=== PATIENT | male | born 1935 | race Asian ===

== ENCOUNTER 2018-07-16 23:12 | Inpatient (IN) | payer MEDICARE, BC ==
[~2018-07-16] VITALS: Ht 175.3 cm; Wt 39.0 kg
[~2018-07-16 23:12] MED LIST: GLIPIZIDE PO; LEVOTHYROXINE PO; LIPITOR PO; METFORMIN PO
[2018-07-16] MEDS ORDERED: IPRATROPIUM (NEB) 0.5 MG/2.5 ML AMP INH STA (23:32)
[2018-07-16] MEDS ORDERED: SODIUM CHLORIDE 0.9% 1L BAG IV* STA (23:32)
[2018-07-16] MEDS ORDERED: AZITHROMYCIN 500MG/NS (PMX) 250 ML IV STA (23:32)
[2018-07-16] MEDS ORDERED: CEFTRIAXONE 1 GM/50 ML (PMX) 50 ML IVPB STA (23:32)
[2018-07-16] MEDS ORDERED: ALBUTEROL 0.083% (NEB) 2.5 MG/3 ML AMP INH STA (23:32)
--- NOTE | 2018-07-16 23:49 | ERD ---
ER Documentation Chief Complaint Chief Complaint PT C/O WEAKNESS,LOW APPETITE AND SOB.USE OF ACCESSORY MUSCLES NOTED HPI 83-year-old male presents for generalized weakness, appetite, with a history of tongue cancer, and concern for pneumonia. Patient had been referred by his primary care doctor, Dr. Ruiz for admission. History obtained from patient and family, he has been breathing somewhat rapidly, and was treated empi rically as an outpatient for possible pneumonia. However his family have still noted his breathing being fast. He has not had a fever, he has not had any confusion, no chest pain or shortness of breath. ROS All systems reviewed and are negative except as per history of present illness. Medications Home Meds Reported Medications [Levothyroxine] No Conflict Check, PO DAILY 06/16/11 [Lipitor] No Conflict Check, PO DAILY 06/16/11 [Metformin] No Conflict Check, PO BID 06/16/11 [Glipizide] No Conflict Check, PO DAILY 06/16/11 Allergies Allergies: Coded Allergies: No Known Drug Allergies (Verified Allergy, 06/16/11) PMhx/Soc History of Surgery: No Anesthesia Reaction: No Hx Neurological Disorder: No Hx Respiratory Disorders: No Hx Cardiac Disorders: No Hx Psychiatric Problems: No Hx Miscellaneous Medical Probl: No Hx Alcohol Use: Yes (OCC[employer]IONALLY [employer]) Hx Substance Use: No Hx Tobacco Use: No Physical Exam Vitals Vital Signs Date Temp Pulse Resp B/P (MAP) Pulse Ox O2 O2 Flow FiO2 Time Delivery Rate 07/16/18 90 18 100 Nasal 2.0 23:49 Cannula 07/16/18 97.9 125 16 156/93 94 23:17 (114) Physical Exam Const: Thin cachectic appearing, chronically ill Head: Atraumatic Eyes: Normal Conjunctiva ENT: Normal External Ears, Nose and Mouth. Neck: Full range of motion. No meningismus. Surgery site of her neck clean dry and intact Resp: Clear to auscultation bilaterally, tachypneic Cardio: Regular rate and rhythm, no murmurs Abd: Soft, non tender, non distended. Normal bowel sounds Skin: No petechiae or rashes Back: No midline or flank tenderness Ext: No cyanosis, or edema Neur: Awake and alert Psych: Normal Mood and Affect Result Diagram: 07/16/18 0133 07/16/18 7107 Results 24 hrs Laboratory Tests Test 07/16/18 23:55 07/17/18 00:20 White Blood Count 8.1 10^3/ul Red Blood Count 4.06 10^6/ul Hemoglobin 12.9 g/dl Hematocrit 40.2 % Mean Corpuscular Volume 99.0 fl Mean Corpuscular Hemoglobin 31.8 pg Mean Corpuscular Hemoglobin Concent 32.1 g/dl Red Cell Distribution Width 13.6 % Platelet Count 291 10^3/UL Mean Platelet Volume 9.6 fl Immature Granulocytes % 0.500 % Neutrophils % 86.9 % Lymphocytes % 4.2 % Monocytes % 7.7 % Eosinophils % 0.2 % Basophils % 0.5 % Nucleated Red Blood Cells % 0.0 /100WBC Immature Granulocytes # 0.040 10^3/ul Neutrophils # 7.0 10^3/ul Lymphocytes # 0.3 10^3/ul Monocytes # 0.6 10^3/ul Eosinophils # 0.0 10^3/ul Basophils # 0.0 10^3/ul Nucleated Red Blood Cells # 0.0 10^3/ul Prothrombin Time 13.8 Sec Prothrombin Time Ratio 1.1 INR International Normalized Ratio 1.05 Activated Partial Thromboplast Time 24.4 Sec Blood Gas Specimen Source Blood venous Arterial Blood Date Drawn 07/17/2018 12:00:03 AM Arterial Blood Gas Puncture Site VENOUS LINE Shorty Test N/A Venous Blood pH 7.371 Venous Blood pCO2 (Temp Corrected) 46.2 mmHG Venous Blood pO2 (Temp Corrected) 26.8 mmHG Venous Blood HCO3 26.2 mmol/L Venous Blood Oxygen Saturation 45.2 mmHG Venous Blood Base Excess 0.4 mmol/L Venous Blood Total Hemoglobin 14.6 g/dl Venous Blood Oxyhemoglobin 44.7 % Venous Blood Methemoglobin 0.2 % Carboxyhemoglobin 0.8 % Blood Gas Temperature 37.0 C Blood Gas Actual Respiration Rate 20 Blood Gas Modality NASAL CANNULA FiO2 27.0 % Blood Gas Notified Whom Vincent LAMB RCP Blood Gas Notified Time 07/17/2018 12:06:25 AM Sodium Level 142 mmol/L Potassium Level 6.0 mmol/L Chloride Level 104 mmol/L Carbon Dioxide Level 28 mmol/L Anion Gap 10 Blood Urea Nitrogen 65 mg/dl Creatinine 1.29 mg/dl Est Glomerular Filtrat Rate mL/min mL/min Glucose Level 897 mg/dl Calcium Level 10.4 mg/dl Total Bilirubin 0.4 mg/dl Direct Bilirubin 0.00 mg/dl Indirect Bilirubin 0.4 mg/dl Aspartate Amino Transf (AST/SGOT) 29 IU/L Alanine Aminotransferase (ALT/SGPT) 17 IU/L Alkaline Phosphatase 137 IU/L Troponin I < 0.012 ng/ml B-Type Natriuretic Peptide 489 PG/ML Total Protein 8.2 g/dl Albumin 4.0 g/dl Globulin 4.20 g/dl Albumin/Globulin Ratio 0.95 POC Venous Lactate 2.4 mmol/L Current Medications Medications Dose Sig/Sarah Start Time Status Last (Trade) Ordered Route PRN Stop Time Admin Dose Reason Admin Sodium 500 ml BOLUS OVER 2 07/16/18 DC 07/17/18 Chloride HOURS STAT 23:32 07/16/18 00:39 (NS) IV* 23:36 Ceftriaxone 50 ml @ ONCE STAT 07/16/18 DC 07/17/18 Sodium 100 mls/hr IVPB 23:32 07/17/18 00:39 00:01 Azithromycin 250 ml @ ONCE STAT 07/16/18 DC 250 mls/hr IV 23:32 07/17/18 00:31 Albuterol 5 mg ONCE STAT 07/16/18 DC 07/16/18 (Proventil INH 23:32 07/16/18 23:49 0.083% (Neb)) 23:37 Ipratropium 0.5 mg ONCE STAT 07/16/18 DC 07/16/18 [place] INH 23:32 07/16/18 23:49 (Atrovent 23:37 0.02% (Neb)) Ondansetron 4 mg ER BRIDGE 07/17/18 HCl (Zofran PRN IV 00:00 07/17/18 Inj) NAUSEA/VOMITI 23:59 NG 650 mg ER BRIDGE 07/17/18 Acetaminophen PRN PO 00:00 07/17/18 (Tylenol .MILD PAIN 23:59 Tab) 1-3 OR TEMP Discontinue PROTOCOL 07/17/18 DC Miscellaneous all previ... ONCE XX 01:00 07/17/18 01:02 Information (* Miscellaneous Pharmacy Order) Diagnostic 1 ea Q1H XX 07/17/18 Test (Pha) 01:00 (Accu-Chek) Insulin 100 ml @ 0 PER 07/17/18 Human mls/hr PROTOCOL IV 01:00 Regular 100 unit/ Sodium Chloride Treatment Per 07/17/18 Miscellaneous of protocol XX 01:00 Hypoglycemia: Information 1.BG 51... (* Miscellaneous Pharmacy Order) Dextrose 25 ml Q15M PRN 07/17/18 (D50w IV 01:00 Syringe) .DECREASED GLUCOSE Dextrose 50 ml Q15M PRN 07/17/18 (D50w IV 01:00 Syringe) .DECREASED GLUCOSE Procedures/MDM This is an 83-year-old male who presents for evaluation of failure to thrive, as well as possible pneumonia. Patient appeared to be chronically ill, which is most likely secondary to his malignancy. His O2 sat was actually relatively nor mal, he is given a breathing treatment, and given empiric antibiotics ceftriaxone as a thrill to treat for the possible pneumonia. As his O2 sat was actually normal, I ordered a VBG to assess for possible acidosis, he does not have any evidence of DKA or metabolic acidosis. However his can panel returned with a blood sugar of 897, given these findings, he will be started on insulin drip, and will be admitted to the ICU. The patient has otherwise remained hemodynamically stable. Critical Care Time: 35 minutes Treatments/Evaluations: Close monitoring and treatment of unstable vital signs, cardiorespiratory, and neurologic status, while maintaining tight balance of fluid, respiratory, and cardiac interventions. This time includes discussing the case with the patient and the patient's family. This time does not include all procedures stated elsewhere in this record. This time also includes reviewing old records, labs and radiological studies. This time includes examining and re-examining the patient. Additionally, this time also includes arranging care with admitting and consulting physicians. EKG: Rate/Rhythm: Normal Sinus Rhythm QRS, ST, T-waves: No changes consistent w/ acute ischemia Impression: No evidence of ischemia or arrhythmia Accepting Care Team: Current data and ongoing care discussed. Primary: Joseph Consulting: None Outstanding Data: none Departure Diagnosis: Primary Impression: Hyperglycemia Additional Impressions: Failure to thrive Failure to thrive age range: in adult Qualified Codes: R62.7 - Adult fail ure to thrive Pneumonia Pneumonia type: due to unspecified organism Laterality: unspecified laterality Lung location: unspecified part of lung Qualified Codes: J18.9 - Pneumonia, unspecified organism Condition: VINH Shen MD Jul 16, 2018 23:49
[2018-07-17] VITALS (22 sets, daily range): BP systolic 108–134; BP diastolic 63–77; PULSE 79–158; RESP 22–34; Ht 175.3 cm; Wt 39.0 kg
[2018-07-17] MEDS ORDERED: ONDANSETRON 4 MG INJ IV PRN
[2018-07-17] MEDS ORDERED: ACETAMINOPHEN 325 MG TAB PO PRN
[2018-07-17] MEDS ORDERED: INSULIN HUMAN REGULAR 100 UNIT in SOD CHLORIDE 0.9% 99 ML IV SCH (01:00)
[2018-07-17] MEDS ORDERED: DEXTROSE 50% 50 ML SYRINGE IV PRN ×4 (01:00→17:30)
[2018-07-17] MEDS ORDERED: SOD CHLORIDE 0.9% 1,000 ML IV ONE (01:30)
[2018-07-17] MEDS: ACCU-CHEK XX SCH ×11 (02:00→11:13)
[2018-07-17] MEDS ORDERED: MIRT15TA5 PO (02:53)
[2018-07-17] MEDS ORDERED: TRAZ-149 PO (02:53)
[2018-07-17] MEDS ORDERED: GLIP5TAB13 PO (02:53)
[2018-07-17] MEDS ORDERED: METF500T24 PO (02:53)
[2018-07-17] MEDS ORDERED: SOD CHLORIDE 0.9% 1,000 ML IV SCH (04:00)
[2018-07-17] MEDS ORDERED: ALBUTEROL 0.083% (NEB) 2.5 MG/3 ML AMP HHN PRN (04:00)
[2018-07-17] MEDS: CEFTRIAXONE 1 GM/50 ML (PMX) 50 ML IVPB SCH (08:24)
[2018-07-17] MEDS: AZITHROMYCIN 500MG/NS (PMX) 250 ML IVPB SCH (11:07)
[2018-07-17] MEDS ORDERED: POTASSIUM CHLORIDE 20 MEQ in SOD CHLORIDE 0.9% 1,000 ML IV SCH (13:00)
[2018-07-17] MEDS ORDERED: POTASSIUM CHLORIDE 0 ML IVPB ONE (13:03)
[2018-07-17] MEDS: POTASSIUM CHLORIDE 20 MEQ in SOD CHLORIDE 0.9% 1,000 ML IV SCH (14:16)
[2018-07-17] MEDS: INSULIN ASPART [NOVOLOG] 3 ML PEN SC SCH ×3 (14:18→20:17)
[2018-07-17] MEDS ORDERED: GLUCOSE GEL 15 GRAM TUBE BUCCAL PRN (17:30)
[2018-07-17] MEDS ORDERED: GLUCAGON 1 MG INJ IM PRN (17:30)
[2018-07-17] MEDS ORDERED: GLUCOSE GEL 15 GRAM TUBE PO PRN ×2 (17:30)
--- NOTE | 2018-07-17 17:32 | CONS ---
DATE OF ADMISSION: 07/16/2018 DATE OF CONSULTATION: TYPE OF CONSULTATION: Gastroenterology. HISTORY OF PRESENT ILLNESS: The patient is an 83-year-old male, who came to the ER complaining of lo ss of appetite and generalized weakness. In the ER, he was evaluated and found to have severe hyperg lycemia with a glucose greater than 800 and lactic acidosis, so he was admitted to intensive care [facility] for further management. The patient also had a tongue cancer on the right side. He had a right he miglossectomy, but a few months ago, he developed positive lymph nodes on the left side and also the tumor on the left side, so he had to undergo block dissection of the left side of the neck and also r adiation and chemo. GI consult was called in for a dysphagia and possible placement of G-tube. Disc ussed with the son, and as per him that his p.o. intake has been extremely poor. He has been losing weight. Barely, he is able to drink Glucerna. No abdominal surgery. No abdominal pain. REVIEW OF SYSTEMS: Otherwise negative. PAST MEDICAL HISTORY: Hypothyroidism, diabetes mellitus. ALLERGIES: NONE. SOCIAL HISTORY: Used to chew tobacco. Does not smoke. Alcohol socially. PHYSICAL EXAMINATION VITALS: Stable. GENERAL: Alert, awake, not in distress. The patient definitely has lost weight. ABDOMEN: Benign. LUNGS: Clear. EXTREMITIES: No edema. CENTRAL NERVOUS SYSTEM: Grossly within normal limits. LABORATORY DATA: Hematocrit is 35.2. WBC is 9.3. INR is 1.1, glucose is 290. IMPRESSION: 1. Dysphagia. 2. Cancer of the tongue and a lymph node, status post block dissection of the left side ,status post radiation and chemotherapy. 3. Diabetes mellitus. 4. Hypothyroidism. 5. Weight loss. PLAN: To optimize his blood sugar and lactic acid level and we will proceed with the placement of G- tube on Thursday. Discussed with the son, who was by the side of the patient and has agreed. We will use a push technique instead of a pull technique to prevent seeding of the tumor at the G-tube site. Dictated By: JC MALONEY/NTS Conf#: [id number] DID#: [id number] CC: DANNY GUEVARA MD;*EndCC*
[2018-07-17] MEDS ORDERED: INSULIN ASPART [NOVOLOG] 3 ML PEN SC SCH (17:35)
[2018-07-17] MEDS ORDERED: traZODone 50 MG TAB PO SCH (21:00)
[2018-07-18] VITALS (23 sets, daily range): BP systolic 92–155; BP diastolic 53–81; PULSE 79–104; RESP 19–32
[2018-07-18] MEDS: POTASSIUM CHLORIDE 20 MEQ in SOD CHLORIDE 0.9% 1,000 ML IV SCH ×4 (00:12→23:16)
[2018-07-18] MEDS: INSULIN ASPART [NOVOLOG] 3 ML PEN SC SCH ×6 (00:16→21:07)
[2018-07-18] MEDS: ACCU-CHEK XX SCH (02:00)
[2018-07-18] MEDS: morphine 4 MG/ML VIAL IV PRN ×3 (02:20→17:45)
[2018-07-18] MEDS: CEFTRIAXONE 1 GM/50 ML (PMX) 50 ML IVPB SCH (08:10)
[2018-07-18] MEDS: AZITHROMYCIN 500MG/NS (PMX) 250 ML IVPB SCH (10:35)
[2018-07-18] MEDS ORDERED: SILVER SULFADIAZINE 1% 25 GM CR TOP ONE (14:30)
[2018-07-18] MEDS: HYDROGEN PEROXIDE 118 ML TOP SCH (14:30)
--- NOTE | 2018-07-18 16:58 | PN ---
DATE: 07/18/2018 SUBJECTIVE: The patient is presently lethargic, has a congested cough. P.o. intake is very poor. OBJECTIVE: VITAL SIGNS: Temperature 99.6, blood pressure 128/64, O2 saturation 96% on nasal cannula. NECK: JVD is not increased. CHEST: Reveals few crackles at the right base. HEART: S1, S2 heard. No definite gallops. EXTREMITIES: No edema. Wasting of the lower extremities. Homans sign is negative. No bleeding not ed from the left neck wound. IMAGING DATA: Chest x-ray from today shows persistent right upper lobe infiltrate. LABORATORY DATA: Blood glucose levels this morning 239, 244, 160 and 330. I and O: 2810 intake. O utput is 1350. BUN is down to 28, creatinine 0.93. Sodium 149. WBC count 9.3, hematocrit 31.5, jerry telet count is 210. Dr. Gleason's GI consultation greatly appreciated. IMPRESSION: 1. 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 2. Diabetes mellitus type 2, uncontrolled. No evidence of diabetic ketoacidosis. 3. Dehydration with prerenal azotemia with lactic acidosis. 4. Right upper lobe pneumonia, possible underlying cancer not ruled out. 5. Mild anemia. Sputum Gram stain and culture and sputum ____ is pending. PLAN: We will proceed with CT of the chest tomorrow and also PEG placement. We will discuss further care with Dr. Perez. We will also request an ID consultation with Dr. Jeffery. Follow recommendatio ns of specialists. The patient's p.o. intake is very poor and therefore I am hesitant to start the p atient on any basal insulin this time. Dictated By: DANNY GUEVARA MD SR/NTS Conf#: [id number] DID#: [id number]
[2018-07-18] MEDS ORDERED: SOD CHLORIDE 0.9% 100 ML ONE (18:52)
[2018-07-18] MEDS ORDERED: IOHEXOL 300MG/ML 150 ML BTL ONE (18:52)
--- NOTE | 2018-07-18 19:37 | CONS ---
Assessment/Plan Assessment/Plan Assessment/Plan (Daily) IMPRESSION: 1. Dysphagia. 2. Cancer of the tongue and a lymph node, status post block dissection of the left side ,status post radiation and chemotherapy. 3. Diabetes mellitus. 4. Hypothyroidism. 5. Weight loss. PLAN: To optimize his blood sugar and lactic acid level and we will proceed with the placement of G-tube on Thursday. Discussed with the son, who was by the side of the patient and has agreed. We will use a push technique instead of a pull technique to prevent seeding of the tumor at the G-tube site. CT scan of the chest has been ordered. If there is mets in the lungs then the family might change their mind regarding the feeding tube. This information I got from the staff nurse. Consultation Date/Type/Reason Admit Date/Time Jul 16, 2018 at 23:50 Initial Consult Date Date/Time of Note DATE: 07/18/18 TIME: 19:37 24 HR Interval Summary Constitutional: no complaints Exam/Review of Systems Exam Vitals Vital Signs Date Temp Pulse Resp B/P (MAP) Pulse Ox O2 O2 Flow FiO2 Time Delivery Rate 07/18/18 2.0 17:00 07/18/18 90 16:00 07/18/18 24 92/53 (66) 96 Nasal 15:00 Cannula 07/18/18 99.6 11:00 Intake and Output 07/17/18 07/17/18 07/18/18 1515:00 23:00 07:00 IntakeIntake Total 1090 ml 870 ml 850 ml OutputOutput Total 400 ml 550 ml 400 ml BalanceBalance 690 ml 320 ml 450 ml Constitutional: alert, oriented, well developed Psych: no complaints, nl mood/affect Head: normocephalic, atraumatic Eyes: nl conjunctiva, EOMI, nl lids, nl sclera, PERRL ENMT: nl external ears & nose, nl lips & teeth, nl nasal mucosa & septum Neck: supple, non-tender Respiratory: clear to auscultation, normal air movement Cardiovascular: regular rate and rhythm, nl pulses Gastrointestinal: soft, nl liver, spleen, non-tender Musculoskeletal: nl extremities to inspection, nl gait and stance Extremities: normal pulses Neurological: [employer] II-XII intact, nl mental status, nl speech, nl strength Skin: nl turgor; No rash or lesions Lymph: nl lymph nodes Results Result Diagram: 6/9/19 0430 07/18/18 0430 Results 24hrs Laboratory Tests Test 07/17/18 20:07 07/18/18 00:11 07/18/18 04:30 07/18/18 05:38 Bedside Glucose 247 H 155 244 H White Blood Count 9.3 Red Blood Count 3.10 L Hemoglobin 9.8 L Hematocrit 31.5 L Mean Corpuscular Volume 101.6 H Mean Corpuscular 31.6 Hemoglobin Mean Corpuscular 31.1 L Hemoglobin Concent Red Cell Distribution 14.2 Width Platelet Count 210 # Mean Platelet Volume 9.7 Immature Granulocytes % 0.800 H Neutrophils % Segmented Neutrophils 55 % (Manual) Band Neutrophils % 43 H (Manual) Lymphocytes % Lymphocytes % (Manual) 1 L Monocytes % Monocytes % (Manual) 1 Eosinophils % Basophils % Nucleated Red Blood 0.0 Cells % Immature Granulocytes # 0.070 H Neutrophils # Neutrophils # (Manual) 5.5 Band Neutrophils # 3.9 H Lymphocytes (Manual) 0.0 L Lymphocytes # Monocytes # Monocytes # (Manual) 0.0 L Eosinophils # Basophils # Nucleated Red Blood Cells # Platelet Estimate NORMAL Poikilocytosis 2+ Sodium Level 149 H Potassium Level 4.7 Chloride Level 119 H Carbon Dioxide Level 25 Anion Gap 5 Blood Urea Nitrogen 28 H Creatinine 0.93 Est Glomerular Filtrat Rate mL/min Glucose Level 239 H Calcium Level 8.7 Phosphorus Level 3.7 Magnesium Level 2.2 Test 07/18/18 08:09 07/18/18 13:29 07/18/18 17:10 Bedside Glucose 160 330 H 117 Medications Medication Current Medications Acetaminophen (Tylenol Tab) 500 mg Q4H PRN PO MILD PAIN(1-3)OR ELEVATED TEMP; Start 07/17/18 at 04:00 Albuterol (Proventil 0.083% (Neb)) 2.5 mg Q4H RESP THERAPY PRN HHN SHORTNESS OF BREATH; Start 07/17/18 at 04:00 Azithromycin 250 ml @ 250 mls/hr Q24H IVPB Last administered on 07/18/18at 10:35; Admin Dose 250 MLS/HR; Start 07/17/18 at 10:00 Ceftriaxone Sodium 50 ml @ 100 mls/hr Q24H IVPB Last administered on 07/18/18at 08:10; Admin Dose 100 MLS/HR; Start 07/17/18 at 09:00 Morphine Sulfate (morphine) 4 mg Q4H PRN IV SEVERE PAIN LEVEL 7-10 Last administered on 07/18/18at 17:45; Admin Dose 4 MG; Start 07/17/18 at 04:00 Ondansetron HCl (Zofran Inj) 4 mg Q4H PRN IV NAUSEA AND/OR VOMITING; Start 07/17/18 at 04:00 Diagnostic Test (Pha) (Accu-Chek) 1 ea 02 XX ; Start 07/18/18 at 02:00 Insulin Aspart (Novolog Insulin Pen) NOVOLOG *MODERATE* ALGORI... Q4 SC Last administered on 07/18/18at 13:33; Admin Dose 10 UNIT; Start 07/17/18 at 13:00 Potassium Chloride 20 meq/ Sodium Chloride 1,010 ml @ 100 mls/hr Q10H6M IV Last administered on 07/18/18at 10:33; Admin Dose 100 MLS/HR; Start 07/17/18 at 13:28 Miscellaneous Information 1 ea NOTE XX ; Start 07/17/18 at 17:30 Glucose (Glutose) 15 gm Q15M PRN PO DECREASED GLUCOSE; Start 07/17/18 at 17:30 Glucose (Glutose) 22.5 gm Q15M PRN PO DECREASED GLUCOSE; Start 07/17/18 at 17:30 Dextrose (D50w Syringe) 25 ml Q15M PRN IV DECREASED GLUCOSE; Start 07/17/18 at 17:30 Dextrose (D50w Syringe) 50 ml Q15M PRN IV DECREASED GLUCOSE; Start 07/17/18 at 17:30 Glucagon (Glucagen) 1 mg Q15M PRN IM DECREASED GLUCOSE; Start 07/17/18 at 17:30 Glucose (Glutose) 15 gm Q15M PRN BUCCAL DECREASED GLUCOSE; Start 07/17/18 at 17:30 Hydrogen Peroxide (Hydrogen Peroxide) 1 applic DAILY TOP Last administered on 07/18/18at 14:30; Admin Dose 1 APPLIC; Start 07/18/18 at 14:30 JC NIELSON MD Jul 18, 2018 19:37
[2018-07-19] VITALS (26 sets, daily range): BP systolic 79–142; BP diastolic 53–77; PULSE 74–95; RESP 20–36
[2018-07-19] MEDS: ACCU-CHEK XX SCH (02:00)
[2018-07-19] MEDS: INSULIN ASPART [NOVOLOG] 3 ML PEN SC SCH ×6 (02:37→21:21)
--- NOTE | 2018-07-19 07:20 | HP ---
DATE OF ADMISSION: 07/16/2018 The patient is an 83-year-old gentleman well-known to me from previous followup with history of tongu e cancer, status post hemiglossectomy in 07/2016 and brachytherapy. The patient has been eating very poorly the last few weeks, and has been getting depressed. Had been seen in my office 10 days ago and had been complaining of right-sided chest pain at the time. Chest x-ray showed a right uppe r lobe infiltrate and patient was going to be placed on Levaquin but had a drug interaction with a gl ipizide, he was placed on amoxicillin with some improvement. Over the last couple of days, patient h as been having increasing lethargy and somewhat altered and has been breathing rapidly and patient's son was concerned and had patient brought to the Emergency Room from where he was admitted. PRIOR MEDICAL HISTORY: As noted above. The patient presented with lesion on the tongue in the left lateral aspect 3 years ago and had been seen by ENT and MRI in 01/2016 was unremarkable. The patient had a biopsy performed by Dr. Woodward in 06/2016 which showed a poorly differentiated squamous cell CA of the tongue. The patient underwent a hemiglossectomy at [facility] and patient also had brachytherapy . The patient had been doing fairly well up until about 8 months back when he was found to have a ma ss on the left lateral aspect of the neck and patient underwent radical left neck dissection as the m ass was found to be metastatic squamous cell carcinoma. The patient is being followed close by Dr. Chong garay and getting chemotherapy. The patient has also been seen by DrCiera from Radiation Therapy and has been started on external beam radiation therapy. REVIEW OF SYSTEMS: Weight loss unquantified recently. EYES: No blurry vision. Glaucoma. ENT: No ncontributory. As above. The patient does have moderate dysphagia which is slowly improving. In vi ew of malnutrition, the patient is being considered for PEG placement. NECK: History of hypothyroid ism, left neck lesion, healing well. No bloody discharge recently. CHEST: Recent cough with right- sided chest pain. There has been no prior history of TB or exposure to anyone with TB. No history o f hemoptysis. HEART: No orthopnea, palpitations. GI: Poor appetite. Poor p.o. intake. No constipation or diarrhea. : No dysuria or kidney stones. MEDICATIONS: Include: 1. Metformin 500 mg q. daily. 2. Glipizide 5 mg q. daily. 3. Synthroid 100 mcg q. daily. 4. Rosuvastatin 5 mg q. daily. 5. Trazadone 50 mg p.o. at bedtime. 6. The patient had been started on Remeron which is on hold as the patient got very lethargic. ALLERGIES: No known allergies. HABITS: No history of alcohol or smoking. Patient used to chew tobacco. FAMILY HISTORY: Noncontributory. PRIOR STUDIES: Include cataract surgeries, hemiglossectomy, left neck dissection. PHYSICAL EXAMINATION: GENERAL: The patient is a cachectic appearing male who is awake, alert presently. VITAL SIGNS: Blood pressure 156/93, temperature 97.9, pulse ox of 100% on 2 L nasal cannula. The pa tient was tachypneic earlier, presently he is not tachypneic. Respirations 18 per minute. Moderate pallor without cyanosis. TONGUE: Coated, dry. NECK: Left neck surgery site is dry. No discharge. CHEST: Decreased breath sounds at the right base. HEART: S1, S2 heard. No definite gallops. ABDOMEN: Soft, nontender, no hepatosplenomegaly. EXTREMITIES: Moderate wasting of both lower extremities. Giovani's sign negative. Pedals 2+ bilatera lly. NEUROLOGIC: Patient awake, alert. Oriented x3. Moves both upper and lower extremities well. LABORATORY DATA: sodium 142, potassium 6.0, BUN 65, creatinine 1.29, glucose is 897, venous la ctate is 2.4, troponin less than 0.01. WBC count 8.1, hematocrit 40.2, platelet count 291,000. PT/I NR 1.05, urine shows negative for ketones, 3+ glucose. Blood gas venous pH 7.37, pCO2 46.2, base exc ess 0.4. The patient has since been placed on insulin drip. The repeat sodium is 153, potassium 3.5, BUN 55, creatinine 1.06. IMPRESSION: 1. Right upper lobe pneumonia. Will need to make sure there is no metastatic disease or cancer. We will also rule out . 2. Lactic acidosis. Combination of diabetes, uncontrolled. Medication effective metformin and also related to recent cancer. 3. . 4. Diabetes mellitus type 2, uncontrolled. So far no evidence of diabetic ketoacidosis. 5. Hyperlipidemia. 6. Hypothyroidism. 7. Malnutrition. PLAN: Will obtain sputum for gram stain and culture. Also, AFB studies, proceed with CT of the ches t tomorrow after adequate hydration and rechecking renal function. Will discontinue insulin drip for now and start the patient on NovoLog insulin coverage q.4h. Had increased intake. Will also consider PEG placement. Will discuss with Dr. Perez regarding further care. I have discussed patient's condition in detail with patient's son, Dr. Nicolas. Will keep the patient in the ICU at least until tomorrow. Will al so obtain blood cultures and close monitoring of electrolytes and renal function. Dictated By: DANNY GUEVARA MD, SR/MINI Conf#: [id number] DID#: [id number]
--- NOTE | 2018-07-19 07:56 | CONS ---
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 and has had a part glossectomy and recently a radical L neck dissection he is not eating well and has lost weight Past Medical History HTN, 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, DM, hyperlipidemia Home Meds Reported Medications Glipizide* (Glipizide*) 5 Mg Tablet, 5 MG PO DAILY for 90 Days, #90 07/17/18 Metformin Hcl* (Metformin Hcl*) 500 Mg Tablet, 500 MG PO BID for 90 Days, #180 07/17/18 Trazodone Hcl* (Desyrel*) 50 Mg Tab, 50 MG PO QHS for 90 Days, #90 07/17/18 Mirtazapine* (Mirtazapine*) 15 Mg Tablet, 15 MG PO DAILY for 30 Days, #30 07/17/18 Discontinued Reported Medications [Levothyroxine] No Conflict Check, PO DAILY 06/16/11 [Lipitor] No Conflict Check, PO DAILY 06/16/11 [Metformin] No Conflict Check, PO BID 06/16/11 [Glipizide] No Conflict Check, PO DAILY 06/16/11 Medications Current Medications Acetaminophen (Tylenol Tab) 500 mg Q4H PRN PO MILD PAIN(1-3)OR ELEVATED TEMP; Start 07/17/18 at 04:00 Albuterol (Proventil 0.083% (Neb)) 2.5 mg Q4H RESP THERAPY PRN HHN SHORTNESS OF BREATH; Start 07/17/18 at 04:00 Azithromycin 250 ml @ 250 mls/hr Q24H IVPB Last administered on 07/18/18at 10 :35; Admin Dose 250 MLS/HR; Start 07/17/18 at 10:00 Ceftriaxone Sodium 50 ml @ 100 mls/hr Q24H IVPB Last administered on 07/18/18at 08:10; Admin Dose 100 MLS/HR; Start 07/17/18 at 09:00 Morphine Sulfate (morphine) 4 mg Q4H PRN IV SEVERE PAIN LEVEL 7-10 Last administered on 07/18/18at 17:45; Admin Dose 4 MG; Start 07/17/18 at 04:00 Ondansetron HCl (Zofran Inj) 4 mg Q4H PRN IV NAUSEA AND/OR VOMITING; Start 07/17/18 at 04:00 Diagnostic Test (Pha) (Accu-Chek) 1 ea 02 XX ; Start 07/18/18 at 02:00 Insulin Aspart (Novolog Insulin Pen) NOVOLOG *MODERATE* ALGORI... Q4 SC Last administered on 07/19/18at 04:56; Admin Dose 2 UNIT; Start 07/17/18 at 13:00 Potassium Chloride 20 meq/ Sodium Chloride 1,010 ml @ 100 mls/hr Q10H6M IV Last administered on 07/18/18at 23:16; Admin Dose 100 MLS/HR; Start 07/17/18 at 1 3:28 Miscellaneous Information 1 ea NOTE XX ; Start 07/17/18 at 17:30 Glucose (Glutose) 15 gm Q15M PRN PO DECREASED GLUCOSE; Start 07/17/18 at 17:30 Glucose (Glutose) 22.5 gm Q15M PRN PO DECREASED GLUCOSE; Start 07/17/18 at 17:30 Dextrose (D50w Syringe) 25 ml Q15M PRN IV DECREASED GLUCOSE; Start 07/17/18 at 17:30 Dextrose (D50w Syringe) 50 ml Q15M PRN IV DECREASED GLUCOSE; Start 07/17/18 at 17:30 Glucagon (Glucagen) 1 mg Q15M PRN IM DECREASED GLUCOSE; Start 07/17/18 at 17:30 Glucose (Glutose) 15 gm Q15M PRN BUCCAL DECREASED GLUCOSE; Start 07/17/18 at 17:30 Hydrogen Peroxide (Hydrogen Peroxide) 1 applic DAILY TOP Last administered on 07/18/18at 14:30; Admin Dose 1 APPLIC; Start 07/18/18 at 14:30 Allergies: Coded Allergies: No Known Drug Allergies (Verified Allergy, Unknown, 07/17/18) Past Surgical History partial glossectomy and radical L neck dissection Social History Smoking Status: Never smoker Exam/Review of Systems Exam Vitals Vital Signs Date Temp Pulse Resp B/P (MAP) Pulse Ox O2 O2 Flow FiO2 Time Delivery Rate 07/19/18 83 24 100 06:15 07/19/18 100/60 Nasal 2.0 06:00 (73) Cannula 07/19/18 98.3 04:00 Intake and Output 07/18/18 07/18/18 07/19/18 1515:00 23:00 07:00 IntakeIntake Total 1130 ml 800 ml 700 ml OutputOutput Total 370 ml 450 ml 325 ml BalanceBalance 760 ml 350 ml 375 ml Constitutional: alert, other (pt is thin) Eyes: nl sclera ENMT: mucosa pink and moist Respiratory: other (some rhonchi on R and decreased BS on L) Cardiovascular: regular rate and rhythm Gastrointestinal: soft, non-tender Musculoskeletal: nl extremities to inspection Neurological: other (non focal) Results Result Diagram: 07/19/18 0535 07/19/18 0535 Results 24hrs Laboratory Tests Test 07/18/18 08:09 07/18/18 13:29 07/18/18 17:10 07/18/18 20:54 Bedside Glucose 160 330 H 117 161 Test 07/19/18 02:33 07/19/18 04:52 07/19/18 05:35 Bedside Glucose 249 H 158 White Blood Count 9.6 Red Blood Count 3.14 L Hemoglobin 10.1 L Hematocrit 31.6 L Mean Corpuscular 100.6 Volume Mean Corpuscular 32.2 Hemoglobin Mean Corpuscular 32.0 Hemoglobin Concent Red Cell Distribution 14.3 Width Platelet Count 182 Mean Platelet Volume 9.3 Immature Granulocytes 0.900 H % Neutrophils % Lymphocytes % Monocytes % Eosinophils % Basophils % Nucleated Red Blood 0.0 Cells % Immature Granulocytes 0.090 H # Neutrophils # Lymphocytes # Monocytes # Eosinophils # Basophils # Nucleated Red Blood Cells # Sodium Level 147 H Potassium Level 4.3 Chloride Level 119 H Carbon Dioxide Level 24 Anion Gap 4 L Blood Urea Nitrogen 19 # Creatinine 0.84 Est Glomerular Filtrat Rate mL/min Glucose Level 143 # Calcium Level 8.8 Medications Medication Current Medications Acetaminophen (Tylenol Tab) 500 mg Q4H PRN PO MILD PAIN(1-3)OR ELEVATED TEMP; Start 07/17/18 at 04:00 Albuterol (Proventil 0.083% (Neb)) 2.5 mg Q4H RESP THERAPY PRN HHN SHORTNESS OF BREATH; Start 07/17/18 at 04:00 Azithromycin 250 ml @ 250 mls/hr Q24H IVPB Last administered on 07/18/18at 10:35; Admin Dose 250 MLS/HR; Start 07/17/18 at 10:00 Ceftriaxone Sodium 50 ml @ 100 mls/hr Q24H IVPB Last administered on 07/18/18 08:10; Admin Dose 100 MLS/HR; Start 07/17/18 at 09:00 Morphine Sulfate (morphine) 4 mg Q4H PRN IV SEVERE PAIN LEVEL 7-10 Last administered on 07/18/18at 17:45; Admin Dose 4 MG; Start 07/17/18 at 04:00 Ondansetron HCl (Zofran Inj) 4 mg Q4H PRN IV NAUSEA AND/OR VOMITING; Start 07/17/18 at 04:00 Diagnostic Test (Pha) (Accu-Chek) 1 ea 02 XX ; Start 07/18/18 at 02:00 Insulin Aspart (Novolog Insulin Pen) NOVOLOG *MODERATE* ALGORI... Q4 SC Last administered on 07/19/18at 04:56; Admin Dose 2 UNIT; Start 07/17/18 at 13:00 Potassium Chloride 20 meq/ Sodium Chloride 1,010 ml @ 100 mls/hr Q10H6M IV Last administered on 07/18/18at 23:16; Admin Dose 100 MLS/HR; Start 07/17/18 at 13:28 Miscellaneous Information 1 ea NOTE XX ; Start 07/17/18 at 17:30 Glucose (Glutose) 15 gm Q15M PRN PO DECREASED GLUCOSE; Start 07/17/18 at 17:30 Glucose (Glutose) 22.5 gm Q15M PRN PO DECREASED GLUCOSE; Start 07/17/18 at 17:30 Dextrose (D50w Syringe) 25 ml Q15M PRN IV DECREASED GLUCOSE; Start 07/17/18 at 17:30 Dextrose (D50w Syringe) 50 ml Q15M PRN IV DECREASED GLUCOSE; Start 07/17/18 at 17:30 Glucagon (Glucagen) 1 mg Q15M PRN IM DECREASED GLUCOSE; Start 07/17/18 at 17:30 Glucose (Glutose) 15 gm Q15M PRN BUCCAL DECREASED GLUCOSE; Start 07/17/18 at 17:30 Hydrogen Peroxide (Hydrogen Peroxide) 1 applic DAILY TOP Last administered on 07/18/18at 14:30; Admin Dose 1 APPLIC; Start 07/18/18 at 14:30 YENNY LUCIANO MD Jul 19, 2018 07:51
[2018-07-19] MEDS ORDERED: SILVER SULFADIAZINE 1% 25 GM CR TOP SCH (09:00)
[2018-07-19] MEDS: SILVER SULFADIAZINE 1% 25 GM CR TOP SCH (09:34)
[2018-07-19] MEDS: AZITHROMYCIN 500MG/NS (PMX) 250 ML IVPB SCH (09:37)
--- NOTE | 2018-07-19 09:46 | PN ---
DATE: 07/19/2018 SUBJECTIVE: Patient is awake today, has congested cough, decreased pain in the right chest. Request ing water. The patient is n.p.o., presently for G-tube placement. Dr. Jeffery' ID consultation greatly appreciated. VITAL SIGNS: Temperature 98.3, blood pressure 95/55, O2 sats 100% on 2 liters nasal cannula. CHEST: Reveals decreased breath sounds at the right base. HEART: S1, S2 with no definite gallops. EXTREMITIES: No edema. LABORATORY DATA: WBC 9.6, hematocrit 31.6. Sodium 147, potassium 4.3, BUN 19, creatinine 0.84. Spu gabino cultures growing gram-negative rods. Chest CT shows patchy dense multifocal pneumonia, right upp er lobe and posterior lower lobes. No suspicion of cancer. IMPRESSION: 1. Right upper and lower lobe pneumonia, possible aspiration. 2. Diabetes mellitus type 2, better controlled. No evidence of DKA. 3. Malnutrition. 4. Hyperlipidemia. 5. Dysphagia. 6. Hypothyroidism. PLAN: Proceed with a PEG. Will continue to monitor the patient in ICU for now, observe for aspiratio n, sepsis. Antibiotics changed to Zosyn per Dr. Jeffery. Will discuss with the patient's family. Dictated By: DANNY GUEVARA MD SR/NTS Conf#: [id number] DID#: [id number]
[2018-07-19] MEDS: HYDROGEN PEROXIDE 118 ML TOP SCH (09:48)
[2018-07-19] MEDS: PIPER-TAZO 2.25 GM (PMX) 50 ML IVPB SCH ×3 (12:50→23:36)
[2018-07-19] MEDS ORDERED: CEFAZOLIN 1 GM/50 ML (PMX) 50 ML IVPB ONE (15:36)
--- NOTE | 2018-07-19 15:39 | PREAC ---
Date/Time of Note Date/Time of Note DATE: 07/19/18 TIME: 15:37 Anesthesia Eval and Record Evaluation Time Pre-Procedure Interview DATE: 07/19/18 TIME: 15:37 Age 83 Sex male NPO: 8 hrs Preoperative diagnosis Dysphagia Planned procedure PEG placement Past Medical History Past Medical History: Includes Cardio: Dyslipidemia Endo: Diabetes, Hypothyroid, Other (Tongue Cancer) Heme: Anemia Surgery & Anesthesia Issues No known issue Meds Anticoagulation: No Beta Libertad within 24 hr: No Reason Beta Libertad not given: Pt. not on B-Libertad Reported Medications Glipizide* (Glipizide*) 5 Mg Tablet, 5 MG PO DAILY for 90 Days, #90 07/17/18 Metformin Hcl* (Metformin Hcl*) 500 Mg Tablet, 500 MG PO BID for 90 Days, #180 07/17/18 Trazodone Hcl* (Desyrel*) 50 Mg Tab, 50 MG PO QHS for 90 Days, #90 07/17/18 Mirtazapine* (Mirtazapine*) 15 Mg Tablet, 15 MG PO DAILY for 30 Days, #30 07/17/18 Discontinued Reported Medications [Levothyroxine] No Conflict Check, PO DAILY 06/16/11 [Lipitor] No Conflict Check, PO DAILY 06/16/11 [Metformin] No Conflict Check, PO BID 06/16/11 [Glipizide] No Conflict Check, PO DAILY 06/16/11 Current Medications Acetaminophen (Tylenol Tab) 500 mg Q4H PRN PO MILD PAIN(1-3)OR ELEVATED TEMP; Start 07/17/18 at 04:00 Albuterol (Proventil 0.083% (Neb)) 2.5 mg Q4H RESP THERAPY PRN HHN SHORTNESS OF BREATH; Start 07/17/18 at 04:00 Azithromycin 250 ml @ 250 mls/hr Q24H IVPB Last administered on 07/19/18at 09:37; Admin Dose 250 MLS/HR; Start 07/17/18 at 10:00 Morphine Sulfate (morphine) 4 mg Q4H PRN IV SEVERE PAIN LEVEL 7-10 Last administered on 07/18/18at 17:45; Admin Dose 4 MG; Start 07/17/18 at 04:00 Ondansetron HCl (Zofran Inj) 4 mg Q4H PRN IV NAUSEA AND/OR VOMITING; Start 07/17/18 at 04:00 Diagnostic Test (Pha) (Accu-Chek) 1 ea 02 XX ; Start 07/18/18 at 02:00 Insulin Aspart (Novolog Insulin Pen) NOVOLOG *MODERATE* ALGORI... Q4 SC Last administered on 07/19/18at 12:57; Admin Dose 1 UNIT; Start 07/17/18 at 13:00 Potassium Chloride 20 meq/ Sodium Chloride 1,010 ml @ 100 mls/hr Q10H6M IV Last administered on 07/18/18at 23:16; Admin Dose 100 MLS/HR; Start 07/17/18 at 13:28 Miscellaneous Information 1 ea NOTE XX ; Start 07/17/18 at 17:30 Glucose (Glutose) 15 gm Q15M PRN PO DECREASED GLUCOSE; Start 07/17/18 at 17:30 Glucose (Glutose) 22.5 gm Q15M PRN PO DECREASED GLUCOSE; Start 07/17/18 at 17:30 Dextrose (D50w Syringe) 25 ml Q15M PRN IV DECREASED GLUCOSE; Start 07/17/18 at 17:30 Dextrose (D50w Syringe) 50 ml Q15M PRN IV DECREASED GLUCOSE; Start 07/17/18 at 17:30 Glucagon (Glucagen) 1 mg Q15M PRN IM DECREASED GLUCOSE; Start 07/17/18 at 17:30 Glucose (Glutose) 15 gm Q15M PRN BUCCAL DECREASED GLUCOSE; Start 07/17/18 at 17:30 Hydrogen Peroxide (Hydrogen Peroxide) 1 applic DAILY TOP Last administered on 07/19/18at 09:48; Admin Dose 1 APPLIC; Start 07/18/18 at 14:30 Piperacillin Sod/ Tazobactam Sod 50 ml @ 100 mls/hr Q6 IVPB Last administered on 07/19/18at 12:50; Admin Dose 100 MLS/HR; Start 07/19/18 at 12:00 Silver Sulfadiazine (Thermazene 1% 25 Gm) 1 applic DAILY TOP Last administered on 07/19/18at 09:34; Admin Dose 1 APPLIC; Start 07/19/18 at 09:00 Meds reviewed: Yes Allergies Coded Allergies: No Known Drug Allergies (Verified Allergy, Unknown, 07/17/18) Allergies Reviewed: Yes Labs/Studies Labs Reviewed: Reviewed by anesthesiologist Result Diagram: 07/19/18 0535 07/19/18 0535 Laboratory Tests 07/19/18 05:35 test: N/A Studies: ECG (NSR), CXR (n/a) Pre-procedure Exam Last vitals Vital Signs Date Temp Pulse Resp B/P (MAP) Pulse Ox O2 O2 Flow FiO2 Time Delivery Rate 07/19/18 98.4 91 25 124/66 99 Nasal 2.0 12:00 (85) Cannula Airway: Adequate mouth opening, Adequate thyromental dist Mallampati: Mallampati II Teeth: Normal Lung: Normal Heart: Normal ASA Physical Status ASA physical status: 3 Emergency: None Planned Anesthetic General/MAC: MAC Planned Pain Management Parenteral pain med, Local by surgeon Pre-operative Attestations Prior to commencing anesthesia and surgery, the patient was re-evaluated, there was verification of: *The patient's identity *The results of appropriate recent lab work and preoperative vital signs *The above evaluation not changing prior to induction *Anesthetic plan, risk benefits, alternative and complications discussed with patient/family; questions answered; patient/family understands, accepts and wishes to proceed. RADHA NIELSEN MD Jul 19, 2018 15:39
--- NOTE | 2018-07-19 16:07 | PAC ---
Date/Time of Note Date/Time of Note DATE: 07/19/18 TIME: 16:06 Post-Anesthesia Notes Post-Anesthesia Note Last documented vital signs Vital Signs Date Temp Pulse Resp B/P (MAP) Pulse Ox O2 O2 Flow FiO2 Time Delivery Rate 07/19/18 98.4 91 25 124/66 99 face mask 8.0 16:05 (85) Activity: WNL Respiratory function: WNL Cardiovascular function: WNL Mental status: Baseline Pain reasonably controlled: Yes Hydration appropriate: Yes Nausea/Vomiting absent: Yes RADHA NIELSEN MD Jul 19, 2018 16:07
[2018-07-19] MEDS ORDERED: HYDROmorphONE 0.5 MG/0.5 ML SYG IV PRN ×2 (16:30)
[2018-07-19] MEDS ORDERED: ONDANSETRON 4 MG INJ IV PRN (16:30)
[2018-07-19] MEDS ORDERED: EPHEDrine 25 MG/5 ML SYG IV PRN (16:30)
[2018-07-19] MEDS ORDERED: FENTAnyl 50 MCG/ML VIAL IV PRN ×2 (16:30)
[2018-07-19] MEDS ORDERED: METOCLOPRAMIDE 10 MG INJ IV PRN (16:30)
[2018-07-19] MEDS ORDERED: LABETALOL HCL 20MG INJ IV PRN (16:30)
[2018-07-19] MEDS: POTASSIUM CHLORIDE 20 MEQ in SOD CHLORIDE 0.9% 1,000 ML IV SCH ×2 (16:39→22:15)
[2018-07-19] MEDS: morphine 4 MG/ML VIAL IV PRN (21:19)
--- NOTE | 2018-07-19 22:26 | CONS ---
DATE OF ADMISSION: 07/16/2018 DATE OF CONSULTATION: 07/19/2018 TYPE OF CONSULTATION: Medical oncology. PHYSICIAN REQUESTING CONSULTATION: Victor Hugo Ruiz MD REASON FOR CONSULTATION: Squamous cell carcinoma of the tongue and hyperglycemia. Dear Dr. Ruiz: Thank you very much for asking me to see this very pleasant gentleman in oncologic consultation. As you know, I am familiar with Mr. Nicolas who is an 83-year-old male who has a diagnosis of squamous c ell carcinoma. This was originally diagnosed in 2015. The patient had at that time been experiencin g discomfort in the lateral aspect of his tongue for 1 to 2 years. In January 2016, an MRI of the neck was performed and there were no specific lesions noted. The elizabeth waters then had a biopsy of the area of complaint. This was on 06/20/2016 and this demonstrated a poor ly differentiated squamous cell carcinoma of the tongue. A PET CT scan was done in 06/2016 that showed abnormality involving the base of the tongue laterally on the left. The patient did undergo a hemiglossectomy at [facility]. He did well for approximately 6 months where he w as found to have a mass in the lateral aspect of the neck on the left side. This was demonstrated to be metastatic squamous cell carcinoma. He underwent a left neck dissection, but did not undergo rad iation therapy at that time. The patient did eventually have radiation which was completed in April of 2018. At the same time, the patient has been receiving concurrent treatment with pembrolizumab. This has been given every 3 weeks. The patient received his 6th and possibly final cycle on 07/16/19 19. The patient is now admitted to [facility] with increasing weakness and fatigue. Th e patient has had very poor oral intake and it was felt that the patient should have a placement of a G-tube for feeding. The patient also recently had a chest x-ray, which did demonstrate a right-sided infiltrate. The elizabeth iegeri had been started on amoxicillin by his primary physician, Dr. Ruiz. The patient was not experiencing any fever or chills, but was experiencing some right-sided chest pain which was somewha t pleuritic in nature. The patient also was scheduled to have a CT scan of the chest. As noted, the patient was seen in my office on 07/15. At that time, he had a white count of 8500, he moglobin 12.3, hematocrit 42.3 and platelet count 318,000. On admission to [facility], however, the patient was found to have a white count of 8100, hemoglobin was 12.9, hematocrit 40.2 and platelet count 291,000. At the same time, however, t he patient had a sodium of 142, potassium 6, but a glucose of 897, creatinine is 1.29. Lactate level was 3.0. Since that time, the patient's glucose has been controlled and is now 142. Sodium is 147, potassium 4.3, BUN 19, creatinine 0.84. On admission, the patient did have a chest x-ray which showed a new right upper lobe infiltrate. A C T scan of the chest also showed patchy multifocal pneumonia in the right upper lobe and posterior low er lobe. The patient has been seen in consultation by Dr. Denis Jeffery who feels that it is unlikely that this is tuberculosis, but there is concern about the possibility of aspiration. The patient at the [facility] nt time receiving antibiotics with Zosyn. PAST MEDICAL HISTORY: Includes the history of diabetes mellitus as well as hyperlipidemia and thyroi d disease. PAST SURGICAL HISTORY: Included hemiglossectomy as well as radical neck dissection. The patient has also had cataract extraction. MEDICATIONS: On admission included: 1. Metformin. 2. Glipizide. 3. Synthroid. 4. Crestor. 5. Trazodone. PHYSICAL EXAMINATION: GENERAL: At this time reveals a well-developed but thin male who is in no acute distress. VITAL SIGNS: Temperature is 98.4, pulse 81 per minute and regular, respirations 27, blood pressure 1 25/64, pulse oximetry 100% on 2 liters of oxygen. SKIN: Poor turgor. No ecchymosis, no petechiae or rashes. HEENT: Normocephalic. No evidence of trauma. Pupils equal, round, reactive to light and accommodat ion. Sclerae are nonicteric. Oral mucosa is dry without lesions. NECK: Supple. No jugular venous distention or thyroid enlargement. There are necrotic nodules in t he left cervical area where the patient has had radiation therapy. No obvious infections. CHEST: Clear to auscultation and percussion. No rhonchi, wheezes, rales or rubs. NODES: No palpable lymphadenopathy in lymph node bearing area. HEART: Regular sinus rhythm, no S3, S4 or murmurs. ABDOMEN: Flat. There is a gastrostomy tube which has recently been placed and there is an abdominal binder in place. EXTREMITIES: No clubbing. No edema or cyanosis. No palpable cords or Homans sign. NEUROLOGIC: Normal. DISCUSSION: This patient has been admitted with extreme hyperglycemia. This may be some regards rel ated to the use up pembrolizumab. This is associated with hyperglycemia. The patient already has di abetes and the combination of the two likely led to the extreme hyperglycemia. The patient has had a great deal of difficulty with any oral intake since radiation therapy. It was planned that he would have a gastrostomy tube placed for nutritional support and this has now been ac complished. As noted, the patient has received 6 cycles up pembrolizumab in addition to radiation therapy. We wi ll repeat a PET CT scan in approximately 4 weeks in order to determine what response to the above omar atment has been. Once again, thank you very much for the opportunity of participating in the medical care of this very pleasant gentleman. I will be happy to follow this patient with you and assist in his oncologic evaluation and followup as necessary. Dictated By: PEEWEE DONALD MD SR/NTS Conf#: [id number] DID#: [id number] CC: VICTOR HUGO RUIZ MD;*EndCC*
[2018-07-19] MEDS ORDERED: INSULIN GLARGINE [LANTus] (100 UNITS/ML) SYG SC ONE (23:00)
[2018-07-20] VITALS (12 sets, daily range): BP systolic 107–144; BP diastolic 57–75; PULSE 76–91; RESP 17–22
[2018-07-20] MEDS: INSULIN ASPART [NOVOLOG] 3 ML PEN SC SCH ×6 (01:14→21:16)
[2018-07-20] MEDS: ACCU-CHEK XX SCH (02:00)
[2018-07-20] MEDS: POTASSIUM CHLORIDE 20 MEQ in SOD CHLORIDE 0.9% 1,000 ML IV SCH (03:45)
[2018-07-20] MEDS: PIPER-TAZO 2.25 GM (PMX) 50 ML IVPB SCH (05:42)
--- NOTE | 2018-07-20 06:48 | CONS ---
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 07/20 - sputum cx grew klebsiella which is very sensitive continue with azithro but change zosyn to unasyn await a.m. labs 3) DM initial sugar was very high but this is much improved 07/20 - overall improved and oncology suggests that his chemo (pembrolizumab) might contribute to his high sugar 4) confusion by report this seems improved Consultation Date/Type/Reason Admit Date/Time Jul 16, 2018 at 23:50 Initial Consult Date 07/19/18 Type of Consult ID Date/Time of Note DATE: 07/20/18 TIME: 06:44 24 HR Interval Summary Free Text/Dictation pt has some L sided chest pain has cough but it is less no N, V, D no abd pain g-tube has been placed Exam/Review of Systems Exam Vitals Vital Signs Date Temp Pulse Resp B/P (MAP) Pulse Ox O2 O2 Flow FiO2 Time Delivery Rate 07/20/18 98.3 84 18 119/68 97 04:30 (85) 07/20/18 2.0 02:35 07/19/18 Nasal 22:15 Cannula Intake and Output 07/19/18 07/19/18 07/20/18 1515:00 23:00 07:00 IntakeIntake Total 1200 ml 375 ml 210 ml OutputOutput Total 710 ml 675 ml 600 ml BalanceBalance 490 ml -300 ml -390 ml Constitutional: alert Eyes: nl sclera ENMT: other (dry) Respiratory: other (decreased BS at R base) Cardiovascular: regular rate and rhythm Gastrointestinal: soft, non-tender Results Result Diagram: 07/19/18 0535 07/19/18 0535 Results 24hrs Laboratory Tests Test 07/19/18 09:36 07/19/18 12:51 07/19/18 17:37 07/19/18 21:17 Bedside Glucose 143 145 142 176 Test 07/20/18 01:01 07/20/18 05:00 07/20/18 05:50 Bedside Glucose 174 229 H White Blood Count Pending Red Blood Count Pending Hemoglobin Pending Hematocrit Pending Mean Corpuscular Pending Volume Mean Corpuscular Pending Hemoglobin Mean Corpuscular Pending Hemoglobin Concent Red Cell Pending Distribution Width Platelet Count Pending Mean Platelet Volume Pending Medications Medication Current Medications Acetaminophen (Tylenol Tab) 500 mg Q4H PRN PO MILD PAIN(1-3)OR ELEVATED TEMP; Start 07/17/18 at 04:00 Albuterol (Proventil 0.083% (Neb)) 2.5 mg Q4H RESP THERAPY PRN HHN SHORTNESS OF BREATH; Start 07/17/18 at 04:00 Azithromycin 250 ml @ 250 mls/hr Q24H IVPB Last administered on 07/19/18at 09:37; Admin Dose 250 MLS/HR; Start 07/17/18 at 10:00 Morphine Sulfate (morphine) 4 mg Q4H PRN IV SEVERE PAIN LEVEL 7-10 Last administered on 07/19/18at 21:19; Admin Dose 4 MG; Start 07/17/18 at 04:00 Ondansetron HCl (Zofran Inj) 4 mg Q4H PRN IV NAUSEA AND/OR VOMITING; Start 07/17/18 at 04:00 Diagnostic Test (Pha) (Accu-Chek) 1 ea 02 XX ; Start 07/18/18 at 02:00 Insulin Aspart (Novolog Insulin Pen) NOVOLOG *MODERATE* ALGORI... Q4 SC Last administered on 07/20/18at 06:28; Admin Dose 6 UNIT; Start 07/17/18 at 13:00 Potassium Chloride 20 meq/ Sodium Chloride 1,010 ml @ 75 mls/hr [id number] IV Last administered on 07/19/18at 22:15; Admin Dose 75 MLS/HR; Start 07/17/18 at 13:28 Miscellaneous Information 1 ea NOTE XX ; Start 07/17/18 at 17:30 Glucose (Glutose) 15 gm Q15M PRN PO DECREASED GLUCOSE; Start 07/17/18 at 17:30 Glucose (Glutose) 22.5 gm Q15M PRN PO DECREASED GLUCOSE; Start 07/17/18 at 17:30 Dextrose (D50w Syringe) 25 ml Q15M PRN IV DECREASED GLUCOSE; Start 07/17/18 at 17:30 Dextrose (D50w Syringe) 50 ml Q15M PRN IV DECREASED GLUCOSE; Start 07/17/18 at 17:30 Glucagon (Glucagen) 1 mg Q15M PRN IM DECREASED GLUCOSE; Start 07/17/18 at 17:30 Glucose (Glutose) 15 gm Q15M PRN BUCCAL DECREASED GLUCOSE; Start 07/17/18 at 17:30 Hydrogen Peroxide (Hydrogen Peroxide) 1 applic DAILY TOP Last administered on 07/19/18at 09:48; Admin Dose 1 APPLIC; Start 07/18/18 at 14:30 Piperacillin Sod/ Tazobactam Sod 50 ml @ 100 mls/hr Q6 IVPB Last administered on 07/20/18at 05:42; Admin Dose 100 MLS/HR; Start 07/19/18 at 12:00 Silver Sulfadiazine (Thermazene 1% 25 Gm) 1 applic DAILY TOP Last administered on 07/19/18at 09:34; Admin Dose 1 APPLIC; Start 07/19/18 at 09:00 YENNY LUCIANO MD Jul 20, 2018 06:48
[2018-07-20] MEDS: HYDROGEN PEROXIDE 118 ML TOP SCH (09:00)
--- NOTE | 2018-07-20 10:02 | PN ---
DATE: 07/20/2018 SUBJECTIVE: The patient is more responsive today. Status post PEG placement yesterday. OBJECTIVE: VITAL SIGNS: Temperature 98.0, blood pressure 122/57, O2 sats 96%, has a congested cough. CHEST: Decreased breath sounds at right base. HEART: S1, S2, no definite gallops. EXTREMITIES: No edema. Dr. Perez's detailed oncologic consultation and recommendation greatly appreciated. LABORATORY DATA: WBC count 8.6, hematocrit 30.1, platelet count is 177,000. Sodium 146, potassium 3 .8, BUN 20, creatinine 0.94. Procalcitonin 0.88. IMPRESSION: 1. Right upper lobe and lower lobe pneumonia, query element of aspiration. 2. Diabetes mellitus type 2 with severe hyperglycemia. Note, Dr. Perez's observations regarding c hemotherapy contributing to hyperglycemia. 3. Dysphagia neurogenic. 4. Hypothyroidism. 5. Status post left hemiglossectomy status post left radical neck dissection for metastatic squamous cell carcinoma. PLAN: We will continue IV antibiotics. Continue G-tube feedings. We will request speech therapy ev aluation for dysphagia. Also, the patient has been having some speech difficulty in view of the gerry re dryness of the mouth. Recheck labs in the morning. Dictated By: DANNY GUEVARA MD SR/NTS Conf#: [id number] DID#: [id number] CC: DANNY GUEVARA MD;*EndCC*
[2018-07-20] MEDS: SILVER SULFADIAZINE 1% 25 GM CR TOP SCH (10:18)
[2018-07-20] MEDS: FLUCONAZOLE 100 MG TAB GTB SCH (10:18)
[2018-07-20] MEDS: AZITHROMYCIN 500MG/NS (PMX) 250 ML IVPB SCH (10:21)
[2018-07-20] MEDS: ACETAMINOPHEN 500 MG TAB PO PRN (10:34)
--- NOTE | 2018-07-20 12:04 | CONS ---
Assessment/Plan Assessment/Plan Assessment/Plan (Daily) IMPRESSION: 1. Dysphagia. 2. Cancer of the tongue and a lymph node, status post block dissection of the left side ,status post radiation and chemotherapy. 3. Diabetes mellitus. 4. Hypothyroidism. 5. Weight loss. 6. Status post PEG, patient is tolerating feeding. Plan Increase feeding. Dietary consultation Speech therapist to evaluate swallowing if patient passes then p.o. feeding for gratification Consultation Date/Type/Reason Admit Date/Time Jul 16, 2018 at 23:50 Initial Consult Date Date/Time of Note DATE: 07/20/18 TIME: 12:03 24 HR Interval Summary Constitutional: no complaints, improved Exam/Review of Systems Exam Vitals Vital Signs Date Temp Pulse Resp B/P (MAP) Pulse Ox O2 O2 Flow FiO2 Time Delivery Rate 07/20/18 98.0 79 17 107/57 97 11:28 (74) 07/20/18 2.0 08:31 07/19/18 Nasal 22:15 Cannula Intake and Output 07/19/18 07/19/18 07/20/18 1515:00 23:00 07:00 IntakeIntake Total 1200 ml 375 ml 310 ml OutputOutput Total 710 ml 675 ml 600 ml BalanceBalance 490 ml -300 ml -290 ml Constitutional: alert, oriented, well developed Psych: no complaints, nl mood/affect Head: normocephalic, atraumatic Eyes: nl conjunctiva, EOMI, nl lids, nl sclera, PERRL ENMT: nl external ears & nose, nl lips & teeth, nl nasal mucosa & septum Neck: supple, non-tender Respiratory: clear to auscultation, normal air movement Cardiovascular: regular rate and rhythm, nl pulses Gastrointestinal: soft, nl liver, spleen, non-tender Musculoskeletal: nl extremities to inspection, nl gait and stance Extremities: normal pulses Neurological: RAIL 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 intact, nl mental status, nl speech, nl strength Skin: nl turgor; No rash or lesions Lymph: nl lymph nodes Results Result Diagram: 07/20/18 0550 07/20/18 0550 Results 24hrs Laboratory Tests Test 07/19/18 12:51 07/19/18 17:37 07/19/18 21:17 07/20/18 01:01 Bedside Glucose 145 142 176 174 Test 07/20/18 05:00 07/20/18 05:50 07/20/18 09:01 Bedside Glucose 229 H 155 White Blood Count 8.6 Red Blood Count 3.03 L Hemoglobin 9.5 L Hematocrit 30.1 L Mean Corpuscular 99.3 Volume Mean Corpuscular 31.4 Hemoglobin Mean Corpuscular 31.6 L Hemoglobin Concent Red Cell 14.0 Distribution Width Platelet Count 177 Mean Platelet Volume 9.4 Immature 1.200 H Granulocytes % Neutrophils % Segmented 75 Neutrophils % (Manual) Band Neutrophils % 23 H (Manual) Lymphocytes % Lymphocytes % 1 L (Manual) Monocytes % Monocytes % (Manual) 1 Eosinophils % Basophils % Nucleated Red Blood 0.0 Cells % Immature 0.100 H Granulocytes # Neutrophils # Neutrophils # 6.6 (Manual) Band Neutrophils # 1.9 H Lymphocytes (Manual) 0.0 L Lymphocytes # Monocytes # Monocytes # (Manual) 0.0 L Eosinophils # Basophils # Nucleated Red Blood Cells # Platelet Estimate NORMAL Polychromasia 3+ Anisocytosis 1+ Microcytosis 1+ Sodium Level 146 H Potassium Level 3.8 Chloride Level 117 H Carbon Dioxide Level 23 Anion Gap 6 Blood Urea Nitrogen 20 Creatinine 0.94 Est Glomerular Filtrat Rate mL/min Glucose Level 204 Calcium Level 8.3 L Procalcitonin 0.88 H Medications Medication Current Medications Acetaminophen (Tylenol Tab) 500 mg Q4H PRN PO MILD PAIN(1-3)OR ELEVATED TEMP Last administered on 07/20/18at 10:34; Admin Dose 500 MG; Start 07/17/18 at 04:00 Albuterol (Proventil 0.083% (Neb)) 2.5 mg Q4H RESP THERAPY PRN HHN SHORTNESS OF BREATH; Start 07/17/18 at 04:00 Azithromycin 250 ml @ 250 mls/hr Q24H IVPB Last administered on 07/20/18at 10:21; Admin Dose 250 MLS/HR; Start 07/17/18 at 10:00 Morphine Sulfate (morphine) 4 mg Q4H PRN IV SEVERE PAIN LEVEL 7-10 Last administered on 07/19/18at 21:19; Admin Dose 4 MG; Start 07/17/18 at 04:00 Ondansetron HCl (Zofran Inj) 4 mg Q4H PRN IV NAUSEA AND/OR VOMITING; Start 07/17/18 at 04:00 Diagnostic Test (Pha) (Accu-Chek) 1 ea 02 XX ; Start 07/18/18 at 02:00 Insulin Aspart (Novolog Insulin Pen) NOVOLOG *MODERATE* ALGORI... Q4 SC Last administered on 07/20/18at 09:06; Admin Dose 2 UNIT; Start 07/17/18 at 13:00 Potassium Chloride 20 meq/ Sodium Chloride 1,010 ml @ 75 mls/hr [id number] IV Last administered on 07/19/18at 22:15; Admin Dose 75 MLS/HR; Start 07/17/18 at 13:28 Miscellaneous Information 1 ea NOTE XX ; Start 07/17/18 at 17:30 Glucose (Glutose) 15 gm Q15M PRN PO DECREASED GLUCOSE; Start 07/17/18 at 17:30 Glucose (Glutose) 22.5 gm Q15M PRN PO DECREASED GLUCOSE; Start 07/17/18 at 17:30 Dextrose (D50w Syringe) 25 ml Q15M PRN IV DECREASED GLUCOSE; Start 07/17/18 at 17:30 Dextrose (D50w Syringe) 50 ml Q15M PRN IV DECREASED GLUCOSE; Start 07/17/18 at 17:30 Glucagon (Glucagen) 1 mg Q15M PRN IM DECREASED GLUCOSE; Start 07/17/18 at 17:30 Glucose (Glutose) 15 gm Q15M PRN BUCCAL DECREASED GLUCOSE; Start 07/17/18 at 17:30 Hydrogen Peroxide (Hydrogen Peroxide) 1 applic DAILY TOP Last administered on 07/20/18at 09:00; Admin Dose 1 APPLIC; Start 07/18/18 at 14:30 Silver Sulfadiazine (Thermazene 1% 25 Gm) 1 applic DAILY TOP Last administered on 07/20/18at 10:18; Admin Dose 1 APPLIC; Start 07/19/18 at 09:00 Ampicillin Sodium/ Sulbactam Sodium 100 ml @ 100 mls/hr Q6 IVPB ; Start 07/20/18 at 12:00 Fluconazole (Diflucan) 100 mg DAILY GTB Last administered on 07/20/18at 10:18; Admin Dose 100 MG; Start 07/20/18 at 09:30 JC NIELSON MD Jul 20, 2018 12:04
[2018-07-20] MEDS: AMPICILLIN/SULB 3 GM/NS (PMX) 100 ML IVPB SCH ×3 (12:30→23:46)
[2018-07-20] MEDS ORDERED: NS + KCL 20 MEQ 1,000 ML IV SCH (17:30)
--- NOTE | 2018-07-20 23:23 | PN ---
DATE: 07/20/2018 SUBJECTIVE: The patient states he has no pain related to G-tube. He has had infusion of G-tube feed ings without complaints of nausea or vomiting. The patient has had no shortness of breath or cough. OBJECTIVE: GENERAL: The patient is a well-developed, well-nourished male in no acute distress. VITAL SIGNS: Temperature 97.4 orally, pulse 91 per minute and regular, respirations 18, blood pressu re 141/97, pulse oximetry 98% on room air. SKIN: No ecchymosis. No petechiae or rashes but poor turgor. HEENT: Normocephalic. No evidence of trauma. Pupils equal, round, reactive to light and accommodat ion. Sclerae nonicteric. Oral mucosa is dry but there are no lesions. There is nasal oxygen in jerry ce. NECK: Supple. No jugular venous distention or thyroid enlargement. No carotid bruits. There is ev idence of the previous neck dissection on the left side with some ulcerated lymph nodes. No purulenc e. CHEST: Clear to auscultation and percussion. No rhonchi, wheezes, rales or rubs. NODES: No palpable lymphadenopathy. HEART: Regular sinus rhythm. No S3, S4 or murmurs. No rubs. ABDOMEN: Soft. No masses. No ascites. Bowel sounds are active. EXTREMITIES: No clubbing. No edema or cyanosis. No palpable cords or Homans sign. NEUROLOGIC: Normal. LABORATORY DATA: Sodium 146, potassium 3.8, creatinine 0.94 and BUN 20. White count 8600, hemoglobin 9.5, hematocrit 30.1, platelet count 177,000. ASSESSMENT: 1. Squamous cell carcinoma of the tongue. 2. Malnutrition secondary to #1. DISCUSSION: The patient is presently receiving tube feedings via recently placed PEG. He is present ly receiving 50 mL/hr and there does not seem to be any retention. Examination does not reveal any s uccussion splash. The patient's sodium is 146. May need extra free water. We will recheck metabolic panel in the [facility] ing. Also, we will check iron studies as well as folic acid and B12 levels. Dictated By: PEEWEE DONALD MD, SR/MINI Conf#: [id number] DID#: [id number] CC: DANNY GUEVARA MD;*[facility]*
[2018-07-21] VITALS (12 sets, daily range): BP systolic 97–128; BP diastolic 55–71; PULSE 83–94; RESP 17–20
[2018-07-21] MEDS: morphine 4 MG/ML VIAL IV PRN ×2 (00:47→22:36)
[2018-07-21] MEDS: INSULIN ASPART [NOVOLOG] 3 ML PEN SC SCH ×6 (00:59→21:29)
[2018-07-21] MEDS: ACCU-CHEK XX SCH (02:00)
[2018-07-21] MEDS: AMPICILLIN/SULB 3 GM/NS (PMX) 100 ML IVPB SCH ×3 (05:27→17:23)
--- NOTE | 2018-07-21 07:00 | CONS ---
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 07/20 - sputum cx grew klebsiella which is very sensitive continue with azithro but change zosyn to unasyn await a.m. labs 07/21 - continue with unasyn/azithro when procalcitonin is <0.5 will switch to just orals 3) DM initial sugar was very high but this is much improved 07/20 - overall improved and oncology suggests that his chemo (pembrolizumab) might contribute to his high sugar 4) confusion by report this seems improved Consultation Date/Type/Reason Admit Date/Time Jul 16, 2018 at 23:50 Initial Consult Date 07/19/18 Type of Consult ID Date/Time of Note DATE: 07/21/18 TIME: 06:57 24 HR Interval Summary Free Text/Dictation pt states breathing is ok but he has alot of coughing and vomited post coughing this a.m. no diarrhea spoke to nurse, he is tolerating his TF c/o L mid chest pain Exam/Review of Systems Exam Vitals Vital Signs Date Temp Pulse Resp B/P (MAP) Pulse Ox O2 O2 Flow FiO2 Time Delivery Rate 07/21/18 2.0 06:22 07/21/18 89 04:36 07/21/18 98.0 20 120/71 98 03:51 (87) 07/20/18 Nasal 20:00 Cannula Intake and Output 07/20/18 07/20/18 07/21/18 1515:00 23:00 07:00 IntakeIntake Total 500 ml OutputOutput Total 1200 ml BalanceBalance -700 ml Constitutional: alert Eyes: nl sclera ENMT: other (secretions to upper palate, no thrush) Respiratory: clear to auscultation Cardiovascular: regular rate and rhythm Gastrointestinal: soft, non-tender Results Result Diagram: 07/20/18 0550 07/20/18 0550 Results 24hrs Laboratory Tests Test 07/20/18 09:01 07/20/18 12:38 07/20/18 18:16 07/20/18 20:28 Bedside Glucose 155 192 234 H 220 Test 07/21/18 00:53 07/21/18 04:54 07/21/18 06:25 Bedside Glucose 288 H 299 H White Blood Count Pending Red Blood Count Pending Hemoglobin Pending Hematocrit Pending Mean Corpuscular Pending Volume Mean Corpuscular Pending Hemoglobin Mean Corpuscular Pending Hemoglobin Concent Red Cell Pending Distribution Width Platelet Count Pending Mean Platelet Volume Pending Medications Medication Current Medications Acetaminophen (Tylenol Tab) 500 mg Q4H PRN PO MILD PAIN(1-3)OR ELEVATED TEMP Last administered on 07/20/18at 10:34; Admin Dose 500 MG; Start 07/17/18 at 04:00 Albuterol (Proventil 0.083% (Neb)) 2.5 mg Q4H RESP THERAPY PRN HHN SHORTNESS OF BREATH; Start 07/17/18 at 04:00 Azithromycin 250 ml @ 250 mls/hr Q24H IVPB Last administered on 07/20/18at 10:21; Admin Dose 250 MLS/HR; Start 07/17/18 at 10:00 Morphine Sulfate (morphine) 4 mg Q4H PRN IV SEVERE PAIN LEVEL 7-10 Last administered on 07/21/18at 00:47; Admin Dose 4 MG; Start 07/17/18 at 04:00 Ondansetron HCl (Zofran Inj) 4 mg Q4H PRN IV NAUSEA AND/OR VOMITING; Start 07/17/18 at 04:00 Diagnostic Test (Pha) (Accu-Chek) 1 ea 02 XX ; Start 07/18/18 at 02:00 Insulin Aspart (Novolog Insulin Pen) NOVOLOG *MODERATE* ALGORI... Q4 SC Last administered on 07/21/18at 05:06; Admin Dose 8 UNIT; Start 07/17/18 at 13:00 Miscellaneous Information 1 ea NOTE XX ; Start 07/17/18 at 17:30 Glucose (Glutose) 15 gm Q15M PRN PO DECREASED GLUCOSE; Start 07/17/18 at 17:30 Glucose (Glutose) 22.5 gm Q15M PRN PO DECREASED GLUCOSE; Start 07/17/18 at 17:30 Dextrose (D50w Syringe) 25 ml Q15M PRN IV DECREASED GLUCOSE; Start 07/17/18 at 17:30 Dextrose (D50w Syringe) 50 ml Q15M PRN IV DECREASED GLUCOSE; Start 07/17/18 at 17:30 Glucagon (Glucagen) 1 mg Q15M PRN IM DECREASED GLUCOSE; Start 07/17/18 at 17:30 Glucose (Glutose) 15 gm Q15M PRN BUCCAL DECREASED GLUCOSE; Start 07/17/18 at 17:30 Hydrogen Peroxide (Hydrogen Peroxide) 1 applic DAILY TOP Last administered on 07/20/18at 09:00; Admin Dose 1 APPLIC; Start 07/18/18 at 14:30 Silver Sulfadiazine (Thermazene 1% 25 Gm) 1 applic DAILY TOP Last administered on 07/20/18at 10:18; Admin Dose 1 APPLIC; Start 07/19/18 at 09:00 Ampicillin Sodium/ Sulbactam Sodium 100 ml @ 100 mls/hr Q6 IVPB Last administered on 07/21/18at 05:27; Admin Dose 100 MLS/HR; Start 07/20/18 at 12:00 Fluconazole (Diflucan) 100 mg DAILY GTB Last administered on 07/20/18at 10:18; Admin Dose 100 MG; Start 07/20/18 at 09:30 Potassium Chloride/Sodium Chloride 1,000 ml @ 50 mls/hr Q20H IV Last administered on 07/20/18at 18:11; Admin Dose 50 MLS/HR; Start 07/20/18 at 17:30 YENNY LUCIANO MD Jul 21, 2018 07:00
[2018-07-21] MEDS: ACETAMINOPHEN 500 MG TAB PO PRN ×3 (07:06→18:58)
--- NOTE | 2018-07-21 07:40 | CONS ---
Assessment/Plan Assessment/Plan Hospital Course (Demo Recall) 83 yo male with tongue cancer, s/p PEG 1. Dysphagia. 2. Cancer of the tongue and a lymph node, status post block dissection of the left side ,status post radiation and chemotherapy. 3. Diabetes mellitus. 4. Hypothyroidism. 5. Weight loss. 6. Status post PEG, patient is tolerating feeding. Plan Continue tf, goal of 50cc per dietary recommendation Swallow evaluation to assess if pt is able to have some form of PO food for oral gratification Pt examined and plan of care discussed with Dr. Gleason Consultation Date/Type/Reason Admit Date/Time Jul 16, 2018 at 23:50 Initial Consult Date 07/19/18 Date/Time of Note DATE: 07/21/18 TIME: 07:37 24 HR Interval Summary Free Text/Dictation Tolerating tube feeds. NO residuals. Pt is having regular bm. No complaints from pt. Exam/Review of Systems Exam Vitals Vital Signs Date Temp Pulse Resp B/P (MAP) Pulse Ox O2 O2 Flow FiO2 Time Delivery Rate 07/21/18 98.5 91 18 118/63 98 07:25 (81) 07/21/18 2.0 06:22 07/20/18 Nasal 20:00 Cannula Intake and Output 07/20/18 07/20/18 07/21/18 1515:00 23:00 07:00 IntakeIntake Total 500 ml OutputOutput Total 1200 ml BalanceBalance -700 ml Constitutional: alert Psych: no complaints Head: normocephalic Eyes: PERRL Respiratory: normal air movement Cardiovascular: regular rate and rhythm Gastrointestinal: soft, non-tender Results Result Diagram: 07/21/1825 07/21/18 0625 Results 24hrs Laboratory Tests Test 07/20/18 09:01 07/20/18 12:38 07/20/18 18:16 07/20/18 20:28 Bedside Glucose 155 192 234 H 220 Test 07/21/18 00:53 07/21/18 04:54 07/21/18 06:25 Bedside Glucose 288 H 299 H White Blood Count 6.4 # Red Blood Count 3.40 L Hemoglobin 10.6 L Hematocrit 33.0 L Mean Corpuscular 97.1 Volume Mean Corpuscular 31.2 Hemoglobin Mean Corpuscular 32.1 Hemoglobin Concent Red Cell 13.4 Distribution Width Platelet Count 178 Mean Platelet Volume 9.4 Immature 1.100 H Granulocytes % Neutrophils % Lymphocytes % Monocytes % Eosinophils % Basophils % Nucleated Red Blood 0.0 Cells % Immature 0.070 H Granulocytes # Neutrophils # Lymphocytes # Monocytes # Eosinophils # Basophils # Nucleated Red Blood Cells # Sodium Level 144 Potassium Level 3.4 L Chloride Level 110 Carbon Dioxide Level 25 Anion Gap 9 Blood Urea Nitrogen 20 Creatinine 0.83 Est Glomerular Filtrat Rate mL/min Glucose Level 347 H Calcium Level 8.3 L Medications Medication Current Medications Acetaminophen (Tylenol Tab) 500 mg Q4H PRN PO MILD PAIN(1-3)OR ELEVATED TEMP Last administered on 07/21/18at 07:06; Admin Dose 500 MG; Start 07/17/18 at 04:00 Albuterol (Proventil 0.083% (Neb)) 2.5 mg Q4H RESP THERAPY PRN HHN SHORTNESS OF BREATH; Start 07/17/18 at 04:00 Azithromycin 250 ml @ 250 mls/hr Q24H IVPB Last administered on 07/20/18at 10:21; Admin Dose 250 MLS/HR; Start 07/17/18 at 10:00 Morphine Sulfate (morphine) 4 mg Q4H PRN IV SEVERE PAIN LEVEL 7-10 Last administered on 07/21/18at 00:47; Admin Dose 4 MG; Start 07/17/18 at 04:00 Ondansetron HCl (Zofran Inj) 4 mg Q4H PRN IV NAUSEA AND/OR VOMITING; Start 07/17/18 at 04:00 Diagnostic Test (Pha) (Accu-Chek) 1 ea 02 XX ; Start 07/18/18 at 02:00 Insulin Aspart (Novolog Insulin Pen) NOVOLOG *MODERATE* ALGORI... Q4 SC Last administered on 07/21/18at 05:06; Admin Dose 8 UNIT; Start 07/17/18 at 13:00 Miscellaneous Information 1 ea NOTE XX ; Start 07/17/18 at 17:30 Glucose (Glutose) 15 gm Q15M PRN PO DECREASED GLUCOSE; Start 07/17/18 at 17:30 Glucose (Glutose) 22.5 gm Q15M PRN PO DECREASED GLUCOSE; Start 07/17/18 at 17:30 Dextrose (D50w Syringe) 25 ml Q15M PRN IV DECREASED GLUCOSE; Start 07/17/18 at 17:30 Dextrose (D50w Syringe) 50 ml Q15M PRN IV DECREASED GLUCOSE; Start 07/17/18 at 17:30 Glucagon (Glucagen) 1 mg Q15M PRN IM DECREASED GLUCOSE; Start 07/17/18 at 17:30 Glucose (Glutose) 15 gm Q15M PRN BUCCAL DECREASED GLUCOSE; Start 07/17/18 at 17:30 Hydrogen Peroxide (Hydrogen Peroxide) 1 applic DAILY TOP Last administered on 07/20/18at 09:00; Admin Dose 1 APPLIC; Start 07/18/18 at 14:30 Silver Sulfadiazine (Thermazene 1% 25 Gm) 1 applic DAILY TOP Last administered on 07/20/18at 10:18; Admin Dose 1 APPLIC; Start 07/19/18 at 09:00 Ampicillin Sodium/ Sulbactam Sodium 100 ml @ 100 mls/hr Q6 IVPB Last administered on 07/21/18at 05:27; Admin Dose 100 MLS/HR; Start 07/20/18 at 12:00 Fluconazole (Diflucan) 100 mg DAILY GTB Last administered on 07/20/18at 10:18; Admin Dose 100 MG; Start 07/20/18 at 09:30 Potassium Chloride/Sodium Chloride 1,000 ml @ 50 mls/hr Q20H IV Last administered on 07/20/18at 18:11; Admin Dose 50 MLS/HR; Start 07/20/18 at 17:30 ALVAREZ NGUYEN Jul 21, 2018 07:39
[2018-07-21] MEDS: FLUCONAZOLE 100 MG TAB GTB SCH (09:00)
[2018-07-21] MEDS: SILVER SULFADIAZINE 1% 25 GM CR TOP SCH (09:00)
[2018-07-21] MEDS: HYDROGEN PEROXIDE 118 ML TOP SCH (09:01)
[2018-07-21] MEDS: AZITHROMYCIN 500MG/NS (PMX) 250 ML IVPB SCH (09:11)
--- NOTE | 2018-07-21 10:08 | PN ---
DATE: 07/21/2018 SUBJECTIVE: The patient is lethargic. He has congested cough. OBJECTIVE: VITAL SIGNS: Temperature 98.5, blood pressure 118/63, O2 saturation 98% on 2 liters nasal cannula. CHEST: Clear anteriorly. HEART: S1, S2 with no definite gallops. EXTREMITIES: No edema. LABORATORY DATA: Glucose levels have been in hyperglycemic range. 362 at 8:50 a.m. today, potassium 3.4, BUN 20, creatinine 0.83. WBC 6.4, hematocrit 33. IMPRESSION: 1. Right upper lobe and lower lobe pneumonia with likely an element of aspiration. 2. Diabetes mellitus type 2, uncontrolled. 3. Dysphagia. 4. Hypothyroidism. 5. Status post left hemiglossectomy status post left radical neck dissection for metastatic carcinom a. PLAN: We will do speech therapy evaluation for dysphagia and also for speech. Problem is more mecha nical than neurogenic. We will add Lantus insulin 12 units subq. q.p.m. and continue close managemen t. Dictated By: DANNY GUEVARA MD SR/NTS Conf#: [id number] DID#: [id number] CC: DANNY GUEVARA MD;*End[facility]*
[2018-07-21] MEDS: POTASSIUM CHLORIDE 40 MEQ in SOD CHLORIDE 0.9% 1,000 ML IV SCH (11:25)
[2018-07-21] MEDS: BIOTENE SALIVA STIMULANT SPRAY MUCOUSMEM PRN (14:34)
--- NOTE | 2018-07-21 19:56 | PN ---
DATE: 07/21/2018 SUBJECTIVE: The patient seems to be feeling better. He is resting quietly. Tube feeding is infusin g via G-tube. OBJECTIVE: VITAL SIGNS: Temperature 98.4, pulse 84 per minute and regular, respirations 27, blood pressure 100/ 59, pulse oximetry is 98% on 2 liters of oxygen by nasal cannula. SKIN: Poor skin turgor. No ecchymoses, no petechiae or rashes. HEENT: Normocephalic. No evidence of trauma. Pupils are equal, round, reactive to accommodation. Sclerae are nonicteric. Oral mucosa is dry but without lesions. NECK: Supple. No jugular venous distention or thyroid enlargement. There are these ulcerated nodul es on the left neck which are unchanged from previous. CHEST: Clear to auscultation and percussion. No rhonchi, wheezes, rales or rubs. NODES: No palpable lymphadenopathy in any lymph node bearing area. HEART: Regular sinus rhythm. No S3, S4 or murmurs. ABDOMEN: Soft. There is a G-tube in place. Tube feeding is infusing at the rate of 50 mL per hour. There is no succussion splash. EXTREMITIES: No clubbing. No edema or cyanosis. No palpable cords or Homans sign. NEUROLOGIC: Reveals generalized weakness. LABORATORY DATA: White count 6400, hemoglobin 10.6, hematocrit 33 and platelet count is 178,000. Se rum iron 11, iron binding capacity 174, percent saturation 6 and ferritin is 80.8. Vitamin B12 is 85 2 and percent saturation is 9.3. Sodium 144, potassium 3.4, creatinine is 0.83 and BUN is 20. ASSESSMENT: 1. Squamous cell carcinoma of the tongue, locally advanced. 2. Malnutrition secondary to #1. The patient is receiving tube feeding in an attempt to increase patient's strength. As noted, he has completed radiation therapy and chemotherapy. In approximately 4 weeks, we will rep eat PET-CT scan. Dictated By: PEEWEE DONALD MD SR/NTS Conf#: [id number] DID#: [id number] CC: DANNY GUEVARA MD;*EndCC*
[2018-07-21] MEDS: INSULIN GLARGINE [LANTus] (100 UNITS/ML) SYG SC SCH (21:24)
[2018-07-21] MEDS: ONDANSETRON 4 MG INJ IV PRN (22:36)
[2018-07-22] VITALS (12 sets, daily range): BP systolic 93–123; BP diastolic 8–68; PULSE 80–89; RESP 16–19
[2018-07-22] MEDS: AMPICILLIN/SULB 3 GM/NS (PMX) 100 ML IVPB SCH ×2 (00:24→05:27)
[2018-07-22] MEDS: INSULIN ASPART [NOVOLOG] 3 ML PEN SC SCH ×6 (01:00→20:45)
[2018-07-22] MEDS: ACCU-CHEK XX SCH (02:00)
[2018-07-22] MEDS: POTASSIUM CHLORIDE 40 MEQ in SOD CHLORIDE 0.9% 1,000 ML IV SCH (05:27)
[2018-07-22] MEDS: FLUCONAZOLE 100 MG TAB GTB SCH (08:29)
[2018-07-22] MEDS: SILVER SULFADIAZINE 1% 25 GM CR TOP SCH (08:29)
[2018-07-22] MEDS: HYDROGEN PEROXIDE 118 ML TOP SCH (08:30)
[2018-07-22] MEDS: BIOTENE SALIVA STIMULANT SPRAY MUCOUSMEM PRN (08:48)
--- NOTE | 2018-07-22 09:07 | CONS ---
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 07/20 - sputum cx grew klebsiella which is very sensitive continue with azithro but change zosyn to unasyn await a.m. labs 07/21 - continue with unasyn/azithro when procalcitonin is <0.5 will switch to just orals 07/22 - improved procalcitonin d/c unasyn and start po augmentin/azithro azithro for another 2 days and augmentin length will be for 3-5 days depending upon the repeat procalcitonin 3) DM initial sugar was very high but this is much improved 07/20 - overall improved and oncology suggests that his chemo (pembrolizumab) might contribute to his high sugar 4) confusion by report this seems improved Consultation Date/Type/Reason Admit Date/Time Jul 16, 2018 at 23:50 Initial Consult Date 07/19/18 Type of Consult ID Date/Time of Note DATE: 07/22/18 TIME: 09:05 24 HR Interval Summary Free Text/Dictation pt still has some L mid chest pain no N, V, D breathing is ok minimal cough Exam/Review of Systems Exam Vitals Vital Signs Date Temp Pulse Resp B/P (MAP) Pulse Ox O2 O2 Flow FiO2 Time Delivery Rate 07/22/18 97.9 89 18 116/64 98 Nasal 07:45 (81) Cannula 07/22/18 2.0 05:00 07/21/18 28 23:51 Intake and Output 07/21/18 07/21/18 07/22/18 1515:00 23:00 07:00 IntakeIntake Total 1100 ml 800 ml 2000 ml OutputOutput Total 800 ml 1800 ml 1800 ml BalanceBalance 300 ml -1000 ml 200 ml Constitutional: alert Eyes: nl sclera ENMT: mucosa pink and moist Respiratory: clear to auscultation Cardiovascular: regular rate and rhythm Gastrointestinal: soft, non-tender Results Result Diagram: 07/22/18 0629 07/22/18 0629 Results 24hrs Laboratory Tests Test 07/21/18 13:07 07/21/18 17:24 07/21/18 21:22 07/22/18 01:41 Bedside Glucose 223 H 222 H 204 145 Test 07/22/18 05:28 07/22/18 06:29 07/22/18 08:37 Bedside Glucose 176 250 H White Blood Count 5.7 Red Blood Count 3.14 L Hemoglobin 10.0 L Hematocrit 30.7 L Mean Corpuscular 97.8 Volume Mean Corpuscular 31.8 Hemoglobin Mean Corpuscular 32.6 Hemoglobin Concent Red Cell 13.4 Distribution Width Platelet Count 164 Mean Platelet Volume 9.3 Immature 1.100 H Granulocytes % Neutrophils % 80.3 H Segmented 47 Neutrophils % (Manual) Band Neutrophils % 27 H (Manual) Lymphocytes % 3.7 L Lymphocytes % 6 L (Manual) Monocytes % 5.8 Monocytes % (Manual) 7 Eosinophils % 8.4 H Eosinophils % 12 H (Manual) Basophils % 0.7 Metamyelocytes % 1 H (manual) Nucleated Red Blood 0.0 Cells % Immature 0.060 H Granulocytes # Neutrophils # 4.6 Neutrophils # 2.8 (Manual) Band Neutrophils # 1.5 H Lymphocytes (Manual) 0.3 L Lymphocytes # 0.2 L Monocytes # 0.3 Monocytes # (Manual) 0.3 Eosinophils # 0.5 Basophils # 0.0 Metamyelocytes # 0.0 Nucleated Red Blood 0.0 Cells # Platelet Estimate NORMAL Sodium Level 141 Potassium Level 3.6 Chloride Level 111 H Carbon Dioxide Level 25 Anion Gap 5 Blood Urea Nitrogen 20 Creatinine 0.79 Est Glomerular Filtrat Rate mL/min Glucose Level 208 # Calcium Level 8.0 L Procalcitonin 0.73 H Medications Medication Current Medications Acetaminophen (Tylenol Tab) 500 mg Q4H PRN PO MILD PAIN(1-3)OR ELEVATED TEMP Last administered on 07/21/18at 18:58; Admin Dose 500 MG; Start 07/17/18 at 04:00 Albuterol (Proventil 0.083% (Neb)) 2.5 mg Q4H RESP THERAPY PRN HHN SHORTNESS OF BREATH; Start 07/17/18 at 04:00 Azithromycin 250 ml @ 250 mls/hr Q24H IVPB Last administered on 07/21/18 09:11; Admin Dose 250 MLS/HR; Start 07/17/18 at 10:00 Morphine Sulfate (morphine) 4 mg Q4H PRN IV SEVERE PAIN LEVEL 7-10 Last administered on 07/21/18 22:36; Admin Dose 4 MG; Start 07/17/18 at 04:00 Ondansetron HCl (Zofran Inj) 4 mg Q4H PRN IV NAUSEA AND/OR VOMITING Last administered on 07/21/18 22:36; Admin Dose 4 MG; Start 07/17/18 at 04:00 Diagnostic Test (Pha) (Accu-Chek) 1 ea 02 XX ; Start 07/18/18 at 02:00 Insulin Aspart (Novolog Insulin Pen) NOVOLOG *MODERATE* ALGORI... Q4 SC Last administered on 07/22/18at 08:50; Admin Dose 6 UNIT; Start 07/17/18 at 13:00 Miscellaneous Information 1 ea NOTE XX ; Start 07/17/18 at 17:30 Glucose (Glutose) 15 gm Q15M PRN PO DECREASED GLUCOSE; Start 07/17/18 at 17:30 Glucose (Glutose) 22.5 gm Q15M PRN PO DECREASED GLUCOSE; Start 07/17/18 at 17:30 Dextrose (D50w Syringe) 25 ml Q15M PRN IV DECREASED GLUCOSE; Start 07/17/18 at 17:30 Dextrose (D50w Syringe) 50 ml Q15M PRN IV DECREASED GLUCOSE; Start 07/17/18 at 17:30 Glucagon (Glucagen) 1 mg Q15M PRN IM DECREASED GLUCOSE; Start 07/17/18 at 17:30 Glucose (Glutose) 15 gm Q15M PRN BUCCAL DECREASED GLUCOSE; Start 07/17/18 at 17:30 Hydrogen Peroxide (Hydrogen Peroxide) 1 applic DAILY TOP Last administered on 07/22/18at 08:30; Admin Dose 1 APPLIC; Start 07/18/18 at 14:30 Silver Sulfadiazine (Thermazene 1% 25 Gm) 1 applic DAILY TOP Last administered on 07/22/18 08:29; Admin Dose 1 APPLIC; Start 07/19/18 at 09:00 Ampicillin Sodium/ Sulbactam Sodium 100 ml @ 100 mls/hr Q6 IVPB Last admin istered on 07/22/18 05:27; Admin Dose 100 MLS/HR; Start 07/20/18 at 12:00 Fluconazole (Diflucan) 100 mg DAILY GTB Last administered on 07/22/18 08:29; Admin Dose 100 MG; Start 07/20/18 at 09:30 Insulin Glargine (Lantus) 12 units DAILY@2000 SC Last administered on 07/21/18 21:24; Admin Dose 12 UNITS; Start 07/21/18 at 20:00 Potassium Chloride 40 meq/ Sodium Chloride 1,000 ml @ 50 mls/hr Q20H IV Last administered on 07/22/18 05:27; Admin Dose 50 MLS/HR; Start 07/21/18 at 11:00 Enoxaparin Sodium (Lovenox) 30 mg DAILY SC ; Start 07/22/18 at 21:00 YENNY LUCIANO MD Jul 22, 2018 09:07
[2018-07-22] MEDS: AZITHROMYCIN 250 MG TAB GTB SCH (09:32)
[2018-07-22] MEDS: AMOXICILLIN/CLAV 875 MG TAB GTB SCH ×2 (09:32→20:32)
--- NOTE | 2018-07-22 10:36 | PN ---
DATE: 07/22/2018 SUBJECTIVE: The patient is lethargic, has a congested cough. VITAL SIGNS: Temperature 97.9, blood pressure 116/64, O2 saturation 98% on 2 liters nasal cannula. The patient getting physical therapy and speech therapy. Recommendation greatly appreciated. Tongue coated, dry. NECK: Supple. CHEST: Few rhonchi at the bases. HEART: S1, S2 with no definite gallops. EXTREMITIES: No edema. Wasting of the lower extremities. Homans sign is negative. LABORATORY DATA: Sodium 141, potassium 3.6, BUN 20, creatinine 0.79, glucose 176 and 250 today. Pro calcitonin 0.73. WBC count 5.7, hematocrit 30.7. IMPRESSION: 1. Right upper and lower lobe pneumonia. 2. Diabetes mellitus type 2, better controlled. 3. Dysphagia, status post PEG placement. 4. Status post left hemiglossectomy, status post left radical neck dissection for metastatic carcino ma. PLAN: Continue IV antibiotics, Lantus insulin to continue and patient has been started on Lovenox ye . Dictated By: DANNY GUEVARA MD, SR/NTS Conf#: [id number] DID#: [id number]
[2018-07-22] MEDS: ACETAMINOPHEN 500 MG TAB PO PRN (13:14)
--- NOTE | 2018-07-22 15:56 | PN ---
Date/Time of Note Date/Time of Note DATE: 07/22/18 TIME: 15:53 Assessment/Plan VTE Prophylaxis Risk score (from Ns)>0 risk: 9 SCD applied (from Ns): Yes Pharmacological prophylaxis: LMWH Lines/Catheters IV Catheter Type (from Nrs): Peripheral IV Urinary Cath still in place: Yes Reason Cath still needed: other (indicate) (per primary) Assessment/Plan Assessment/Plan Tube feedings noted. He is tolerating them well according to family. Continue this support for now until he can eat on his own in the usual manner. Swallowing is presently very difficult. Result Diagram: 07/22/18 0629 07/22/18 0629 Results 24hrs Laboratory Tests Test 07/21/18 17:24 07/21/18 21:22 07/22/18 01:41 07/22/18 05:28 Bedside Glucose 222 H 204 145 176 Test 07/22/18 06:29 07/22/18 08:37 07/22/18 13:12 White Blood Count 5.7 Red Blood Count 3.14 L Hemoglobin 10.0 L Hematocrit 30.7 L Mean Corpuscular 97.8 Volume Mean Corpuscular 31.8 Hemoglobin Mean Corpuscular 32.6 Hemoglobin Concent Red Cell 13.4 Distribution Width Platelet Count 164 Mean Platelet Volume 9.3 Immature 1.100 H Granulocytes % Neutrophils % 80.3 H Segmented 47 Neutrophils % (Manual) Band Neutrophils % 27 H (Manual) Lymphocytes % 3.7 L Lymphocytes % 6 L (Manual) Monocytes % 5.8 Monocytes % (Manual) 7 Eosinophils % 8.4 H Eosinophils % 12 H (Manual) Basophils % 0.7 Metamyelocytes % 1 H (manual) Nucleated Red Blood 0.0 Cells % Immature 0.060 H Granulocytes # Neutrophils # 4.6 Neutrophils # 2.8 (Manual) Band Neutrophils # 1.5 H Lymphocytes (Manual) 0.3 L Lymphocytes # 0.2 L Monocytes # 0.3 Monocytes # (Manual) 0.3 Eosinophils # 0.5 Basophils # 0.0 Metamyelocytes # 0.0 Nucleated Red Blood 0.0 Cells # Platelet Estimate NORMAL Sodium Level 141 Potassium Level 3.6 Chloride Level 111 H Carbon Dioxide Level 25 Anion Gap 5 Blood Urea Nitrogen 20 Creatinine 0.79 Est Glomerular Filtrat Rate mL/min Glucose Level 208 # Calcium Level 8.0 L Procalcitonin 0.73 H Bedside Glucose 250 H 236 H Subjective 24 Hr Interval Summary Free Text/Dictation Pt is alert and says there are no new issues. Exam/Review of Systems Exam Vitals Vital Signs Date Temp Pulse Resp B/P (MAP) Pulse Ox O2 O2 Flow FiO2 Time Delivery Rate 07/22/18 98.4 82 16 93/53 (66) 98 Nasal 15:32 Cannula 07/22/18 2.0 05:00 07/21/18 28 23:51 Intake and Output 07/21/18 07/21/18 07/22/18 1515:00 23:00 07:00 IntakeIntake Total 1350 ml 900 ml 2000 ml OutputOutput Total 800 ml 1800 ml 1800 ml BalanceBalance 550 ml -900 ml 200 ml Head: other (bitemporal muscle wasting) Neck: other (pigmented consistent with RT) Respiratory: clear to auscultation Cardiovascular: regular rate and rhythm Gastrointestinal: soft Extremities: other (diffuse loss of muscle mass) Results Results 24hrs Laboratory Tests Test 07/21/18 17:24 07/21/18 21:22 07/22/18 01:41 07/22/18 05:28 Bedside Glucose 222 H 204 145 176 Test 07/22/18 06:29 07/22/18 08:37 07/22/18 13:12 White Blood Count 5.7 Red Blood Count 3.14 L Hemoglobin 10.0 L Hematocrit 30.7 L Mean Corpuscular 97.8 Volume Mean Corpuscular 31.8 Hemoglobin Mean Corpuscular 32.6 Hemoglobin Concent Red Cell 13.4 Distribution Width Platelet Count 164 Mean Platelet Volume 9.3 Immature 1.100 H Granulocytes % Neutrophils % 80.3 H Segmented 47 Neutrophils % (Manual) Band Neutrophils % 27 H (Manual) Lymphocytes % 3.7 L Lymphocytes % 6 L (Manual) Monocytes % 5.8 Monocytes % (Manual) 7 Eosinophils % 8.4 H Eosinophils % 12 H (Manual) Basophils % 0.7 Metamyelocytes % 1 H (manual) Nucleated Red Blood 0.0 Cells % Immature 0.060 H Granulocytes # Neutrophils # 4.6 Neutrophils # 2.8 (Manual) Band Neutrophils # 1.5 H Lymphocytes (Manual) 0.3 L Lymphocytes # 0.2 L Monocytes # 0.3 Monocytes # (Manual) 0.3 Eosinophils # 0.5 Basophils # 0.0 Metamyelocytes # 0.0 Nucleated Red Blood 0.0 Cells # Platelet Estimate NORMAL Sodium Level 141 Potassium Level 3.6 Chloride Level 111 H Carbon Dioxide Level 25 Anion Gap 5 Blood Urea Nitrogen 20 Creatinine 0.79 Est Glomerular Filtrat Rate mL/min Glucose Level 208 # Calcium Level 8.0 L Procalcitonin 0.73 H Bedside Glucose 250 H 236 H Medications Medication Current Medications Acetaminophen (Tylenol Tab) 500 mg Q4H PRN PO MILD PAIN(1-3)OR ELEVATED TEMP Last administered on 07/22/18at 13:14; Admin Dose 500 MG; Start 07/17/18 at 04:00 Albuterol (Proventil 0.083% (Neb)) 2.5 mg Q4H RESP THERAPY PRN HHN SHORTNESS OF BREATH; Start 07/17/18 at 04:00 Morphine Sulfate (morphine) 4 mg Q4H PRN IV SEVERE PAIN LEVEL 7-10 Last administered on 07/21/18at 22:36; Admin Dose 4 MG; Start 07/17/18 at 04:00 Ondansetron HCl (Zofran Inj) 4 mg Q4H PRN IV NAUSEA AND/OR VOMITING Last administered on 07/21/18at 22:36; Admin Dose 4 MG; Start 07/17/18 at 04:00 Diagnostic Test (Pha) (Accu-Chek) 1 ea 02 XX ; Start 07/18/18 at 02:00 Insulin Aspart (Novolog Insulin Pen) NOVOLOG *MODERATE* ALGORI... Q4 SC Last administered on 07/22/18at 13:46; Admin Dose 6 UNIT; Start 07/17/18 at 13:00 Miscellaneous Information 1 ea NOTE XX ; Start 07/17/18 at 17:30 Glucose (Glutose) 15 gm Q15M PRN PO DECREASED GLUCOSE; Start 07/17/18 at 17:30 Glucose (Glutose) 22.5 gm Q15M PRN PO DECREASED GLUCOSE; Start 07/17/18 at 17:30 Dextrose (D50w Syringe) 25 ml Q15M PRN IV DECREASED GLUCOSE; Start 07/17/18 at 17:30 Dextrose (D50w Syringe) 50 ml Q15M PRN IV DECREASED GLUCOSE; Start 07/17/18 at 17:30 Glucagon (Glucagen) 1 mg Q15M PRN IM DECREASED GLUCOSE; Start 07/17/18 at 17:30 Glucose (Glutose) 15 gm Q15M PRN BUCCAL DECREASED GLUCOSE; Start 07/17/18 at 17:30 Hydrogen Peroxide (Hydrogen Peroxide) 1 applic DAILY TOP Last administered on 07/22/18 08:30; Admin Dose 1 APPLIC; Start 07/18/18 at 14:30 Silver Sulfadiazine (Thermazene 1% 25 Gm) 1 applic DAILY TOP Last administered on 07/22/18 08:29; Admin Dose 1 APPLIC; Start 07/19/18 at 09:00 Fluconazole (Diflucan) 100 mg DAILY GTB Last administered on 07/22/18 08:29; Admin Dose 100 MG; Start 07/20/18 at 09:30 Insulin Glargine (Lantus) 12 units DAILY@2000 SC Last administered on 07/21/18 21:24; Admin Dose 12 UNITS; Start 07/21/18 at 20:00 Potassium Chloride 40 meq/ Sodium Chloride 1,000 ml @ 50 mls/hr Q20H IV Last administered on 07/22/18 05:27; Admin Dose 50 MLS/HR; Start 07/21/18 at 11:00 Enoxaparin Sodium (Lovenox) 30 mg DAILY SC ; Start 07/22/18 at 21:00 Amoxicillin/ Clavulanate Potassium (Augmentin) 875 mg BID GTB Last administered on 07/22/18 09:32; Admin Dose 875 MG; Start 07/22/18 at 09:00 Azithromycin (Zithromax) 250 mg DAILY GTB Last administered on 07/22/18 09:32; Admin Dose 250 MG; Start 07/22/18 at 09:30; Stop 07/24/18 at 09:29 JOVAN PEREA MD Jul 22, 2018 15:56
--- NOTE | 2018-07-22 16:27 | CONS ---
Assessment/Plan Assessment/Plan Hospital Course (Demo Recall) 83 yo male with tongue cancer, s/p PEG 1. Dysphagia. 2. Cancer of the tongue and a lymph node, status post block dissection of the left side ,status post radiation and chemotherapy. 3. Diabetes mellitus. 4. Hypothyroidism. 5. Weight loss. 6. Status post PEG, patient is tolerating feeding. Plan Continue tf, goal of 50cc per dietary recommendation Per speech therapy, NPO except very small amount of ice chips qid. Dulcolax 10 mg TN x 1, miralax qd Pt examined and plan of care discussed with Dr. Gleaosn Consultation Date/Type/Reason Admit Date/Time Jul 16, 2018 at 23:50 Initial Consult Date 07/19/18 Date/Time of Note DATE: 07/22/18 TIME: 16:23 24 HR Interval Summary Free Text/Dictation Tolerating tube feeds. NO bm since Thursday per pt . Pt does have some pain at site of g tube when palpated. Exam/Review of Systems Exam Vitals Vital Signs Date Temp Pulse Resp B/P (MAP) Pulse Ox O2 O2 Flow FiO2 Time Delivery Rate 07/22/18 98.4 82 16 93/53 (66) 98 Nasal 15:32 Cannula 07/22/18 2.0 05:00 07/21/18 28 23:51 Intake and Output 07/21/18 07/21/18 07/22/18 1515:00 23:00 07:00 IntakeIntake Total 1350 ml 900 ml 2000 ml OutputOutput Total 800 ml 1800 ml 1800 ml BalanceBalance 550 ml -900 ml 200 ml Constitutional: alert, oriented Eyes: nl sclera Respiratory: normal air movement Gastrointestinal: soft, bowel sounds, tender (tender at ) Neurological: nl mental status (at g tube site) Results Result Diagram: 07/22/18 0629 07/22/18 0629 Results 24hrs Laboratory Tests Test 07/21/18 17:24 07/21/18 21:22 07/22/18 01:41 07/22/18 05:28 Bedside Glucose 222 H 204 145 176 Test 07/22/18 06:29 07/22/18 08:37 07/22/18 13:12 White Blood Count 5.7 Red Blood Count 3.14 L Hemoglobin 10.0 L Hematocrit 30.7 L Mean Corpuscular 97.8 Volume Mean Corpuscular 31.8 Hemoglobin Mean Corpuscular 32.6 Hemoglobin Concent Red Cell 13.4 Distribution Width Platelet Count 164 Mean Platelet Volume 9.3 Immature 1.100 H Granulocytes % Neutrophils % 80.3 H Segmented 47 Neutrophils % (Manual) Band Neutrophils % 27 H (Manual) Lymphocytes % 3.7 L Lymphocytes % 6 L (Manual) Monocytes % 5.8 Monocytes % (Manual) 7 Eosinophils % 8.4 H Eosinophils % 12 H (Manual) Basophils % 0.7 Metamyelocytes % 1 H (manual) Nucleated Red Blood 0.0 Cells % Immature 0.060 H Granulocytes # Neutrophils # 4.6 Neutrophils # 2.8 (Manual) Band Neutrophils # 1.5 H Lymphocytes (Manual) 0.3 L Lymphocytes # 0.2 L Monocytes # 0.3 Monocytes # (Manual) 0.3 Eosinophils # 0.5 Basophils # 0.0 Metamyelocytes # 0.0 Nucleated Red Blood 0.0 Cells # Platelet Estimate NORMAL Sodium Level 141 Potassium Level 3.6 Chloride Level 111 H Carbon Dioxide Level 25 Anion Gap 5 Blood Urea Nitrogen 20 Creatinine 0.79 Est Glomerular Filtrat Rate mL/min Glucose Level 208 # Calcium Level 8.0 L Procalcitonin 0.73 H Bedside Glucose 250 H 236 H Medications Medication Current Medications Acetaminophen (Tylenol Tab) 500 mg Q4H PRN PO MILD PAIN(1-3)OR ELEVATED TEMP Last administered on 07/22/18at 13:14; Admin Dose 500 MG; Start 07/17/18 at 04:00 Albuterol (Proventil 0.083% (Neb)) 2.5 mg Q4H RESP THERAPY PRN HHN SHORTNESS OF BREATH; Start 07/17/18 at 04:00 Morphine Sulfate (morphine) 4 mg Q4H PRN IV SEVERE PAIN LEVEL 7-10 Last administered on 07/21/18at 22:36; Admin Dose 4 MG; Start 07/17/18 at 04:00 Ondansetron HCl (Zofran Inj) 4 mg Q4H PRN IV NAUSEA AND/OR VOMITING Last administered on 07/21/18at 22:36; Admin Dose 4 MG; Start 07/17/18 at 04:00 Diagnostic Test (Pha) (Accu-Chek) 1 ea 02 XX ; Start 07/18/18 at 02:00 Insulin Aspart (Novolog Insulin Pen) NOVOLOG *MODERATE* ALGORI... Q4 SC Last administered on 07/22/18at 13:46; Admin Dose 6 UNIT; Start 07/17/18 at 13:00 Miscellaneous Information 1 ea NOTE XX ; Start 07/17/18 at 17:30 Glucose (Glutose) 15 gm Q15M PRN PO DECREASED GLUCOSE; Start 07/17/18 at 17:30 Glucose (Glutose) 22.5 gm Q15M PRN PO DECREASED GLUCOSE; Start 07/17/18 at 17:30 Dextrose (D50w Syringe) 25 ml Q15M PRN IV DECREASED GLUCOSE; Start 07/17/18 at 17:30 Dextrose (D50w Syringe) 50 ml Q15M PRN IV DECREASED GLUCOSE; Start 07/17/18 at 17:30 Glucagon (Glucagen) 1 mg Q15M PRN IM DECREASED GLUCOSE; Start 07/17/18 at 17:30 Glucose (Glutose) 15 gm Q15M PRN BUCCAL DECREASED GLUCOSE; Start 07/17/18 at 17:30 Hydrogen Peroxide (Hydrogen Peroxide) 1 applic DAILY TOP Last administered on 07/22/18at 08:30; Admin Dose 1 APPLIC; Start 07/18/18 at 14:30 Silver Sulfadiazine (Thermazene 1% 25 Gm) 1 applic DAILY TOP Last administered on 07/22/18at 08:29; Admin Dose 1 APPLIC; Start 07/19/18 at 09:00 Fluconazole (Diflucan) 100 mg DAILY GTB Last administered on 07/22/18at 08:29; Admin Dose 100 MG; Start 07/20/18 at 09:30 Insulin Glargine (Lantus) 12 units DAILY@2000 SC Last administered on 07/21/18at 21:24; Admin Dose 12 UNITS; Start 07/21/18 at 20:00 Potassium Chloride 40 meq/ Sodium Chloride 1,000 ml @ 50 mls/hr Q20H IV Last administered on 07/22/18at 05:27; Admin Dose 50 MLS/HR; Start 07/21/18 at 11:00 Enoxaparin Sodium (Lovenox) 30 mg DAILY SC ; Start 07/22/18 at 21:00 Amoxicillin/ Clavulanate Potassium (Augmentin) 875 mg BID GTB Last administered on 07/22/18at 09:32; Admin Dose 875 MG; Start 07/22/18 at 09:00 Azithromycin (Zithromax) 250 mg DAILY GTB Last administered on 07/22/18at 09:32; Admin Dose 250 MG; Start 07/22/18 at 09:30; Stop 07/24/18 at 09:29 ALVAREZ NGUYEN Jul 22, 2018 16:27
[2018-07-22] MEDS ORDERED: BISACODYL 10 MG SUPP PR ONE (16:30)
[2018-07-22] MEDS: INSULIN GLARGINE [LANTus] (100 UNITS/ML) SYG SC SCH (20:33)
[2018-07-22] MEDS: ENOXAPARIN 30 MG/0.3 ML SYG SC SCH (20:45)
[2018-07-22] MEDS: morphine 4 MG/ML VIAL IV PRN (21:53)
[2018-07-22] MEDS: ONDANSETRON 4 MG INJ IV PRN (21:54)
[2018-07-23] VITALS (10 sets, daily range): BP systolic 101–126; BP diastolic 55–66; PULSE 76–88; RESP 16–20
[2018-07-23] MEDS: INSULIN ASPART [NOVOLOG] 3 ML PEN SC SCH ×6 (01:00→20:54)
[2018-07-23] MEDS: POTASSIUM CHLORIDE 40 MEQ in SOD CHLORIDE 0.9% 1,000 ML IV SCH ×2 (03:44→23:18)
[2018-07-23] MEDS: POLYETHYLENE GLYCOL 17 GM PACKET GTB SCH (08:12)
[2018-07-23] MEDS: AMOXICILLIN/CLAV 875 MG TAB GTB SCH ×2 (08:12→20:48)
[2018-07-23] MEDS: FLUCONAZOLE 100 MG TAB GTB SCH (08:12)
[2018-07-23] MEDS: BIOTENE SALIVA STIMULANT SPRAY MUCOUSMEM PRN (08:13)
[2018-07-23] MEDS: ACETAMINOPHEN 500 MG TAB PO PRN ×2 (08:13→16:31)
[2018-07-23] MEDS: AZITHROMYCIN 250 MG TAB GTB SCH (08:13)
[2018-07-23] MEDS: SILVER SULFADIAZINE 1% 25 GM CR TOP SCH (08:13)
[2018-07-23] MEDS: HYDROGEN PEROXIDE 118 ML TOP SCH (09:00)
--- NOTE | 2018-07-23 09:42 | PN ---
Date/Time of Note Date/Time of Note DATE: 07/23/18 TIME: 09:39 Assessment/Plan VTE Prophylaxis Risk score (from Nsg)>0 risk: 10 SCD applied (from Nsg): Yes Pharmacological prophylaxis: LMWH Lines/Catheters IV Catheter Type (from Nrsg): Peripheral IV Urinary Cath still in place: Yes Reason Cath still needed: other (indicate) (per primary) Assessment/Plan Assessment/Plan Pt is stable. Discussed with family that repair of the nutritional deficits will be a slow process. Continue current plans. Result Diagram: 07/22/18 0629 07/22/18 0629 Results 24hrs Laboratory Tests Test 07/22/18 13:12 07/22/18 17:50 07/22/18 20:31 07/23/18 01:56 Bedside Glucose 236 H 238 H 185 135 Test 07/23/18 06:15 07/23/18 07:02 07/23/18 08:22 Bedside Glucose 146 160 Procalcitonin 0.68 H Subjective 24 Hr Interval Summary Free Text/Dictation Pt stable. Tube feeding tolerated well so far per family. Exam/Review of Systems Exam Vitals Vital Signs Date Temp Pulse Resp B/P (MAP) Pulse Ox O2 O2 Flow FiO2 Time Delivery Rate 07/23/18 Nasal 2.0 08:20 Cannula 07/23/18 81 08:15 07/23/18 98.3 16 111/55 97 07:09 (73) 07/21/18 28 23:51 Intake and Output 07/22/18 07/22/18 07/23/18 1515:00 23:00 07:00 IntakeIntake Total 800 ml 800 ml OutputOutput Total 900 ml 800 ml BalanceBalance -100 ml 0 ml Constitutional: alert Head: other (bitemporal muscle wasting) Eyes: other (mmild pallor) Neck: other (RT changes noted) Respiratory: clear to auscultation Cardiovascular: regular rate and rhythm Gastrointestinal: soft, non-tender Extremities: other (diffuse loss of muscle mass) Skin: other (RT changes in the neck area) Results Results 24hrs Laboratory Tests Test 07/22/18 13:12 07/22/18 17:50 07/22/18 20:31 07/23/18 01:56 Bedside Glucose 236 H 238 H 185 135 Test 07/23/18 06:15 07/23/18 07:02 07/23/18 08:22 Bedside Glucose 146 160 Procalcitonin 0.68 H Medications Medication Current Medications Acetaminophen (Tylenol Tab) 500 mg Q4H PRN PO MILD PAIN(1-3)OR ELEVATED TEMP Last administered on 07/22/18at 13:14; Admin Dose 500 MG; Start 07/17/18 at 04:00 Albuterol (Proventil 0.083% (Neb)) 2.5 mg Q4H RESP THERAPY PRN HHN SHORTNESS OF BREATH; Start 07/17/18 at 04:00 Morphine Sulfate (morphine) 4 mg Q4H PRN IV SEVERE PAIN LEVEL 7-10 Last administered on 07/22/18at 21:53; Admin Dose 4 MG; Start 07/17/18 at 04:00 Ondansetron HCl (Zofran Inj) 4 mg Q4H PRN IV NAUSEA AND/OR VOMITING Last administered on 07/22/18at 21:54; Admin Dose 4 MG; Start 07/17/18 at 04:00 Insulin Aspart (Novolog Insulin Pen) NOVOLOG *MODERATE* ALGORI... Q4 SC Last administered on 07/23/18at 06:18; Admin Dose 2 UNIT; Start 07/17/18 at 13:00 Miscellaneous Information 1 ea NOTE XX ; Start 07/17/18 at 17:30 Glucose (Glutose) 15 gm Q15M PRN PO DECREASED GLUCOSE; Start 07/17/18 at 17:30 Glucose (Glutose) 22.5 gm Q15M PRN PO DECREASED GLUCOSE; Start 07/17/18 at 17:30 Dextrose (D50w Syringe) 25 ml Q15M PRN IV DECREASED GLUCOSE; Start 07/17/18 at 17:30 Dextrose (D50w Syringe) 50 ml Q15M PRN IV DECREASED GLUCOSE; Start 07/17/18 at 17:30 Glucagon (Glucagen) 1 mg Q15M PRN IM DECREASED GLUCOSE; Start 07/17/18 at 17:30 Glucose (Glutose) 15 gm Q15M PRN BUCCAL DECREASED GLUCOSE; Start 07/17/18 at 17:30 Hydrogen Peroxide (Hydrogen Peroxide) 1 applic DAILY TOP Last administered on 07/22/18at 08:30; Admin Dose 1 APPLIC; Start 07/18/18 at 14:30 Silver Sulfadiazine (Thermazene 1% 25 Gm) 1 applic DAILY TOP Last administered on 07/22/18 08:29; Admin Dose 1 APPLIC; Start 07/19/18 at 09:00 Fluconazole (Diflucan) 100 mg DAILY GTB Last administered on 07/22/18 08:29; Admin Dose 100 MG; Start 07/20/18 at 09:30 Insulin Glargine (Lantus) 12 units DAILY@2000 SC Last administered on 07/22/18 20:33; Admin Dose 12 UNITS; Start 07/21/18 at 20:00 Potassium Chloride 40 meq/ Sodium Chloride 1,000 ml @ 50 mls/hr Q20H IV Last administered on 07/23/18 03:44; Admin Dose 50 MLS/HR; Start 07/21/18 at 11:00 Enoxaparin Sodium (Lovenox) 30 mg DAILY SC Last administered on 07/22/18 20:45; Admin Dose 30 MG; Start 07/22/18 at 21:00 Amoxicillin/ Clavulanate Potassium (Augmentin) 875 mg BID GTB Last administered on 07/22/18 20:32; Admin Dose 875 MG; Start 07/22/18 at 09:00 Azithromycin (Zithromax) 250 mg DAILY GTB Last administered on 07/22/18 09:32; Admin Dose 250 MG; Start 07/22/18 at 09:30; Stop 07/24/18 at 09:29 Polyethylene Glycol (Miralax) 17 gm DAILY GTB ; Start 07/23/18 at 09:00 JOVAN PEREA MD Jul 23, 2018 09:42
[2018-07-23] MEDS: ENOXAPARIN 30 MG/0.3 ML SYG SC SCH (10:32)
--- NOTE | 2018-07-23 11:15 | PN ---
DATE: 07/23/2018 SUBJECTIVE: GENERAL: The patient is presently lethargic. VITAL SIGNS: Temperature 98.3, blood pressure 111/55, O2 sat is 97% on 2 liters nasal cannula. CHEST: Revealed few rhonchi at right base. HEART: S1, S2 with no definite gallops. EXTREMITIES: No edema. IMPRESSION: 1. Right upper and right lower lobe pneumonia. 2. Diabetes mellitus type 2. Will get better controlled. 3. Dysphagia, status post percutaneous endoscopic gastrostomy placement. 4. status post left hemiglossectomy. 5. Status post left radical neck dissection for metastatic carcinoma. PLAN: We will continue Lantus insulin. Continue IV antibiotics and observe. Dictated By: DANNY GUEVARA MD, SR/MINI Conf#: [id number] DID#: [id number]
--- NOTE | 2018-07-23 13:29 | CONS ---
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 to review CT with radiology as pt has pleural based infiltrate on RUL to my eyes get wound cx from L neck 07/22 - wound cx grew just skin bacteria, no treatment needed 2) probable pneumonia mild elevation of procalcitonin but pt was on antibiotics [employer] infiltrates noted to RUL and RLL sputum cx has GNR because of possible concern for possible aspiration in light of pt having difficulty swallowing and recent radical L neck dissection I will change ceftriaxone to zosyn to cover anaerobic bacteria nasal is neg for MRSA, so continue with azithro to cover atypicals too repeat procalcitonin in a.m. 07/20 - sputum cx grew klebsiella which is very sensitive continue with azithro but change zosyn to unasyn await a.m. labs 07/21 - continue with unasyn/azithro when procalcitonin is <0.5 will switch to just orals 07/22 - improved procalcitonin d/c unasyn and start po augmentin/azithro azithro for another 2 days and augmentin length will be for 3-5 days depending upon the repeat procalcitonin 07/23 - procalcitonin slowly coming milton continue azithro thru tomorrow and augmentin thru 07/27 I will sign off on case 3) DM initial sugar was very high but this is much improved 07/20 - overall improved and oncology suggests that his chemo (pembrolizumab) might contribute to his high sugar 4) confusion by report this seems improved Consultation Date/Type/Reason Admit Date/Time Jul 16, 2018 at 23:50 Initial Consult Date 07/19/18 Type of Consult ID Date/Time of Note DATE: 07/23/18 TIME: 13:26 Exam/Review of Systems Exam Vitals Vital Signs Date Temp Pulse Resp B/P (MAP) Pulse Ox O2 O2 Flow FiO2 Time Delivery Rate 07/23/18 88 12:10 07/23/18 98.1 18 101/61 98 Nasal 12:04 (74) Cannula 07/23/18 2.0 08:20 07/21/18 28 23:51 Intake and Output 07/22/18 07/22/18 07/23/18 1515:00 23:00 07:00 IntakeIntake Total 800 ml 800 ml OutputOutput Total 900 ml 800 ml BalanceBalance -100 ml 0 ml Results Result Diagram: 07/22/18 0629 07/22/18 0629 Results 24hrs Laboratory Tests Test 07/22/18 17:50 07/22/18 20:31 07/23/18 01:56 07/23/18 06:15 Bedside Glucose 238 H 185 135 146 Test 07/23/18 07:02 07/23/18 08:22 07/23/18 12:50 Procalcitonin 0.68 H Bedside Glucose 160 203 Medications Medication Current Medications Acetaminophen (Tylenol Tab) 500 mg Q4H PRN PO MILD PAIN(1-3)OR ELEVATED TEMP Last administered on 07/23/18at 08:13; Admin Dose 500 MG; Start 07/17/18 at 04:00 Albuterol (Proventil 0.083% (Neb)) 2.5 mg Q4H RESP THERAPY PRN HHN SHORTNESS OF BREATH; Start 07/17/18 at 04:00 Morphine Sulfate (morphine) 4 mg Q4H PRN IV SEVERE PAIN LEVEL 7-10 Last administered on 07/22/18at 21:53; Admin Dose 4 MG; Start 07/17/18 at 04:00 Ondansetron HCl (Zofran Inj) 4 mg Q4H PRN IV NAUSEA AND/OR VOMITING Last administered on 07/22/18at 21:54; Admin Dose 4 MG; Start 07/17/18 at 04:00 Insulin Aspart (Novolog Insulin Pen) NOVOLOG *MODERATE* ALGORI... Q4 SC Last administered on 07/23/18at 13:24; Admin Dose 4 UNIT; Start 07/17/18 at 13:00 Miscellaneous Information 1 ea NOTE XX ; Start 07/17/18 at 17:30 Glucose (Glutose) 15 gm Q15M PRN PO DECREASED GLUCOSE; Start 07/17/18 at 17:30 Glucose (Glutose) 22.5 gm Q15M PRN PO DECREASED GLUCOSE; Start 07/17/18 at 17:30 Dextrose (D50w Syringe) 25 ml Q15M PRN IV DECREASED GLUCOSE; Start 07/17/18 at 17:30 Dextrose (D50w Syringe) 50 ml Q15M PRN IV DECREASED GLUCOSE; Start 07/17/18 at 17:30 Glucagon (Glucagen) 1 mg Q15M PRN IM DECREASED GLUCOSE; Start 07/17/18 at 17:30 Glucose (Glutose) 15 gm Q15M PRN BUCCAL DECREASED GLUCOSE; Start 07/17/18 at 17:30 Hydrogen Peroxide (Hydrogen Peroxide) 1 applic DAILY TOP Last administered on 07/23/18 09:00; Admin Dose 1 APPLIC; Start 07/18/18 at 14:30 Silver Sulfadiazine (Thermazene 1% 25 Gm) 1 applic DAILY TOP Last administered on 07/23/18 08:13; Admin Dose 1 APPLIC; Start 07/19/18 at 09:00 Fluconazole (Diflucan) 100 mg DAILY GTB Last administered on 07/23/18 08:12; Admin Dose 100 MG; Start 07/20/18 at 09:30 Insulin Glargine (Lantus) 12 units DAILY@2000 SC Last administered on 07/22/18 20:33; Admin Dose 12 UNITS; Start 07/21/18 at 20:00 Potassium Chloride 40 meq/ Sodium Chloride 1,000 ml @ 50 mls/hr Q20H IV Last administered on 07/23/18 03:44; Admin Dose 50 MLS/HR; Start 07/21/18 at 11:00 Enoxaparin Sodium (Lovenox) 30 mg DAILY SC Last administered on 07/23/18 10:32; Admin Dose 30 MG; Start 07/22/18 at 21:00 Amoxicillin/ Clavulanate Potassium (Augmentin) 875 mg BID GTB Last administered on 07/23/18 08:12; Admin Dose 875 MG; Start 07/22/18 at 09:00 Azithromycin (Zithromax) 250 mg DAILY GTB Last administered on 07/23/18 08:13; Admin Dose 250 MG; Start 07/22/18 at 09:30; Stop 07/24/18 at 09:29 Polyethylene Glycol (Miralax) 17 gm DAILY GTB Last administered on 07/23/18 08:12; Admin Dose 17 GM; Start 07/23/18 at 09:00 YENNY LUCIANO MD Jul 23, 2018 13:29
--- NOTE | 2018-07-23 17:44 | CONS ---
Assessment/Plan Assessment/Plan Assessment/Plan (Daily) Assessment/Plan Hospital Course (Demo Recall) 83 yo male with tongue cancer, s/p PEG 1. Dysphagia. 2. Cancer of the tongue and a lymph node, status post block dissection of the left side ,status post radiation and chemotherapy. 3. Diabetes mellitus. 4. Hypothyroidism. 5. Weight loss. 6. Status post PEG, patient is tolerating feeding. Plan Continue tf, goal of 50cc per dietary recommendation Per speech therapy, NPO except very small amount of ice chips qid. Dulcolax 10 mg MN x 1, miralax qd We can remove Jenkins's catheter if it is okay with Dr. Ruiz. Discussed with the Consultation Date/Type/Reason Admit Date/Time Jul 16, 2018 at 23:50 Initial Consult Date Date/Time of Note DATE: 07/23/18 TIME: 17:43 24 HR Interval Summary Free Text/Dictation Patient wants Ejnkins's catheter to be removed Constitutional: improved Exam/Review of Systems Exam Vitals Vital Signs Date Temp Pulse Resp B/P (MAP) Pulse Ox O2 O2 Flow FiO2 Time Delivery Rate 07/23/18 78 16:14 07/23/18 98.0 18 103/62 98 Nasal 15:55 (76) Cannula 07/23/18 2.0 08:20 07/21/18 28 23:51 Intake and Output 07/22/18 07/22/18 07/23/18 1515:00 23:00 07:00 IntakeIntake Total 800 ml 800 ml OutputOutput Total 900 ml 800 ml BalanceBalance -100 ml 0 ml Constitutional: alert, oriented, well developed Psych: no complaints, nl mood/affect Head: normocephalic, atraumatic Eyes: nl conjunctiva, EOMI, nl lids, nl sclera, PERRL ENMT: nl external ears & nose, nl lips & teeth, nl nasal mucosa & septum Neck: supple, non-tender Respiratory: clear to auscultation, normal air movement Cardiovascular: regular rate and rhythm, nl pulses Gastrointestinal: soft, nl liver, spleen, non-tender Musculoskeletal: nl extremities to inspection, nl gait and stance Extremities: normal pulses Neurological: CASTING ASSOCIATE II-XII intact, nl mental status, nl speech, nl strength Skin: nl turgor; No rash or lesions Lymph: nl lymph nodes Results Result Diagram: 07/22/18 0629 07/22/18 0629 Results 24hrs Laboratory Tests Test 07/22/18 17:50 07/22/18 20:31 07/23/18 01:56 07/23/18 06:15 Bedside Glucose 238 H 185 135 146 Test 07/23/18 07:02 07/23/18 08:22 07/23/18 12:50 07/23/18 16:45 Procalcitonin 0.68 H Bedside Glucose 160 203 173 Medications Medication Current Medications Acetaminophen (Tylenol Tab) 500 mg Q4H PRN PO MILD PAIN(1-3)OR ELEVATED TEMP Last administered on 07/23/18at 16:31; Admin Dose 500 MG; Start 07/17/18 at 04:00 Albuterol (Proventil 0.083% (Neb)) 2.5 mg Q4H RESP THERAPY PRN HHN SHORTNESS OF BREATH; Start 07/17/18 at 04:00 Morphine Sulfate (morphine) 4 mg Q4H PRN IV SEVERE PAIN LEVEL 7-10 Last admini stered on 07/22/18at 21:53; Admin Dose 4 MG; Start 07/17/18 at 04:00 Ondansetron HCl (Zofran Inj) 4 mg Q4H PRN IV NAUSEA AND/OR VOMITING Last administered on 07/22/18at 21:54; Admin Dose 4 MG; Start 07/17/18 at 04:00 Insulin Aspart (Novolog Insulin Pen) NOVOLOG *MODERATE* ALGORI... Q4 SC Last administered on 07/23/18at 16:50; Admin Dose 2 UNIT; Start 07/17/18 at 13:00 Miscellaneous Information 1 ea NOTE XX ; Start 07/17/18 at 17:30 Glucose (Glutose) 15 gm Q15M PRN PO DECREASED GLUCOSE; Start 07/17/18 at 17:30 Glucose (Glutose) 22.5 gm Q15M PRN PO DECREASED GLUCOSE; Start 07/17/18 at 17:30 Dextrose (D50w Syringe) 25 ml Q15M PRN IV DECREASED GLUCOSE; Start 07/17/18 at 17:30 Dextrose (D50w Syringe) 50 ml Q15M PRN IV DECREASED GLUCOSE; Start 07/17/18 at 17:30 Glucagon (Glucagen) 1 mg Q15M PRN IM DECREASED GLUCOSE; Start 07/17/18 at 17:30 Glucose (Glutose) 15 gm Q15M PRN BUCCAL DECREASED GLUCOSE; Start 07/17/18 at 17:30 Hydrogen Peroxide (Hydrogen Peroxide) 1 applic DAILY TOP Last administered on 07/23/18 09:00; Admin Dose 1 APPLIC; Start 07/18/18 at 14:30 Silver Sulfadiazine (Thermazene 1% 25 Gm) 1 applic DAILY TOP Last administered on 07/23/18 08:13; Admin Dose 1 APPLIC; Start 07/19/18 at 09:00 Fluconazole (Diflucan) 100 mg DAILY GTB Last administered on 07/23/18 08:12; Admin Dose 100 MG; Start 07/20/18 at 09:30 Insulin Glargine (Lantus) 12 units DAILY@2000 SC Last administered on 07/22/18 20:33; Admin Dose 12 UNITS; Start 07/21/18 at 20:00 Potassium Chloride 40 meq/ Sodium Chloride 1,000 ml @ 50 mls/hr Q20H IV Last administered on 07/23/18 03:44; Admin Dose 50 MLS/HR; Start 07/21/18 at 11:00 Enoxaparin Sodium (Lovenox) 30 mg DAILY SC Last administered on 07/23/18 10: 32; Admin Dose 30 MG; Start 07/22/18 at 21:00 Amoxicillin/ Clavulanate Potassium (Augmentin) 875 mg BID GTB Last administered on 07/23/18 08:12; Admin Dose 875 MG; Start 07/22/18 at 09:00 Azithromycin (Zithromax) 250 mg DAILY GTB Last administered on 07/23/18 08:13; Admin Dose 250 MG; Start 07/22/18 at 09:30; Stop 07/24/18 at 09:29 Polyethylene Glycol (Miralax) 17 gm DAILY GTB Last administered on 07/23/18 08:12; Admin Dose 17 GM; Start 07/23/18 at 09:00 JC NIELSON MD Jul 23, 2018 17:44
[2018-07-23] MEDS: INSULIN GLARGINE [LANTus] (100 UNITS/ML) SYG SC SCH (20:55)
[2018-07-23] MEDS: morphine 4 MG/ML VIAL IV PRN (23:12)
[2018-07-24] VITALS (10 sets, daily range): BP systolic 102–118; BP diastolic 53–94; PULSE 64–84; RESP 17–18
[2018-07-24] MEDS: INSULIN ASPART [NOVOLOG] 3 ML PEN SC SCH ×6 (01:51→20:08)
--- NOTE | 2018-07-24 08:27 | CONS ---
Consult Date/Type/Reason Admit Date/Time Jul 16, 2018 at 23:50 Initial Consult Date 07/19/18 Date/Time of Note DATE: 07/24/18 TIME: 08:25 Subjective No overnight events. Pt appears comfortable. Tolerating G-tube feeds. Objective Vitals Vital Signs Date Temp Pulse Resp B/P (MAP) Pulse Ox O2 O2 Flow FiO2 Time Delivery Rate 07/24/18 79 08:18 07/24/18 97.8 17 118/58 98 Nasal 07:30 (78) Cannula 07/24/18 2.0 04:31 07/21/18 28 23:51 Intake and Output 07/23/18 07/23/18 07/24/18 1515:00 23:00 07:00 IntakeIntake Total 800 ml 800 ml OutputOutput Total 1500 ml 950 ml BalanceBalance -700 ml -150 ml Exam NAD/A&Ox3 OP dry RRR CTA ant G-tube in place Cachectic No c/c/e Results/Medications Result Diagram: 07/24/18 0555 07/24/18 0555 Results 24 hrs Laboratory Tests Test 07/23/18 12:50 07/23/18 16:45 07/23/18 20:30 07/24/18 01:25 Bedside Glucose 203 173 203 207 Test 07/24/18 05:05 07/24/18 05:55 Bedside Glucose 236 H White Blood Count 5.6 Red Blood Count 3.26 L Hemoglobin 10.2 L Hematocrit 31.2 L Mean Corpuscular 95.7 Volume Mean Corpuscular 31.3 Hemoglobin Mean Corpuscular 32.7 Hemoglobin Concent Red Cell 13.4 Distribution Width Platelet Count 219 # Mean Platelet Volume 9.6 Immature 1.400 H Granulocytes % Neutrophils % Lymphocytes % Monocytes % Eosinophils % Basophils % Nucleated Red Blood 0.0 Cells % Immature 0.080 H Granulocytes # Neutrophils # Lymphocytes # Monocytes # Eosinophils # Basophils # Nucleated Red Blood Cells # Sodium Level 137 Potassium Level 4.4 Chloride Level 106 Carbon Dioxide Level 26 Anion Gap 5 Blood Urea Nitrogen 20 Creatinine 0.86 Est Glomerular Filtrat Rate mL/min Glucose Level 225 H Calcium Level 8.5 Total Bilirubin 0.2 Direct Bilirubin 0.00 Indirect Bilirubin 0.2 Aspartate Amino 32 Transf (AST/SGOT) Alanine 21 Aminotransferase (AL T/SGPT) Alkaline Phosphatase 178 H Total Protein 6.1 Albumin 2.6 L Globulin 3.50 H Albumin/Globulin 0.74 Ratio Home Meds Reported Medications Glipizide* (Glipizide*) 5 Mg Tablet, 5 MG PO DAILY for 90 Days, #90 07/17/18 Metformin Hcl* (Metformin Hcl*) 500 Mg Tablet, 500 MG PO BID for 90 Days, #180 07/17/18 Trazodone Hcl* (Desyrel*) 50 Mg Tab, 50 MG PO QHS for 90 Days, #90 07/17/18 Mirtazapine* (Mirtazapine*) 15 Mg Tablet, 15 MG PO DAILY for 30 Days, #30 07/17/18 Discontinued Reported Medications [Levothyroxine] No Conflict Check, PO DAILY 06/16/11 [Lipitor] No Conflict Check, PO DAILY 06/16/11 [Metformin] No Conflict Check, PO BID 06/16/11 [Glipizide] No Conflict Check, PO DAILY 06/16/11 Medications Current Medications Acetaminophen (Tylenol Tab) 500 mg Q4H PRN PO MILD PAIN(1-3)OR ELEVATED TEMP Last administered on 07/23/18at 16:31; Admin Dose 500 MG; Start 07/17/18 at 04:00 Albuterol (Proventil 0.083% (Neb)) 2.5 mg Q4H RESP THERAPY PRN HHN SHORTNESS OF BREATH; Start 07/17/18 at 04:00 Morphine Sulfate (morphine) 4 mg Q4H PRN IV SEVERE PAIN LEVEL 7-10 Last administered on 07/23/18at 23:12; Admin Dose 4 MG; Start 07/17/18 at 04:00 Ondansetron HCl (Zofran Inj) 4 mg Q4H PRN IV NAUSEA AND/OR VOMITING Last administered on 07/22/18at 21:54; Admin Dose 4 MG; Start 07/17/18 at 04:00 Insulin Aspart (Novolog Insulin Pen) NOVOLOG *MODERATE* ALGORI... Q4 SC Last administered on 07/24/18at 05:21; Admin Dose 6 UNIT; Start 07/17/18 at 13:00 Miscellaneous Information 1 ea NOTE XX ; Start 07/17/18 at 17:30 Glucose (Glutose) 15 gm Q15M PRN PO DECREASED GLUCOSE; Start 07/17/18 at 17:30 Glucose (Glutose) 22.5 gm Q15M PRN PO DECREASED GLUCOSE; Start 07/17/18 at 17:30 Dextrose (D50w Syringe) 25 ml Q15M PRN IV DECREASED GLUCOSE; Start 07/17/18 at 17:30 Dextrose (D50w Syringe) 50 ml Q15M PRN IV DECREASED GLUCOSE; Start 07/17/18 at 17:30 Glucagon (Glucagen) 1 mg Q15M PRN IM DECREASED GLUCOSE; Start 07/17/18 at 17:30 Glucose (Glutose) 15 gm Q15M PRN BUCCAL DECREASED GLUCOSE; Start 07/17/18 at 17:30 Hydrogen Peroxide (Hydrogen Peroxide) 1 applic DAILY TOP Last administered on 07/23/18 09:00; Admin Dose 1 APPLIC; Start 07/18/18 at 14:30 Silver Sulfadiazine (Thermazene 1% 25 Gm) 1 applic DAILY TOP Last administered on 07/23/18 08:13; Admin Dose 1 APPLIC; Start 07/19/18 at 09:00 Fluconazole (Diflucan) 100 mg DAILY GTB Last administered on 07/23/18 08:12; Admin Dose 100 MG; Start 07/20/18 at 09:30 Insulin Glargine (Lantus) 12 units DAILY@2000 SC Last administered on 07/23/18 20:55; Admin Dose 12 UNITS; Start 07/21/18 at 20:00 Potassium Chloride 40 meq/ Sodium Chloride 1,000 ml @ 50 mls/hr Q20H IV Last administered on 07/23/18 23:18; Admin Dose 50 MLS/HR; Start 07/21/18 at 11:00 Enoxaparin Sodium (Lovenox) 30 mg DAILY SC Last administered on 07/23/18at 10:32; Admin Dose 30 MG; Start 07/22/18 at 21:00 Amoxicillin/ Clavulanate Potassium (Augmentin) 875 mg BID GTB Last administered on 07/23/18 20:48; Admin Dose 875 MG; Start 07/22/18 at 09:00 Azithromycin (Zithromax) 250 mg DAILY GTB Last administered on 07/23/18 08:13; Admin Dose 250 MG; Start 07/22/18 at 09:30; Stop 07/24/18 at 09:29 Polyethylene Glycol (Miralax) 17 gm DAILY GTB Last administered on 07/23/18at 08:12; Admin Dose 17 GM; Start 07/23/18 at 09:00 Assessment/Plan Assessment/Plan (Daily) 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 S/p XRT G-tube in place -Cont with nutrition through g-tube -No new heme/onc recs. -Will f/u on Thursday with INDY Richter Jul 24, 2018 08:27
[2018-07-24] MEDS: AMOXICILLIN/CLAV 875 MG TAB GTB SCH ×2 (08:50→20:02)
[2018-07-24] MEDS: AZITHROMYCIN 250 MG TAB GTB SCH (08:50)
[2018-07-24] MEDS: FLUCONAZOLE 100 MG TAB GTB SCH (08:50)
[2018-07-24] MEDS: POLYETHYLENE GLYCOL 17 GM PACKET GTB SCH (08:51)
[2018-07-24] MEDS: ENOXAPARIN 30 MG/0.3 ML SYG SC SCH (09:36)
[2018-07-24] MEDS: SILVER SULFADIAZINE 1% 25 GM CR TOP SCH (09:45)
[2018-07-24] MEDS: HYDROGEN PEROXIDE 118 ML TOP SCH (09:46)
[2018-07-24] MEDS: ACETAMINOPHEN 500 MG TAB PO PRN ×2 (11:57→20:20)
--- NOTE | 2018-07-24 18:41 | PN ---
DATE: 07/24/2018 SUBJECTIVE: The patient is more responsive today, has a congested cough. PHYSICAL EXAMINATION VITAL SIGNS: Temperature 97.7, blood pressure 102/56, O2 saturation 98% on room air. HEENT: Mild pallor. No cyanosis. CHEST: Few crackles heard at right base. HEART: S1, S2 heard, no definite gallops. EXTREMITIES: No edema. LABORATORY DATA: WBC count is 5.6, hematocrit 31.2, glucose 225, 220, 230. IMPRESSION: 1. Right upper and right lower lobe pneumonia. 2. Diabetes mellitus type 2, not adequately controlled. 3. Dysphagia, status post percutaneous endoscopic gastrostomy placement. 4. Status post left hemiglossectomy. 5. Status post left radical neck dissection for metastatic carcinoma. PLAN: We will increase the dose of Lantus insulin. Mobilize, physical therapy. Dictated By: DANNY GUEVARA MD SR/NTS Conf#: [id number] DID#: [id number] CC: DANNY GUEVARA MD;*EndCC*
[2018-07-24] MEDS ORDERED: INSULIN GLARGINE [LANTus] (100 UNITS/ML) SYG SC SCH (20:00)
[2018-07-24] MEDS: morphine 4 MG/ML VIAL IV PRN (23:29)
[2018-07-25] VITALS (10 sets, daily range): BP systolic 103–128; BP diastolic 55–71; PULSE 74–88; RESP 17–20
[2018-07-25] MEDS: INSULIN ASPART [NOVOLOG] 3 ML PEN SC SCH ×6 (00:39→20:44)
[2018-07-25] MEDS: AMOXICILLIN/CLAV 875 MG TAB GTB SCH ×2 (08:24→20:32)
[2018-07-25] MEDS: FLUCONAZOLE 100 MG TAB GTB SCH (08:24)
[2018-07-25] MEDS: HYDROGEN PEROXIDE 118 ML TOP SCH (08:25)
[2018-07-25] MEDS: POLYETHYLENE GLYCOL 17 GM PACKET GTB SCH (08:25)
[2018-07-25] MEDS: SILVER SULFADIAZINE 1% 25 GM CR TOP SCH (08:25)
[2018-07-25] MEDS: ENOXAPARIN 30 MG/0.3 ML SYG SC SCH (09:14)
--- NOTE | 2018-07-25 09:50 | CONS ---
Assessment/Plan Assessment/Plan Assessment/Plan (Daily) Assessment/Plan Hospital Course (Demo Recall) 83 yo male with tongue cancer, s/p PEG 1. Dysphagia. 2. Cancer of the tongue and a lymph node, status post block dissection of the left side ,status post radiation and chemotherapy. 3. Diabetes mellitus. 4. Hypothyroidism. 5. Weight loss. 6. Status post PEG, patient is tolerating feeding. Plan Continue tf, goal of 50cc per dietary recommendation Per speech therapy, NPO except very small amount of ice chips qid. Dulcolax 10 mg MS x 1, miralax qd Speech therapist to assess patient in swallowing Physical therapy to strengthen his muscle Aspiration precaution Consultation Date/Type/Reason Admit Date/Time Jul 16, 2018 at 23:50 Initial Consult Date Date/Time of Note DATE: 07/25/18 TIME: 09:49 24 HR Interval Summary Constitutional: no complaints, improved Exam/Review of Systems Exam Vitals Vital Signs Date Temp Pulse Resp B/P (MAP) Pulse Ox O2 O2 Flow FiO2 Time Delivery Rate 07/25/18 Nasal 2.0 09:01 Cannula 07/25/18 93 08:56 07/25/18 88 08:00 07/25/18 97.6 17 111/61 07:34 (78) 07/21/18 28 23:51 Intake and Output 07/24/18 07/24/18 07/25/18 1515:00 23:00 07:00 IntakeIntake Total 200 ml 800 ml 800 ml OutputOutput Total 1300 ml 1000 ml BalanceBalance 200 ml -500 ml -200 ml Constitutional: alert, oriented, well developed Psych: no complaints, nl mood/affect Head: normocephalic, atraumatic Eyes: nl conjunctiva, EOMI, nl lids, nl sclera, PERRL ENMT: nl external ears & nose, nl lips & teeth, nl nasal mucosa & septum Neck: supple, non-tender Respiratory: clear to auscultation, normal air movement Cardiovascular: regular rate and rhythm, nl pulses Gastrointestinal: soft, nl liver, spleen, non-tender Musculoskeletal: nl extremities to inspection, nl gait and stance Extremities: normal pulses Neurological: FISH ROE PROCESSOR II-XII intact, nl mental status, nl speech, nl strength Skin: nl turgor; No rash or lesions Lymph: nl lymph nodes Results Result Diagram: 07/24/18 0555 07/24/18 0555 Results 24hrs Laboratory Tests Test 07/24/18 12:46 07/24/18 16:24 07/24/18 20:01 07/25/18 00:35 Bedside Glucose 200 186 201 152 Test 07/25/18 05:23 07/25/18 08:27 Bedside Glucose 210 197 Medications Medication Current Medications Acetaminophen (Tylenol Tab) 500 mg Q4H PRN PO MILD PAIN(1-3)OR ELEVATED TEMP Last administered on 07/24/18at 20:20; Admin Dose 500 MG; Start 07/17/18 at 04:00 Albuterol (Proventil 0.083% (Neb)) 2.5 mg Q4H RESP THERAPY PRN HHN SHORTNESS OF BREATH; Start 07/17/18 at 04:00 Morphine Sulfate (morphine) 4 mg Q4H PRN IV SEVERE PAIN LEVEL 7-10 Last administered on 07/24/18at 23:29; Admin Dose 4 MG; Start 07/17/18 at 04:00 Ondansetron HCl (Zofran Inj) 4 mg Q4H PRN IV NAUSEA AND/OR VOMITING Last administered on 07/22/18at 21:54; Admin Dose 4 MG; Start 07/17/18 at 04:00 Insulin Aspart (Novolog Insulin Pen) NOVOLOG *MODERATE* ALGORI... Q4 SC Last administered on 07/25/18at 09:14; Admin Dose 4 UNIT; Start 07/17/18 at 13:00 Miscellaneous Information 1 ea NOTE XX ; Start 07/17/18 at 17:30 Glucose (Glutose) 15 gm Q15M PRN PO DECREASED GLUCOSE; Start 07/17/18 at 17:30 Glucose (Glutose) 22.5 gm Q15M PRN PO DECREASED GLUCOSE; Start 07/17/18 at 17:30 Dextrose (D50w Syringe) 25 ml Q15M PRN IV DECREASED GLUCOSE; Start 07/17/18 at 17:30 Dextrose (D50w Syringe) 50 ml Q15M PRN IV DECREASED GLUCOSE; Start 07/17/18 at 17:30 Glucagon (Glucagen) 1 mg Q15M PRN IM DECREASED GLUCOSE; Start 07/17/18 at 17:30 Glucose (Glutose) 15 gm Q15M PRN BUCCAL DECREASED GLUCOSE; Start 07/17/18 at 17:30 Hydrogen Peroxide (Hydrogen Peroxide) 1 applic DAILY TOP Last administered on 07/25/18 08:25; Admin Dose 1 APPLIC; Start 07/18/18 at 14:30 Silver Sulfadiazine (Thermazene 1% 25 Gm) 1 applic DAILY TOP Last administered on 07/25/18 08:25; Admin Dose 1 APPLIC; Start 07/19/18 at 09:00 Fluconazole (Diflucan) 100 mg DAILY GTB Last administered on 07/25/18 08:24; Admin Dose 100 MG; Start 07/20/18 at 09:30 Enoxaparin Sodium (Lovenox) 30 mg DAILY SC Last administered on 07/25/18 09:14; Admin Dose 30 MG; Start 07/22/18 at 21:00 Amoxicillin/ Clavulanate Potassium (Augmentin) 875 mg BID GTB Last administered on 07/25/18 08:24; Admin Dose 875 MG; Start 07/22/18 at 09:00 Polyethylene Glycol (Miralax) 17 gm DAILY GTB Last administered on 07/23/18 08:12; Admin Dose 17 GM; Start 07/23/18 at 09:00 Insulin Glargine (Lantus) 15 units DAILY@2000 SC Last administered on 07/24/18 20:26; Admin Dose 15 UNITS; Start 07/24/18 at 20:00 JC NIELSON MD Jul 25, 2018 09:50
--- NOTE | 2018-07-25 10:36 | CONS ---
DATE OF ADMISSION: 07/16/2018 DATE OF CONSULTATION: 07/24/2018 FOLLOWUP: I saw the patient. I could not dictate it. An 83-year-old male with tongue cancer. Had a G-tube placement for his dysphagia. The patient is to lerating feeding. His only complaint is to remove the Jenkins catheter. OBJECTIVE: VITAL SIGNS: Stable. ABDOMEN: Benign. G-tube site is clean. He is tolerating feeding at 50 mL per hour. EXTREMITIES: No edema. 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 IMPRESSION: 1. Dysphagia, status post G-tube placement. 2. Tongue cancer and left side bloc dissection, status post radiation and chemo. 3. Cachexia. 4. Malnutrition. 5. Weakness. PLAN: At this point is to continue feeding. Speech therapy is to get involved to train the swallowi ng muscles. Physical therapy to strengthen his muscles. Continue present care. Dictated By: JC MALONEY/NTS Conf#: [id number] DID#: [id number] CC: DANNY GUEVARA MD;*EndCC*
[2018-07-25] MEDS: ESCITALOPRAM 10 MG TAB GTB SCH (16:52)
[2018-07-25] MEDS ORDERED: ACETAMINOPHEN 500 MG TAB PO PRN (17:00)
--- NOTE | 2018-07-25 18:41 | PN ---
DATE: 07/25/2018 SUBJECTIVE: The patient is more responsive today, complains of poor sleep. He has mild pain. OBJECTIVE: VITAL SIGNS: Temperature 98.0, blood pressure 103/55, O2 sat 96% on room air. CHEST: Clear anteriorly. HEART: S1, S2 with no definite gallops. EXTREMITIES: No edema. LABORATORY DATA: Blood glucose levels 210, 197, 214. IMPRESSION: 1. Dysphagia, status post percutaneous endoscopic gastrostomy placement. 2. Diabetes mellitus type 2, uncontrolled. 3. Right upper and right lower lobe pneumonia. 4. Status post left hemiglossectomy. 5. Status post left radical neck dissection for metastatic carcinoma. 6. Underlying mild depression. PLAN: We will start the patient on low-dose Lexapro 10 mg daily. We will plan to discontinue Jenkins in a.m. and consider acute rehabilitation unit consultation. Dictated By: DANNY GUEVARA MD, SR/MINI Conf#: [id number] DID#: [id number]
[2018-07-25] MEDS ORDERED: morphine 2 MG INJ IV PRN (20:00)
[2018-07-25] MEDS: INSULIN GLARGINE [LANTus] (100 UNITS/ML) SYG SC SCH (20:44)
[2018-07-26] VITALS (7 sets, daily range): BP systolic 92–121; BP diastolic 54–64; PULSE 71–76; RESP 17–19
[2018-07-26] MEDS: INSULIN ASPART [NOVOLOG] 3 ML PEN SC SCH ×5 (01:18→23:11)
--- NOTE | 2018-07-26 08:38 | CONS ---
Assessment/Plan Assessment/Plan Hospital Course (Demo Recall) 83 yo male with tongue cancer, s/p PEG 1. Dysphagia. 2. Cancer of the tongue and a lymph node, status post block dissection of the left side ,status post radiation and chemotherapy. 3. Diabetes mellitus. 4. Hypothyroidism. 5. Weight loss. 6. Status post PEG, patient is tolerating feeding. Plan Continue tube feeds Speech therapy to work with pt to strengthen swallow Physical therapy today Miralax prn Pt examined and plan of care discussed with Dr. Gleason Consultation Date/Type/Reason Admit Date/Time Jul 16, 2018 at 23:50 Initial Consult Date 07/19/18 Date/Time of Note DATE: 07/26/18 TIME: 08:36 24 HR Interval Summary Free Text/Dictation Tolerating tube feeds. Multiple large bm. Exam/Review of Systems Exam Vitals Vital Signs Date Temp Pulse Resp B/P (MAP) Pulse Ox O2 O2 Flow FiO2 Time Delivery Rate 07/26/18 Nasal 2.0 07:40 Cannula 07/26/18 98.0 76 18 121/64 96 07:27 (83) Intake and Output 07/25/18 07/25/18 07/26/18 1515:00 23:00 07:00 IntakeIntake Total 860 ml 800 ml OutputOutput Total 700 ml 800 ml BalanceBalance 160 ml 0 ml Constitutional: alert, oriented Head: normocephalic Eyes: nl sclera, PERRL Respiratory: normal air movement Cardiovascular: regular rate and rhythm Gastrointestinal: soft, non-tender, bowel sounds Musculoskeletal: muscle weakness Neurological: nl mental status Results Result Diagram: 07/24/18 0555 07/24/18 0555 Results 24hrs Laboratory Tests Test 07/25/18 12:21 07/25/18 16:51 07/25/18 20:28 07/26/18 01:05 Bedside Glucose 214 196 172 208 Test 07/26/18 04:58 Bedside Glucose 171 Medications Medication Current Medications Albuterol (Proventil 0.083% (Neb)) 2.5 mg Q4H RESP THERAPY PRN HHN SHORTNESS OF BREATH; Start 07/17/18 at 04:00 Ondansetron HCl (Zofran Inj) 4 mg Q4H PRN IV NAUSEA AND/OR VOMITING Last ad ministered on 07/22/18at 21:54; Admin Dose 4 MG; Start 07/17/18 at 04:00 Insulin Aspart (Novolog Insulin Pen) NOVOLOG *MODERATE* ALGORI... Q4 SC Last administered on 07/26/18at 05:07; Admin Dose 2 UNIT; Start 07/17/18 at 13:00 Miscellaneous Information 1 ea NOTE XX ; Start 07/17/18 at 17:30 Glucose (Glutose) 15 gm Q15M PRN PO DECREASED GLUCOSE; Start 07/17/18 at 17:30 Glucose (Glutose) 22.5 gm Q15M PRN PO DECREASED GLUCOSE; Start 07/17/18 at 17:30 Dextrose (D50w Syringe) 25 ml Q15M PRN IV DECREASED GLUCOSE; Start 07/17/18 at 17:30 Dextrose (D50w Syringe) 50 ml Q15M PRN IV DECREASED GLUCOSE; Start 07/17/18 at 17:30 Glucagon (Glucagen) 1 mg Q15M PRN IM DECREASED GLUCOSE; Start 07/17/18 at 17:30 Glucose (Glutose) 15 gm Q15M PRN BUCCAL DECREASED GLUCOSE; Start 07/17/18 at 17:30 Hydrogen Peroxide (Hydrogen Peroxide) 1 applic DAILY TOP Last administered on 07/25/18at 08:25; Admin Dose 1 APPLIC; Start 07/18/18 at 14:30 Silver Sulfadiazine (Thermazene 1% 25 Gm) 1 applic DAILY TOP Last administered on 07/25/18at 08:25; Admin Dose 1 APPLIC; Start 07/19/18 at 09:00 Fluconazole (Diflucan) 100 mg DAILY GTB Last administered on 07/25/18at 08:24; Admin Dose 100 MG; Start 07/20/18 at 09:30 Enoxaparin Sodium (Lovenox) 30 mg DAILY SC Last administered on 07/25/18at 09:14; Admin Dose 30 MG; Start 07/22/18 at 21:00 Amoxicillin/ Clavulanate Potassium (Augmentin) 875 mg BID GTB Last administered on 07/25/18at 20:32; Admin Dose 875 MG; Start 07/22/18 at 09:00 Polyethylene Glycol (Miralax) 17 gm DAILY GTB Last administered on 07/23/18at 08:12; Admin Dose 17 GM; Start 07/23/18 at 09:00 Morphine Sulfate (morphine) 2 mg Q4H PRN IV SEVERE PAIN LEVEL 7-10 Last administered on 07/25/18at 23:09; Admin Dose 2 MG; Start 07/25/18 at 20:00 Escitalopram Oxalate (Lexapro) 10 mg DAILY GTB Last administered on 07/25/18at 16:52; Admin Dose 10 MG; Start 07/25/18 at 16:30 Acetaminophen (Tylenol Tab) 500 mg Q4H PRN PO MILD PAIN(1-3)OR ELEVATED TEMP; Start 07/25/18 at 17:00 Insulin Glargine (Lantus) 17 units DAILY@2000 SC Last administered on 07/25/18at 20:44; Admin Dose 17 UNITS; Start 07/25/18 at 20:00 ALVAREZ NGUYEN Jul 26, 2018 08:38
[2018-07-26] MEDS: AMOXICILLIN/CLAV 875 MG TAB GTB SCH ×2 (08:42→20:48)
[2018-07-26] MEDS: FLUCONAZOLE 100 MG TAB GTB SCH (08:42)
[2018-07-26] MEDS: ESCITALOPRAM 10 MG TAB GTB SCH (08:42)
[2018-07-26] MEDS: ENOXAPARIN 30 MG/0.3 ML SYG SC SCH (08:55)
[2018-07-26] MEDS: SILVER SULFADIAZINE 1% 25 GM CR TOP SCH (08:59)
[2018-07-26] MEDS: HYDROGEN PEROXIDE 118 ML TOP SCH (08:59)
[2018-07-26] MEDS ORDERED: POLYETHYLENE GLYCOL 17 GM PACKET GTB PRN (09:00)
--- NOTE | 2018-07-26 09:17 | PN ---
DATE: 07/26/2018 SUBJECTIVE: The patient is more awake and responsive. OBJECTIVE: VITAL SIGNS: Temperature 98.0, blood pressure 121/64, O2 sat 96% on 2 liters nasal cannula. CHEST: Few rhonchi at the bases. HEART: S1, S2 with no definite gallops. EXTREMITIES: No edema. LABORATORY DATA: Blood glucose levels are stabilizing. IMPRESSION: 1. Dysphagia, status post percutaneous endoscopic gastrostomy placement. 2. Diabetes mellitus type 2, better controlled. 3. Right upper and right lower lobe pneumonia. 4. Status post left hemiglossectomy and left radical neck dissection for metastatic carcinoma. 5. Underlying mild depression, started on Lexapro. PLAN: We will discontinue Jenkins today. Transfer the patient to med/surg and request acute rehabilit ation unit consultation. Dictated By: DANNY GUEVARA MD SR/NTS Conf#: [id number] DID#: [id number] CC: DANNY GUEVARA MD;*EndCC*
--- NOTE | 2018-07-26 18:41 | QN ---
Documentation Comment Pt is resting quietly. I spoke with and reviewed Dr. Ruiz's notes. I agree fully with the G tube feedings and with Acute Rehab placement. JOVAN PEREA MD Jul 26, 2018 18:41
[2018-07-26] MEDS: INSULIN GLARGINE [LANTus] (100 UNITS/ML) SYG SC SCH (20:49)
[2018-07-27 03:32] VITALS: BP 106/55; PULSE 75; RESP 18
[2018-07-27] MEDS: INSULIN ASPART [NOVOLOG] 3 ML PEN SC SCH ×3 (06:19→22:22)
[2018-07-27 07:38] VITALS: BP 116/56; PULSE 77; RESP 18
--- NOTE | 2018-07-27 08:07 | CONS ---
Assessment/Plan Assessment/Plan Hospital Course (Demo Recall) 83 yo male with tongue cancer, s/p PEG 1. Dysphagia. 2. Cancer of the tongue and a lymph node, status post block dissection of the left side ,status post radiation and chemotherapy. 3. Diabetes mellitus. 4. Hypothyroidism. 5. Weight loss. 6. Status post PEG, patient is tolerating feeding. Plan Plan for barium swallow today to evaluate swallow function to determine which type of PO trials will benefit pt Pt to be evaluated for acute rehab today Pt examined and plan of care discussed with Dr. Gleason Consultation Date/Type/Reason Admit Date/Time Jul 16, 2018 at 23:50 Initial Consult Date 07/19/18 Date/Time of Note DATE: 07/27/18 TIME: 08:03 24 HR Interval Summary Free Text/Dictation no acute changes Exam/Review of Systems Exam Vitals Vital Signs Date Temp Pulse Resp B/P (MAP) Pulse Ox O2 O2 Flow FiO2 Time Delivery Rate 07/27/18 97.2 77 18 116/56 98 07:38 (76) 07/26/18 Nasal 2.0 21:00 Cannula Intake and Output 07/26/18 07/26/18 07/27/18 1515:00 23:00 07:00 IntakeIntake Total 350 ml OutputOutput Total 150 ml 200 ml BalanceBalance -150 ml 150 ml Constitutional: alert, oriented Psych: no complaints Head: normocephalic Eyes: PERRL Respiratory: normal air movement Cardiovascular: regular rate and rhythm Gastrointestinal: soft, non-tender, bowel sounds Neurological: nl mental status Results Result Diagram: 07/24/18 0555 07/24/18 0555 Results 24hrs Laboratory Tests Test 07/26/18 08:40 07/26/18 14:04 07/26/18 20:45 07/26/18 22:28 Bedside Glucose 199 206 249 H 261 H Test 07/27/18 06:16 Bedside Glucose 229 H Medications Medication Current Medications Albuterol (Proventil 0.083% (Neb)) 2.5 mg Q4H RESP THERAPY PRN HHN SHORTNESS OF BREATH; Start 07/17/18 at 04:00 Ondansetron HCl (Zofran Inj) 4 mg Q4H PRN IV NAUSEA AND/OR VOMITING Last admini stered on 07/22/18at 21:54; Admin Dose 4 MG; Start 07/17/18 at 04:00 Miscellaneous Information 1 ea NOTE XX ; Start 07/17/18 at 17:30 Glucose (Glutose) 15 gm Q15M PRN PO DECREASED GLUCOSE; Start 07/17/18 at 17:30 Glucose (Glutose) 22.5 gm Q15M PRN PO DECREASED GLUCOSE; Start 07/17/18 at 17:30 Dextrose (D50w Syringe) 25 ml Q15M PRN IV DECREASED GLUCOSE; Start 07/17/18 at 17:30 Dextrose (D50w Syringe) 50 ml Q15M PRN IV DECREASED GLUCOSE; Start 07/17/18 at 17:30 Glucagon (Glucagen) 1 mg Q15M PRN IM DECREASED GLUCOSE; Start 07/17/18 at 17:30 Glucose (Glutose) 15 gm Q15M PRN BUCCAL DECREASED GLUCOSE; Start 07/17/18 at 17:30 Hydrogen Peroxide (Hydrogen Peroxide) 1 applic DAILY TOP Last administered on 07/26/18at 08:59; Admin Dose 1 APPLIC; Start 07/18/18 at 14:30 Silver Sulfadiazine (Thermazene 1% 25 Gm) 1 applic DAILY TOP Last administered on 07/26/18at 08:59; Admin Dose 1 APPLIC; Start 07/19/18 at 09:00 Fluconazole (Diflucan) 100 mg DAILY GTB Last administered on 07/26/18at 08:42; Admin Dose 100 MG; Start 07/20/18 at 09:30 Enoxaparin Sodium (Lovenox) 30 mg DAILY SC Last administered on 07/26/18at 08:55; Admin Dose 30 MG; Start 07/22/18 at 21:00 Amoxicillin/ Clavulanate Potassium (Augmentin) 875 mg BID GTB Last administered on 07/26/18at 20:48; Admin Dose 875 MG; Start 07/22/18 at 09:00 Morphine Sulfate (morphine) 2 mg Q4H PRN IV SEVERE PAIN LEVEL 7-10 Last administered on 07/25/18at 23:09; Admin Dose 2 MG; Start 07/25/18 at 20:00 Escitalopram Oxalate (Lexapro) 10 mg DAILY GTB Last administered on 07/26/18at 08:42; Admin Dose 10 MG; Start 07/25/18 at 16:30 Acetaminophen (Tylenol Tab) 500 mg Q4H PRN PO MILD PAIN(1-3)OR ELEVATED TEMP; Start 07/25/18 at 17:00 Insulin Glargine (Lantus) 17 units DAILY@2000 SC Last administered on 07/26/18at 20:49; Admin Dose 17 UNITS; Start 07/25/18 at 20:00 Polyethylene Glycol (Miralax) 17 gm DAILY PRN GTB for constipation; Start 07/26/18 at 09:00 Insulin Aspart (Novolog Insulin Pen) NOVOLOG *MODERATE* ALGORI... Q8 SC Last administered on 07/27/18at 06:19; Admin Dose 6 UNIT; Start 07/26/18 at 14:00 ALVAREZ NGUYEN Jul 27, 2018 08:07
[2018-07-27] MEDS: AMOXICILLIN/CLAV 875 MG TAB GTB SCH ×2 (08:29→20:28)
[2018-07-27] MEDS: ESCITALOPRAM 10 MG TAB GTB SCH (08:29)
[2018-07-27] MEDS: FLUCONAZOLE 100 MG TAB GTB SCH (08:29)
[2018-07-27] MEDS: ENOXAPARIN 30 MG/0.3 ML SYG SC SCH (08:31)
[2018-07-27] MEDS: SILVER SULFADIAZINE 1% 25 GM CR TOP SCH (08:39)
[2018-07-27] MEDS: HYDROGEN PEROXIDE 118 ML TOP SCH ×2 (08:39→11:41)
[2018-07-27 14:08] VITALS: BP 102/55; PULSE 75; RESP 16
--- NOTE | 2018-07-27 18:24 | QN ---
Documentation Comment Chart reviewed. Barium swallow done and evidence of aspiration was noted. Continue gastric feedings as being done. No new suggestions now. JOVAN PEREA MD Jul 27, 2018 18:24
[2018-07-27 20:00] VITALS: BP 115/58; PULSE 73; RESP 18
[2018-07-27] MEDS ORDERED: INSULIN GLARGINE [LANTus] (100 UNITS/ML) SYG SC SCH (20:00)
--- NOTE | 2018-07-27 21:23 | PN ---
DATE: 07/27/2018 SUBJECTIVE: The patient is more awake and responsive. Speech therapy in progress. Patient getting of video swallow. PHYSICAL EXAMINATION: VITAL SIGNS: Temperature 97.2, blood pressure 116/56, O2 saturation 98% on 2 liters nasal cannula. HEENT: Mild pallor without cyanosis. Tongue is moist. NECK: Supple. No thyromegaly, bruits or lymphadenopathy. LUNGS: Clinically clear anteriorly. HEART: S1, S2 heard, no murmurs or gallops. EXTREMITIES: No edema. Wasting of the lower extremities evident. LABORATORY DATA: Blood glucose level is over 200 today. IMPRESSION: 1. Right upper and right lower lobe pneumonia. 2. Status post left hemiglossectomy, left radical neck dissection for metastatic disease. 3. Underlying major depression. 4. Diabetes mellitus type 2, not adequately controlled. 5. Dysphagia, status post percutaneous endoscopic gastrostomy placement. PLAN: We will increase the dose of Lantus, recheck labs in a.m. Acute rehabilitation unit consultat ion in progress. Dictated By: DANNY GUEVARA MD SR/NTS Conf#: [id number] DID#: [id number] CC: DANNY GUEVARA MD;*EndCC*
[2018-07-28 02:00] VITALS: BP 113/58; PULSE 75; RESP 18
[2018-07-28] MEDS: INSULIN ASPART [NOVOLOG] 3 ML PEN SC SCH ×3 (05:56→21:52)
[2018-07-28 07:45] VITALS: BP 115/59; PULSE 71; RESP 16
[2018-07-28] MEDS: AMOXICILLIN/CLAV 875 MG TAB GTB SCH ×2 (08:26→21:14)
[2018-07-28] MEDS: ENOXAPARIN 30 MG/0.3 ML SYG SC SCH (08:26)
[2018-07-28] MEDS: ESCITALOPRAM 10 MG TAB GTB SCH (08:26)
[2018-07-28] MEDS: HYDROGEN PEROXIDE 118 ML TOP SCH (08:34)
[2018-07-28] MEDS: SILVER SULFADIAZINE 1% 25 GM CR TOP SCH (08:34)
[2018-07-28] MEDS: NYSTATIN 15 GM CR TOP SCH ×3 (09:37→21:15)
[2018-07-28 14:25] VITALS: BP 109/60; PULSE 70; RESP 18
--- NOTE | 2018-07-28 16:39 | CONS ---
Assessment/Plan Assessment/Plan Assessment/Plan (Daily) Assessment/Plan Assessment/Plan Hospital Course (Demo Recall) 83 yo male with tongue cancer, s/p PEG 1. Dysphagia. 2. Cancer of the tongue and a lymph node, status post block dissection of the left side ,status post radiation and chemotherapy. 3. Diabetes mellitus. 4. Hypothyroidism. 5. Weight loss. 6. Status post PEG, patient is tolerating feeding. Plan Plan for barium swallow today to evaluate swallow function to determine which type of PO trials will benefit pt Pt to be evaluated for acute rehab today Patient aspirated on the modified barium swallow study Continue dysphagia therapy and physical therapy Consultation Date/Type/Reason Admit Date/Time Jul 16, 2018 at 23:50 Initial Consult Date Date/Time of Note DATE: 07/28/18 TIME: 16:38 24 HR Interval Summary Constitutional: no complaints, improved Exam/Review of Systems Exam Vitals Vital Signs Date Temp Pulse Resp B/P (MAP) Pulse Ox O2 O2 Flow FiO2 Time Delivery Rate 07/28/18 97.8 70 18 109/60 97 14:25 (76) 07/27/18 Nasal 2 10:14 Cannula Intake and Output 07/27/18 07/27/18 07/28/18 1515:00 23:00 07:00 IntakeIntake Total 700 ml OutputOutput Total 380 ml BalanceBalance 700 ml -380 ml Constitutional: alert, oriented, well developed Psych: no complaints, nl mood/affect Head: normocephalic, atraumatic Eyes: nl conjunctiva, EOMI, nl lids, nl sclera, PERRL ENMT: nl external ears & nose, nl lips & teeth, nl nasal mucosa & septum Neck: supple, non-tender Respiratory: clear to auscultation, normal air movement Cardiovascular: regular rate and rhythm, nl pulses Gastrointestinal: soft, nl liver, spleen, non-tender Musculoskeletal: nl extremities to inspection, nl gait and stance Extremities: normal pulses Neurological: RADAR TESTER II-XII intact, nl mental status, nl speech, nl strength Skin: nl turgor; No rash or lesions Lymph: nl lymph nodes Results Result Diagram: 07/28/18 0620 07/28/18 0620 Results 24hrs Laboratory Tests Test 07/27/18 20:20 07/27/18 22:19 07/28/18 05:53 07/28/18 06:20 Bedside Glucose 237 H 272 H 214 White Blood Count 6.1 Red Blood Count 3.48 L Hemoglobin 10.8 L Hematocrit 32.9 L Mean Corpuscular 94.5 Volume Mean Corpuscular 31.0 Hemoglobin Mean Corpuscular 32.8 Hemoglobin Concent Red Cell 13.2 Distribution Width Platelet Count 363 # Mean Platelet Volume 9.2 Immature 1.600 H Granulocytes % Neutrophils % Segmented 60 Neutrophils % (Manual) Band Neutrophils % 9 H (Manual) Lymphocytes % Lymphocytes % 10 L (Manual) Monocytes % Monocytes % (Manual) 13 H Eosinophils % Eosinophils % 8 H (Manual) Basophils % Nucleated Red Blood 0.0 Cells % Immature 0.100 H Granulocytes # Neutrophils # Neutrophils # 3.7 (Manual) Band Neutrophils # 0.5 Lymphocytes (Manual) 0.6 L Lymphocytes # Monocytes # Monocytes # (Manual) 0.7 Eosinophils # Basophils # Nucleated Red Blood Cells # Platelet Estimate NORMAL Sodium Level 134 L Potassium Level 3.9 Chloride Level 98 Carbon Dioxide Level 28 Anion Gap 8 Blood Urea Nitrogen 28 H Creatinine 0.80 Est Glomerular Filtrat Rate mL/min Glucose Level 209 Calcium Level 9.1 Test 07/28/18 13:13 Bedside Glucose 249 H Medications Medication Current Medications Albuterol (Proventil 0.083% (Neb)) 2.5 mg Q4H RESP THERAPY PRN HHN SHORTNESS OF BREATH; Start 07/17/18 at 04:00 Ondansetron HCl (Zofran Inj) 4 mg Q4H PRN IV NAUSEA AND/OR VOMITING Last administered on 07/22/18at 21:54; Admin Dose 4 MG; Start 07/17/18 at 04:00 Miscellaneous Information 1 ea NOTE XX ; Start 07/17/18 at 17:30 Glucose (Glutose) 15 gm Q15M PRN PO DECREASED GLUCOSE; Start 07/17/18 at 17:30 Glucose (Glutose) 22.5 gm Q15M PRN PO DECREASED GLUCOSE; Start 07/17/18 at 17:30 Dextrose (D50w Syringe) 25 ml Q15M PRN IV DECREASED GLUCOSE; Start 07/17/18 at 17:30 Dextrose (D50w Syringe) 50 ml Q15M PRN IV DECREASED GLUCOSE; Start 07/17/18 at 17:30 Glucagon (Glucagen) 1 mg Q15M PRN IM DECREASED GLUCOSE; Start 07/17/18 at 17:30 Glucose (Glutose) 15 gm Q15M PRN BUCCAL DECREASED GLUCOSE; Start 07/17/18 at 17:30 Silver Sulfadiazine (Thermazene 1% 25 Gm) 1 applic DAILY TOP Last administered on 07/28/18 08:34; Admin Dose 1 APPLIC; Start 07/19/18 at 09:00 Enoxaparin Sodium (Lovenox) 30 mg DAILY SC Last administered on 07/28/18 08:26; Admin Dose 30 MG; Start 07/22/18 at 21:00 Amoxicillin/ Clavulanate Potassium (Augmentin) 875 mg BID GTB Last administered on 07/28/18 08:26; Admin Dose 875 MG; Start 07/22/18 at 09:00 Morphine Sulfate (morphine) 2 mg Q4H PRN IV SEVERE PAIN LEVEL 7-10 Last administered on 07/25/18 23:09; Admin Dose 2 MG; Start 07/25/18 at 20:00 Escitalopram Oxalate (Lexapro) 10 mg DAILY GTB Last administered on 07/28/18 08:26; Admin Dose 10 MG; Start 07/25/18 at 16:30 Acetaminophen (Tylenol Tab) 500 mg Q4H PRN PO MILD PAIN(1-3)OR ELEVATED TEMP Last administered on 07/27/18 12:49; Admin Dose 500 MG; Start 07/25/18 at 17:00 Polyethylene Glycol (Miralax) 17 gm DAILY PRN GTB for constipation; Start 07/26/18 at 09:00 Insulin Aspart (Novolog Insulin Pen) NOVOLOG *MODERATE* ALGORI... Q8 SC Last administered on 07/28/18 13:18; Admin Dose 6 UNIT; Start 07/26/18 at 14:00 Hydrogen Peroxide (Hydrogen Peroxide) 1 applic DAILY TOP Last administered on 07/28/18 08:34; Admin Dose 1 APPLIC; Start 07/27/18 at 08:55 Nystatin (Nystatin Cr) 1 applic TID TOP Last administered on 07/28/18 13:15; Admin Dose 1 APPLIC; Start 07/28/18 at 09:00 Insulin Glargine (Lantus) 22 units DAILY@2000 SC ; Start 07/28/18 at 20:00 JC NIELSON MD Jul 28, 2018 16:39
--- NOTE | 2018-07-28 17:24 | QN ---
Documentation Comment Pt continues on gastric feedings. Dr. Ruiz's note reviewed. Awaiting transfer to Acute Rehab. No new suggestions. JOVAN PEREA MD Jul 28, 2018 17:24
[2018-07-28] MEDS: ONDANSETRON 4 MG INJ IV PRN (18:09)
[2018-07-28 20:00] VITALS: BP 109/66; PULSE 74; RESP 18
[2018-07-28] MEDS ORDERED: INSULIN GLARGINE [LANTus] (100 UNITS/ML) SYG SC SCH (20:00)
[2018-07-29 02:00] VITALS: BP 111/71; PULSE 66; RESP 18
[2018-07-29] MEDS: INSULIN ASPART [NOVOLOG] 3 ML PEN SC SCH ×2 (05:47→14:22)
[2018-07-29 08:20] VITALS: BP 123/63; PULSE 72; RESP 17
--- NOTE | 2018-07-29 08:59 | PN ---
DATE: 07/28/2018 SUBJECTIVE: The patient vomited x1 and the vomitus was yellow. The stomach contents, namely the G-t ube feeding. Denies any shortness of breath, has got a mild cough. VITAL SIGNS: Temperature 97.8, blood pressure 109/60, O2 sat is 97% on 2 liters nasal cannula. CHEST: Revealed occasional rhonchi. HEART: S1, S2 heard, no definite gallops. EXTREMITIES: No edema. Wasting of lower extremities. LABORATORY DATA: WBC count 6.1, hematocrit 32.9. Sodium 134, potassium 3.9, BUN 28, creatinine 0.8, glucose levels since morning 214, 209 and 249 today. IMPRESSION: 1. Right upper and right lower lobe pneumonia. 2. The patient presented with a metabolic encephalopathy with severe hyperglycemia and infection and has , presently is mildly depressed, tolerating Lexapro. 3. Status post left hemiglossectomy, left radical neck dissection for metastatic disease. 4. Dysphagia status post gastrostomy placement. The video swallow was performed which shows positiv e for aspiration. PLAN: We will continue G-tube feedings. The patient is quite weak and progressing slowly with physi luciano therapy. The rehab consultation in progress. Continue present treatment. Dictated By: DANNY GUEVARA MD, SR/MINI Conf#: [id number] DID#: [id number]
[2018-07-29] MEDS: AMOXICILLIN/CLAV 875 MG TAB GTB SCH (10:44)
[2018-07-29] MEDS: ESCITALOPRAM 10 MG TAB GTB SCH (10:44)
[2018-07-29] MEDS: ENOXAPARIN 30 MG/0.3 ML SYG SC SCH (10:45)
[2018-07-29] MEDS: SILVER SULFADIAZINE 1% 25 GM CR TOP SCH (10:46)
[2018-07-29] MEDS: HYDROGEN PEROXIDE 118 ML TOP SCH (10:46)
[2018-07-29] MEDS: NYSTATIN 15 GM CR TOP SCH ×2 (10:46→14:15)
[2018-07-29 14:00] VITALS: BP 105/57; PULSE 75; RESP 18
--- NOTE | 2018-07-29 15:19 | PN ---
Date/Time of Note Date/Time of Note DATE: 07/29/18 TIME: 15:16 Assessment/Plan VTE Prophylaxis Risk score (from Ns)>0 risk: 10 SCD applied (from Nsg): Yes Pharmacological prophylaxis: LMWH Lines/Catheters IV Catheter Type (from Nrsg): Saline Lock Urinary Cath still in place: No Assessment/Plan Assessment/Plan Pt is stable and gastric feedings continue. says that she expects him to move to Acute Rehab later today. Hopefully that is true since he will need Rehab to regain his ability to ambulate. No new suggestions otherwise. Result Diagram: 07/28/1861907/28/18619 Results 24hrs Laboratory Tests Test 07/28/18 21:11 07/28/18 21:48 07/29/18 05:44 07/29/18 14:18 Bedside Glucose 260 H 247 H 152 267 H Subjective 24 Hr Interval Summary Free Text/Dictation Pt is resting but says that he walked a few steps and sat in a chair earlier today. Exam/Review of Systems Exam Vitals Vital Signs Date Temp Pulse Resp B/P (MAP) Pulse Ox O2 O2 Flow FiO2 Time Delivery Rate 07/29/18 97.6 75 18 105/57 98 Room Air 14:00 (73) 07/29/18 2.0 08:20 Intake and Output 07/28/18 07/28/18 07/29/18 1515:00 23:00 07:00 IntakeIntake Total 800 ml 700 ml 800 ml BalanceBalance 800 ml 700 ml 800 ml Head: other (bitemporal muscle wasting) Eyes: other (mild pallor) Neck: other (RT changes) Respiratory: clear to auscultation Cardiovascular: regular rate and rhythm Gastrointestinal: soft, non-tender Results Results 24hrs Laboratory Tests Test 07/28/18 21:11 07/28/18 21:48 07/29/18 05:44 07/29/18 14:18 Bedside Glucose 260 H 247 H 152 267 H Medications Medication Current Medications Albuterol (Proventil 0.083% (Neb)) 2.5 mg Q4H RESP THERAPY PRN HHN SHORTNESS OF BREATH; Start 07/17/18 at 04:00 Ondansetron HCl (Zofran Inj) 4 mg Q4H PRN IV NAUSEA AND/OR VOMITING Last administered on 07/28/18 18:09; Admin Dose 4 MG; Start 07/17/18 at 04:00 Miscellaneous Information 1 ea NOTE XX ; Start 07/17/18 at 17:30 Glucose (Glutose) 15 gm Q15M PRN PO DECREASED GLUCOSE; Start 07/17/18 at 17:30 Glucose (Glutose) 22.5 gm Q15M PRN PO DECREASED GLUCOSE; Start 07/17/18 at 17:30 Dextrose (D50w Syringe) 25 ml Q15M PRN IV DECREASED GLUCOSE; Start 07/17/18 at 17:30 Dextrose (D50w Syringe) 50 ml Q15M PRN IV DECREASED GLUCOSE; Start 07/17/18 at 17:30 Glucagon (Glucagen) 1 mg Q15M PRN IM DECREASED GLUCOSE; Start 07/17/18 at 17:30 Glucose (Glutose) 15 gm Q15M PRN BUCCAL DECREASED GLUCOSE; Start 07/17/18 at 17:30 Silver Sulfadiazine (Thermazene 1% 25 Gm) 1 applic DAILY TOP Last administered on 07/29/18at 10:46; Admin Dose 1 APPLIC; Start 07/19/18 at 09:00 Enoxaparin Sodium (Lovenox) 30 mg DAILY SC Last administered on 07/29/18at 10:45; Admin Dose 30 MG; Start 07/22/18 at 21:00 Amoxicillin/ Clavulanate Potassium (Augmentin) 875 mg BID GTB Last administered on 07/29/18 10:44; Admin Dose 875 MG; Start 07/22/18 at 09:00 Morphine Sulfate (morphine) 2 mg Q4H PRN IV SEVERE PAIN LEVEL 7-10 Last administered on 07/25/18at 23:09; Admin Dose 2 MG; Start 07/25/18 at 20:00 Escitalopram Oxalate (Lexapro) 10 mg DAILY GTB Last administered on 07/29/18at 10:44; Admin Dose 10 MG; Start 07/25/18 at 16:30 Acetaminophen (Tylenol Tab) 500 mg Q4H PRN PO MILD PAIN(1-3)OR ELEVATED TEMP Last administered on 07/27/18at 12:49; Admin Dose 500 MG; Start 07/25/18 at 17:00 Polyethylene Glycol (Miralax) 17 gm DAILY PRN GTB for constipation; Start 07/26/18 at 09:00 Insulin Aspart (Novolog Insulin Pen) NOVOLOG *MODERATE* ALGORI... Q8 SC Last administered on 07/29/18 14:22; Admin Dose 8 UNIT; Start 07/26/18 at 14:00 Hydrogen Peroxide (Hydrogen Peroxide) 1 applic DAILY TOP Last administered on 07/29/18at 10:46; Admin Dose 1 APPLIC; Start 07/27/18 at 08:55 Nystatin (Nystatin Cr) 1 applic TID TOP Last administered on 07/29/18 14:15; Admin Dose 1 APPLIC; Start 07/28/18 at 09:00 Insulin Glargine (Lantus) 22 units DAILY@2000 SC Last administered on 07/28/18 21:15; Admin Dose 22 UNITS; Start 07/28/18 at 20:00 JOVAN PEREA MD Jul 29, 2018 15:19
--- NOTE | 2018-07-29 18:34 | CONS ---
Assessment/Plan Assessment/Plan Assessment/Plan (Daily) Assessment/Plan (Daily) Assessment/Plan Assessment/Plan Hospital Course (Demo Recall) 83 yo male with tongue cancer, s/p PEG 1. Dysphagia. 2. Cancer of the tongue and a lymph node, status post block dissection of the left side ,status post radiation and chemotherapy. 3. Diabetes mellitus. 4. Hypothyroidism. 5. Weight loss. 6. Status post PEG, patient is tolerating feeding. Plan Plan for barium swallow today to evaluate swallow function to determine which type of PO trials will benefit pt Pt to be evaluated for acute rehab today Patient aspirated on the modified barium swallow study Continue dysphagia therapy and physical therapy We will increase the feeding to 65 cc/h Dietary consultation Consultation Date/Type/Reason Admit Date/Time Jul 16, 2018 at 23:50 Initial Consult Date Date/Time of Note DATE: 07/29/18 TIME: 18:33 24 HR Interval Summary Free Text/Dictation As per patient is not gaining weight No other issues Exam/Review of Systems Exam Vitals Vital Signs Date Temp Pulse Resp B/P (MAP) Pulse Ox O2 O2 Flow FiO2 Time Delivery Rate 07/29/18 97.6 75 18 105/57 98 Room Air 14:00 (73) 07/29/18 2.0 08:20 Intake and Output 07/28/18 07/28/18 07/29/18 1515:00 23:00 07:00 IntakeIntake Total 800 ml 700 ml 800 ml BalanceBalance 800 ml 700 ml 800 ml Constitutional: alert, oriented, well developed Psych: no complaints, nl mood/affect Head: normocephalic, atraumatic Eyes: nl conjunctiva, EOMI, nl lids, nl sclera, PERRL ENMT: nl external ears & nose, nl lips & teeth, nl nasal mucosa & septum Neck: supple, non-tender Respiratory: clear to auscultation, normal air movement Cardiovascular: regular rate and rhythm, nl pulses Gastrointestinal: soft, nl liver, spleen, non-tender Musculoskeletal: nl extremities to inspection, nl gait and stance Extremities: normal pulses Neurological: SECURITY SYSTEMS TECHNICIAN II-XII intact, nl mental status, nl speech, nl strength Skin: nl turgor; No rash or lesions Lymph: nl lymph nodes Results Result Diagram: 07/28/1861907/28/18 06 Results 24hrs Laboratory Tests Test 07/28/18 21:11 07/28/18 21:48 07/29/18 05:44 07/29/18 14:18 Bedside Glucose 260 H 247 H 152 267 H Medications Medication Current Medications Albuterol (Proventil 0.083% (Neb)) 2.5 mg Q4H RESP THERAPY PRN HHN SHORTNESS OF BREATH; Start 07/17/18 at 04:00 Ondansetron HCl (Zofran Inj) 4 mg Q4H PRN IV NAUSEA AND/OR VOMITING Last administered on 07/28/18at 18:09; Admin Dose 4 MG; Start 07/17/18 at 04:00 Miscellaneous Information 1 ea NOTE XX ; Start 07/17/18 at 17:30 Glucose (Glutose) 15 gm Q15M PRN PO DECREASED GLUCOSE; Start 07/17/18 at 17:30 Glucose (Glutose) 22.5 gm Q15M PRN PO DECREASED GLUCOSE; Start 07/17/18 at 17:30 Dextrose (D50w Syringe) 25 ml Q15M PRN IV DECREASED GLUCOSE; Start 07/17/18 at 17:30 Dextrose (D50w Syringe) 50 ml Q15M PRN IV DECREASED GLUCOSE; Start 07/17/18 at 17:30 Glucagon (Glucagen) 1 mg Q15M PRN IM DECREASED GLUCOSE; Start 07/17/18 at 17:30 Glucose (Glutose) 15 gm Q15M PRN BUCCAL DECREASED GLUCOSE; Start 07/17/18 at 17:30 Silver Sulfadiazine (Thermazene 1% 25 Gm) 1 applic DAILY TOP Last administered on 07/29/18at 10:46; Admin Dose 1 APPLIC; Start 07/19/18 at 09:00 Enoxaparin Sodium (Lovenox) 30 mg DAILY SC Last administered on 07/29/18at 10:45; Admin Dose 30 MG; Start 07/22/18 at 21:00 Amoxicillin/ Clavulanate Potassium (Augmentin) 875 mg BID GTB Last administered on 07/29/18at 10:44; Admin Dose 875 MG; Start 07/22/18 at 09:00 Morphine Sulfate (morphine) 2 mg Q4H PRN IV SEVERE PAIN LEVEL 7-10 Last administered on 07/25/18at 23:09; Admin Dose 2 MG; Start 07/25/18 at 20:00 Escitalopram Oxalate (Lexapro) 10 mg DAILY GTB Last administered on 07/29/18 10:44; Admin Dose 10 MG; Start 07/25/18 at 16:30 Acetaminophen (Tylenol Tab) 500 mg Q4H PRN PO MILD PAIN(1-3)OR ELEVATED TEMP Last administered on 07/27/18 12:49; Admin Dose 500 MG; Start 07/25/18 at 17:00 Polyethylene Glycol (Miralax) 17 gm DAILY PRN GTB for constipation; Start 07/26/18 at 09:00 Insulin Aspart (Novolog Insulin Pen) NOVOLOG *MODERATE* ALGORI... Q8 SC Last administered on 07/29/18 14:22; Admin Dose 8 UNIT; Start 07/26/18 at 14:00 Hydrogen Peroxide (Hydrogen Peroxide) 1 applic DAILY TOP Last administered on 07/29/18 10:46; Admin Dose 1 APPLIC; Start 07/27/18 at 08:55 Nystatin (Nystatin Cr) 1 applic TID TOP Last administered on 07/29/18 14:15; Admin Dose 1 APPLIC; Start 07/28/18 at 09:00 Insulin Glargine (Lantus) 22 units DAILY@2000 SC Last administered on 07/28/18 21:15; Admin Dose 22 UNITS; Start 07/28/18 at 20:00 JC NIELSON MD Jul 29, 2018 18:34
--- NOTE | 2018-07-30 06:35 | DS ---
DATE OF ADMISSION: 07/16/2018 DATE OF DISCHARGE: 07/29/2018 DATE OF DISCHARGE (transferred to rehabilitation) 07/29/2018. FINAL DIAGNOSES: 1. Right upper and right lower lobe pneumonia, clinically improving. 2. Neurogenic dysphagia. 3. Dysphagia status post gastrostomy tube placement with evidence of aspiration on swallow study. 4. Severe hyperpotassemia with no evidence of ketoacidosis with associated metabolic encephalopathy, resolved. 5. 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 6. Underlying mild depression. HOSPITAL COURSE: The patient is an 83-year-old gentleman well known to me from previous followup, wi th history of tongue cancer status post left hemiglossectomy in 07/2016 followed by brachytherapy. T he patient has been eating very poorly for the past 2 weeks, getting increasingly depressed with coug h and right-sided chest pain. Chest x-ray showing right upper lobe infiltrate and the patient failed outpatient treatment and he was admitted with increasing lethargy, altered mental status with tachyp gerardo, was brought to the Emergency Room and was admitted after finding of severe hyperglycemia with bl ood glucose of 897. He was admitted to the intensive care unit. He was also found to have lactic ac idosis felt to be a combination of diabetes, uncontrolled, metformin and also due to chemotherapeutic drugs given recently. The patient was given intravenous hydration, insulin treatment and was manage d on ceftriaxone and azithromycin. The patient was seen by Dr. Jeffery from ID standpoint and changed c eftriaxone to Zosyn to cover for anaerobes. The patient gradually improved with IV hydration. He wa s seen by Dr. Goldy Perez from oncology standpoint. The patient had received 6 cycles of Pembrol izumab and he recommended obtaining a PET CT in 4 weeks to see the response. The patient was begun o n p.o. Augmentin and azithromycin on 07/22/2018. A G-tube was placed by Dr. Gleason. The patient has been tolerating G-tube feedings well. In view of the need for continued rehab, patient was transfer red to the rehab unit in much improved condition. Dictated By: DANNY GUEVARA MD SR/NTS Conf#: [id number] DID#: [id number]
== END 2018-07-29 19:27 | DRG 637 ==
LOC: E/R 23:12 → ICU 23:50 → EDBEDREQSVC 07-17 01:04 → ICU 07-17 03:43 → TEL 07-19 22:00 → PP2 07-26 10:35
PROVIDERS: ADMIT Internal Medicine; ATTEND Internal Medicine
PROC: 0DH63UZ Insertion of Feeding Device into Stomach, Percutaneous Approach (ICD-10-PCS; principal; 2018-07-19 17:00)
DX: E11.65 Type 2 diabetes mellitus with hyperglycemia (principal); J69.0 Pneumonitis due to inhalation of food and vomit; E43 Unspecified severe protein-calorie malnutrition; E87.2 Acidosis; Z68.1 Body mass index [BMI] 19.9 or less, adult; C02.9 Malignant neoplasm of tongue, unspecified; R13.10 Dysphagia, unspecified; E03.9 Hypothyroidism, unspecified; F32.9 Major depressive disorder, single episode, unspecified; E87.5 Hyperkalemia
CPT/HCPCS: 36415; 71045; 71260; 74230; 80048; 80053; 81003; 82607; 82728; 82746; 82803; 82962; 83540; 83605; 83735; 83880; 84100; 84145; 84439; 84443; 84484; 85025; 85610; 85730; 87070; 87081; 87086; 87116; 92526; 92610; 92611; 93005; 94664; 97110; 97116; 97161; 97530; J0295; J0456; J0690; J0696; J1650; J1815; J2270; J2405; J2543; J2765; J3480; J7030; Q9967

== ENCOUNTER 2018-07-29 16:46 | Inpatient (IN) | payer MEDICARE, BC ==
[~2018-07-29] VITALS: Ht 175.3 cm; Wt 41.5 kg
[~2018-07-29 16:46] MED LIST changes: +GLIP5TAB13 PO; -GLIPIZIDE PO; -LEVOTHYROXINE PO; -LIPITOR PO; +METF500T24 PO; -METFORMIN PO; +MIRT15TA5 PO; +TRAZ-149 PO
[2018-07-29 20:19] VITALS: BP 101/54; PULSE 73; RESP 18
[2018-07-29] MEDS ORDERED: BISACODYL 10 MG SUPP PR PRN (22:00)
[2018-07-29] MEDS ORDERED: BIOTENE SALIVA STIMULANT SPRAY MUCOUSMEM PRN (22:00)
[2018-07-29] MEDS ORDERED: LACTULOSE 30ML CUP PO PRN (22:00)
[2018-07-29] MEDS ORDERED: ONDANSETRON 4 MG INJ IV PRN (22:00)
[2018-07-29] MEDS ORDERED: MAGNESIUM HYDROXIDE 30ML CUP PO PRN (22:00)
[2018-07-29] MEDS ORDERED: POLYETHYLENE GLYCOL 17 GM PACKET GTB PRN (22:00)
[2018-07-29] MEDS ORDERED: GLUCOSE GEL 15 GRAM TUBE PO PRN ×2 (22:30)
[2018-07-29] MEDS ORDERED: GLUCAGON 1 MG INJ IM PRN (22:30)
[2018-07-29] MEDS ORDERED: DEXTROSE 50% 50 ML SYRINGE IV PRN (22:30)
[2018-07-29] MEDS ORDERED: GLUCOSE GEL 15 GRAM TUBE BUCCAL PRN (22:30)
[2018-07-29 22:42] VITALS: Ht 175.3 cm; Wt 41.5 kg
[2018-07-29] MEDS ORDERED: INSULIN GLARGINE [LANTus] (100 UNITS/ML) SYG SC SCH (23:00)
[2018-07-29] MEDS: AMOXICILLIN/CLAV 875 MG TAB GTB SCH (23:03)
[2018-07-29] MEDS: INSULIN ASPART [NOVOLOG] 3 ML PEN SC SCH (23:05)
[2018-07-30] MEDS: ALBUTEROL 0.083% (NEB) 2.5 MG/3 ML AMP HHN SCH ×6 (00:53→20:50)
[2018-07-30 02:45] VITALS: BP 113/60; PULSE 65; RESP 18
[2018-07-30] MEDS: INSULIN ASPART [NOVOLOG] 3 ML PEN SC SCH ×3 (06:30→22:46)
[2018-07-30 07:30] VITALS: BP 112/55; PULSE 74; RESP 20
[2018-07-30] MEDS: AMOXICILLIN/CLAV 875 MG TAB GTB SCH ×2 (08:20→22:43)
[2018-07-30] MEDS: ENOXAPARIN 30 MG/0.3 ML SYG SC SCH (08:36)
[2018-07-30] MEDS: ESCITALOPRAM 10 MG TAB GTB SCH (08:41)
[2018-07-30] MEDS: NYSTATIN 15 GM CR TOP SCH ×3 (08:41→22:43)
[2018-07-30] MEDS: SILVER SULFADIAZINE 1% 25 GM CR TOP SCH (08:41)
[2018-07-30] MEDS: HYDROGEN PEROXIDE 118 ML TOP SCH (08:42)
[2018-07-30] MEDS ORDERED: DOCUSATE SODIUM 100 MG CAP PO SCH (09:00)
[2018-07-30] MEDS: DOCUSATE SODIUM 10 MG/ML (10ML CUP) GTB SCH ×2 (10:33→21:00)
[2018-07-30 14:00] VITALS: BP 113/66; PULSE 85; RESP 20
--- NOTE | 2018-07-30 15:56 | PN ---
DATE: 07/30/2018 SUBJECTIVE: The patient states he is feeling stronger. He is still experiencing dysphagia and odyno phagia. Not complaining of abdominal pain, nausea, vomiting or diarrhea. OBJECTIVE: GENERAL: The patient is a well-developed, but chronically appearing male in no acute distress but so mewhat lethargic. VITAL SIGNS: Temperature 97.6 axillary, pulse 85, respirations 20, blood pressure 113/66, pulse oxim etry 99% on 2 liters of oxygen by nasal cannula. HEENT: Normocephalic. No evidence of trauma. The pupils are equal, round, reactive to light and ac commodation. Sclerae are nonicteric. Oral mucosa is dry without lesions. There is evidence of mendez glossectomy. NECK: Supple. No jugular venous distention or thyroid enlargement. There are necrotic areas overly ing the left carotid artery where patient has previously had radiation therapy. There is no purulenc e or discharge. CHEST: Clear to auscultation and percussion. No rhonchi, wheezes, rales or rubs. NODES: No palpable lymphadenopathy in any lymph node bearing area. HEART: Regular sinus rhythm. No S3, S4 or murmurs. No rubs. ABDOMEN: Soft. No masses, no ascites. G-tube in place, infusing tube feeding at approximately 60 m L per hour. There is no succussion splash. EXTREMITIES: Good range of motion. No clubbing, edema or cyanosis. No palpable cords or Homans sig n. NEUROLOGIC: Reveals no focal neurologic abnormalities other than the patient's marked weakness. ASSESSMENT: 1. Squamous cell carcinoma of the tongue, recurrent. 2. Malnutrition. DISCUSSION: This patient has had a squamous cell carcinoma. The tongue was resected with a hemiglos sectomy. The patient also then underwent dissection and has had local recurrence. The patient has received local radiation therapy and has also received immunotherapy with a pembroliz umab every 3 weeks. The patient actually does seem to be improving with nutrition. The patient has had significant dysph agia and odynophagia related to radiation therapy. He has actually tolerated pembrolizumab well and had no obvious side effects such as pneumonitis or colitis. The patient today, however, has a white count of 8300 with hemoglobin 11.6, hematocrit 35.3 and plate let count of 513,000. Although the patient is afebrile at this time, I am concerned about the left s hifted white blood cell count which reveals 36% bands as well as myelocytes, metamyelocytes and nucle ated reds. This has not been present in the past. We will repeat studies in the a.m. Dictated By: PEEWEE DONALD MD SR/NTS Conf#: [id number] DID#: [id number] CC: GAYLE COLE MD; DANNY GUEVARA MD;*End*
--- NOTE | 2018-07-30 19:01 | CONS ---
DATE OF ADMISSION: 07/29/2018 DATE OF CONSULTATION: 07/30/2018 TYPE OF CONSULTATION: Rehabilitation post-admission physician evaluation. REHABILITATION IMPAIRMENT CATEGORY: Toxic metabolic encephalopathy. ACTIVE COMORBIDITIES: 1. Labile diabetes. 2. Pneumonia. 3. History of tongue cancer, status post right hemiglossectomy., neck wound 4. Dysphagia, currently n.p.o. 5. Impairments in self-care, mobility and cognition. HISTORY OF PRESENT ILLNESS: The patient is a very pleasant 83-year-old gentleman who was admitted with significant weakness, loss of appetite and severe hypoglycemia with blood glucose level greater than 800. The patient was noted to have significant pneumonia, metabolic encephalopathy and dysphagia requiring G-tube placed. The patient has now been cleared to transfer to the rehabilitation unit for comprehensive interdisciplinary rehab care. FUNCTIONAL HISTORY: Prior to recent events, he was independent in self-care tasks and mobility. Currently, he requires maximal assist for self-care and mobility tasks. I have reviewed the preadmission screen and patient's current functional status is consistent with the preadmission screen. FAMILY AND SOCIAL HISTORY: The patient lives at home with family and hopes to return there upon discharge. PAST MEDICAL HISTORY: 1. Tongue cancer, status post hemiglossectomy. 2. Diabetes mellitus. 3. Hypertension. CURRENT MEDICATIONS: 1. Albuterol inhaler. 2. Augmentin 875 b.i.d. 3. Lovenox 30 mg subcutaneous daily. 4. Lexapro 10 mg daily. 5. Lantus 22 units subcutaneously daily. 6. Morphine p.r.n. 7. Thermazene topically. ALLERGIES: THE PATIENT WITH NO KNOWN DRUG ALLERGIES. PHYSICAL EXAMINATION: VITAL SIGNS: The patient is currently afebrile with stable vital signs. HEENT: Extraocular motions are intact. The patient with neck wound. LUNGS: Clear anteriorly. CARDIAC: S1, S2. ABDOMEN: Soft, nontender, positive bowel sounds. NEUROLOGIC: He is awake and alert. He is oriented to person and hospital. He will follow simple 1-step commands. He has delayed thought processing speed. He demonstrates antigravity strength in bilateral upper extremity and lower extremity. PLAN: The patient has been admitted for comprehensive interdisciplinary acute rehab and is anticipated to tolerate 3 hours of daily therapy in divided doses for at least 5/7 days a week. The treatment plan will include: 1. Physical therapy to focus on bed mobility, transfers and household ambulation with the goal of having the patient reach a standby assist level. We will also focus on functional cognition including path finding and safety awareness. 2. Occupational therapy to focus on hygiene, grooming, dressing, bathing and toileting activities with a focus on functional cognitive self-care tasks and the goal of standby assist and the family safely trained in assistance. 3. Rehabilitation nursing for carryover of therapeutic interventions, the goal of continent of bowel and bladder and the goal of patient and family education with regard to the aforementioned issues. 4. Neuropsychology for full cognitive evaluation and oversight of cognitive program. PT an OT will work on functional cognitive tasks. ESTIMATED LENGTH OF STAY: 14 days. DISPOSITION GOAL: Home with . Barrier: Dysphagia Intervention for Barrier: Tube feedings I acknowledge that I performed a full physical examination on this patient within 24 hours of admission to the rehabilitation unit and believe the patient is a good candidate for comprehensive interdisciplinary rehab care and is anticipated to make reasonable goals in a reasonable period of time as outlined above. Dictated By: GAYLE [place]/NTS Conf#: [id number] DID#: [id number] CC: DANNY GUEVARA MD;*EndCC* MTDD
[2018-07-30] MEDS ORDERED: INSULIN GLARGINE [LANTus] (100 UNITS/ML) SYG SC SCH ×2 (20:00)
[2018-07-30 20:11] VITALS: BP 109/60; PULSE 79; RESP 19
[2018-07-30] MEDS: SENNA TAB PO SCH (22:43)
[2018-07-31] MEDS: ALBUTEROL 0.083% (NEB) 2.5 MG/3 ML AMP HHN SCH ×6 (00:53→21:50)
[2018-07-31 02:00] VITALS: BP 110/65; PULSE 75; RESP 18
[2018-07-31] MEDS: INSULIN ASPART [NOVOLOG] 3 ML PEN SC SCH ×3 (06:46→22:53)
[2018-07-31 07:30] VITALS: BP 116/64; PULSE 72; RESP 20
--- NOTE | 2018-07-31 08:42 | CONS ---
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 2) pneumonia his procalcitonin was improved c/w last week this makes a new infection very unlikely continue with augmentin at present repeat procalcitonin on thursday Consultation Date/Type/Reason Admit Date/Time Jul 29, 2018 at 19:41 Initial Consult Date Date/Time of Note DATE: 07/31/18 TIME: 08:39 24 HR Interval Summary Free Text/Dictation pt was walking the hallway his breathing is ok no N, V, D asked to see pt due to possible new lung infection by CXR Exam/Review of Systems Exam Vitals Vital Signs Date Temp Pulse Resp B/P (MAP) Pulse Ox O2 O2 Flow FiO2 Time Delivery Rate 07/31/18 76 20 95 Nasal 2.0 07:56 Cannula 07/31/18 98.2 110/65 02:00 (80) Intake and Output 07/30/18 07/30/18 07/31/18 1515:00 23:00 07:00 IntakeIntake Total 750 ml BalanceBalance 750 ml Constitutional: alert, oriented Respiratory: clear to auscultation Cardiovascular: regular rate and rhythm Gastrointestinal: soft, non-tender Results Result Diagram: 07/31/18 0607 07/30/18 0958 Results 24hrs Laboratory Tests Test 07/30/18 09:56 07/30/18 09:58 07/30/18 10:23 07/30/18 14:21 Procalcitonin 0.31 H White Blood Count 8.3 # Red Blood Count 3.72 L Hemoglobin 11.6 L Hematocrit 35.3 L Mean Corpuscular 94.9 Volume Mean Corpuscular 31.2 Hemoglobin Mean Corpuscular 32.9 Hemoglobin Concen t Red Cell 13.3 Distribution Width Platelet Count 513 H Mean Platelet 9.1 Volume Immature 1.600 H Granulocytes % Neutrophils % Segmented 28 L Neutrophils % (Manual) Band Neutrophils 36 H % (Manual) Lymphocytes % Lymphocytes % 10 L (Manual) Reactive 3 H Lymphocytes % (Manual) Monocytes % Monocytes % 15 H (Manual) Eosinophils % Eosinophils % 3 (Manual) Basophils % Basophils % 3 H (Manual) Metamyelocytes % 1 H (manual) Myelocytes % 1 H (Manual) Nucleated Red 0.0 Blood Cells % Immature 0.130 H Granulocytes # Neutrophils # Neutrophils # 2.6 (Manual) Band Neutrophils 2.9 H # Lymphocytes 0.8 (Manual) Lymphocytes # Reactive 0.2 H Lymphocytes # Monocytes # Monocytes # 1.2 H (Manual) Eosinophils # Basophils # Basophils # 0.2 H (Manual) Metamyelocytes # 0.0 Myelocytes # 0.0 Nucleated Red Blood Cells # Platelet Estimate INCREASED Giant Platelets 2 H Polychromasia 1+ Spherocytes 1+ Sodium Level 140 Potassium Level 4.2 Chloride Level 99 Carbon Dioxide 29 Level Anion Gap 12 Blood Urea 35 H Nitrogen Creatinine 0.84 Est Glomerular Filtrat Rate mL/min Glucose Level 169 # Calcium Level 9.5 Troponin I < 0.012 Blood Gas Blood arterial Specimen Source Arterial Blood 07/30/2018 10:50: Date Drawn 11 AM Arterial Blood pH 7.494 H (Temp corrected) Arterial Blood 37.6 pCO2 (Temp correct) Arterial Blood 79.5 L pO2 (Temp corrected) Arterial Blood 28.3 H HCO3 Arterial Blood 4.8 H Base Excess Arterial Blood 96.1 Oxygen Saturation Shorty Test ACCEPTAB Arterial Blood Right Radial Gas Puncture Site Arterial 0.3 Blood Carboxyhemo globin Arterial Blood 0.1 Methemoglobin Blood Gas A-a O2 198.6 H Differential Oxyhemoglobin 95.7 Percent Blood Gas 37.0 Temperature Blood Gas MASK - SIMPLE Modality FiO2 45.0 Blood Gas TM Notified Whom Blood Gas 07/30/2018 11:01: Notified Time 01 AM Bedside Glucose 249 H Test 07/30/18 15:51 07/30/18 22:41 07/31/18 06:07 07/31/18 06:43 White Blood Count 7.1 6.0 Red Blood Count 3.61 L 3.44 L Hemoglobin 11.3 L 10.9 L Hematocrit 34.2 L 33.4 L Mean Corpuscular 94.7 97.1 Volume Mean Corpuscular 31.3 31.7 Hemoglobin Mean Corpuscular 33.0 32.6 Hemoglobin Concen t Red Cell 13.3 13.3 Distribution Width Platelet Count 459 H 446 H Mean Platelet 9.3 9.3 Volume Immature 1.500 H 1.800 H Granulocytes % Neutrophils % 81.7 H 73.6 Segmented 66 Neutrophils % (Manual) Band Neutrophils 16 H % (Manual) Lymphocytes % 4.8 L 5.3 L Lymphocytes % 1 L (Manual) Monocytes % 9.1 12.5 H Monocytes % 12 H (Manual) Eosinophils % 2.2 5.5 Eosinophils % 2 (Manual) Basophils % 0.7 1.3 Basophils % 1 (Manual) Metamyelocytes % 2 H (manual) Nucleated Red 0.0 0.0 Blood Cells % Immature 0.110 H 0.110 H Granulocytes # Neutrophils # 5.8 4.4 Neutrophils # 4.8 (Manual) Band Neutrophils 1.1 H # Lymphocytes 0.0 L (Manual) Lymphocytes # 0.3 L 0.3 L Monocytes # 0.7 0.8 Monocytes # 0.8 (Manual) Eosinophils # 0.2 0.3 Basophils # 0.1 0.1 Basophils # 0.0 (Manual) Metamyelocytes # 0.1 H Nucleated Red 0.0 0.0 Blood Cells # Platelet Estimate NORMAL Bedside Glucose 292 H 194 Procalcitonin 0.35 H Medications Medication Current Medications Senna (Senokot) 1 tab HS PO Last administered on 07/30/18at 22:43; Admin Dose 1 TAB; Start 07/30/18 at 21:00 Magnesium Hydroxide (Milk Of Mag) 30 ml BID PRN PO CONSTIPATION; Start 07/29/18 at 22:00 Lactulose (Enulose) 20 gm DAILY PRN PO CONSTIPATION; Start 07/29/18 at 22:00 Bisacodyl (Dulcolax Supp) 10 mg DAILY PRN [place] CONSTIPATION; Start 07/29/18 at 22:00 Albuterol (Proventil 0.083% (Neb)) 2.5 mg Q4H RESP THERAPY HHN Last administered on 07/31/18at 07:55; Admin Dose 2.5 MG; Start 07/30/18 at 01:00 Amoxicillin/ Clavulanate Potassium (Augmentin) 875 mg BID GTB Last administered on 07/30/18at 22:43; Admin Dose 875 MG; Start 07/29/18 at 22:00 Enoxaparin Sodium (Lovenox) 30 mg DAILY SC Last administered on 07/30/18at 08:36; Admin Dose 30 MG; Start 07/30/18 at 09:00 Escitalopram Oxalate (Lexapro) 10 mg DAILY GTB Last administered on 07/30/18at 08:41; Admin Dose 10 MG; Start 07/30/18 at 09:00 Hydrogen Peroxide (Hydrogen Peroxide) 1 applic DAILY TOP Last administered on 07/30/18at 08:42; Admin Dose 1 APPLIC; Start 07/30/18 at 09:00 Insulin Aspart (Novolog Insulin Pen) NOVOLOG *MODERATE* ALGORITHM Q8 SC Last administered on 07/31/18at 06:46; Admin Dose 4 UNIT; Start 07/29/18 at 22:00 Morphine Sulfate (morphine) 2 mg Q4H PRN IV SEVERE PAIN LEVEL 7-10; Start 07/29/18 at 22:00 Nystatin (Nystatin Cr) 1 applic TID TOP Last administered on 07/30/18at 22:43; Admin Dose 1 APPLIC; Start 07/30/18 at 09:00 Ondansetron HCl (Zofran Inj) 4 mg Q4H PRN IV NAUSEA AND/OR VOMITING; Start 07/29/18 at 22:00 Polyethylene Glycol (Miralax) 17 gm DAILY PRN GTB CONSTIPATION; Start 07/29/18 at 22:00 Silver Sulfadiazine (Thermazene 1% 25 Gm) 1 applic DAILY TOP Last administered on 07/30/18at 08:41; Admin Dose 1 APPLIC; Start 07/30/18 at 09:00 Miscellaneous Information 1 ea NOTE XX ; Start 07/29/18 at 22:30 Glucose (Glutose) 15 gm Q15M PRN PO DECREASED GLUCOSE; Start 07/29/18 at 22:30 Glucose (Glutose) 22.5 gm Q15M PRN PO DECREASED GLUCOSE; Start 07/29/18 at 22:30 Dextrose (D50w Syringe) 25 ml Q15M PRN IV DECREASED GLUCOSE; Start 07/29/18 at 22:30 Dextrose (D50w Syringe) 50 ml Q15M PRN IV DECREASED GLUCOSE; Start 07/29/18 at 22:30 Glucagon (Glucagen) 1 mg Q15M PRN IM DECREASED GLUCOSE; Start 07/29/18 at 22:30 Glucose (Glutose) 15 gm Q15M PRN BUCCAL DECREASED GLUCOSE; Start 07/29/18 at 22:30 Docusate Sodium (Colace Liquid Cup) 100 mg BID GTB Last administered on 07/30at 10:33; Admin Dose 100 MG; Start 07/30/18 at 09:00 Acetaminophen (Tylenol Liquid) 650 mg Q4H PRN GTB MILD PAIN(1-3)OR ELEVATED TEMP; Start 07/30/18 at 09:30 Insulin Glargine (Lantus) 25 units DAILY@2000 SC Last administered on 07/30/18at 22:45; Admin Dose 25 UNITS; Start 07/30/18 at 20:00 Multivitamins (Multivitamin) 30 ml DAILY GTB ; Start 07/31/18 at 09:00 Ascorbic Acid (Vitamin C) 500 mg DAILY GTB ; Start 07/31/18 at 09:00 YENNY LUCIANO MD Jul 31, 2018 08:42
[2018-07-31] MEDS: SILVER SULFADIAZINE 1% 25 GM CR TOP SCH ×3 (09:00→18:30)
[2018-07-31] MEDS: DOCUSATE SODIUM 10 MG/ML (10ML CUP) GTB SCH ×2 (09:00→21:12)
--- NOTE | 2018-07-31 10:38 | PN ---
Date/Time of Note Date/Time of Note DATE: 07/31/18 TIME: 10:37 Subjective He reports feeling better today Objective Vital Signs Date Temp Pulse Resp B/P (MAP) Pulse Ox O2 O2 Flow FiO2 Time Delivery Rate 07/31/18 76 20 95 Nasal 2.0 07:56 Cannula 07/31/18 97.4 116/64 07:30 (81) Intake and Output 07/30/18 07/30/18 07/31/18 1515:00 23:00 07:00 IntakeIntake Total 750 ml BalanceBalance 750 ml Exam pulm-cta abd-soft mod transfer Results/Medications Result Diagram: 07/31/18 0607 07/30/18 0958 Results 24 hrs Laboratory Tests Test 07/30/18 14:21 07/30/18 15:51 07/30/18 22:41 07/31/18 06:07 Bedside Glucose 249 H 292 H White Blood Count 7.1 6.0 Red Blood Count 3.61 L 3.44 L Hemoglobin 11.3 L 10.9 L Hematocrit 34.2 L 33.4 L Mean Corpuscular 94.7 97.1 Volume Mean Corpuscular 31.3 31.7 Hemoglobin Mean Corpuscular 33.0 32.6 Hemoglobin Concent Red Cell 13.3 13.3 Distribution Width Platelet Count 459 H 446 H Mean Platelet Volume 9.3 9.3 Immature 1.500 H 1.800 H Granulocytes % Neutrophils % 81.7 H 73.6 Segmented 66 Neutrophils % (Manual) Band Neutrophils % 16 H (Manual) Lymphocytes % 4.8 L 5.3 L Lymphocytes % 1 L (Manual) Monocytes % 9.1 12.5 H Monocytes % (Manual) 12 H Eosinophils % 2.2 5.5 Eosinophils % 2 (Manual) Basophils % 0.7 1.3 Basophils % (Manual) 1 Metamyelocytes % 2 H (manual) Nucleated Red Blood 0.0 0.0 Cells % Immature 0.110 H 0.110 H Granulocytes # Neutrophils # 5.8 4.4 Neutrophils # 4.8 (Manual) Band Neutrophils # 1.1 H Lymphocytes (Manual) 0.0 L Lymphocytes # 0.3 L 0.3 L Monocytes # 0.7 0.8 Monocytes # (Manual) 0.8 Eosinophils # 0.2 0.3 Basophils # 0.1 0.1 Basophils # (Manual) 0.0 Metamyelocytes # 0.1 H Nucleated Red Blood 0.0 0.0 Cells # Platelet Estimate NORMAL Procalcitonin 0.35 H Test 07/31/18 06:43 Bedside Glucose 194 Medications Current Medications Senna (Senokot) 1 tab HS PO Last administered on 07/30/18at 22:43; Admin Dose 1 TAB; Start 07/30/18 at 21:00 Magnesium Hydroxide (Milk Of Mag) 30 ml BID PRN PO CONSTIPATION; Start 07/29/18 at 22:00 Lactulose (Enulose) 20 gm DAILY PRN PO CONSTIPATION; Start 07/29/18 at 22:00 Bisacodyl (Dulcolax Supp) [address] CONSTIPATION; Start 07/29/18 at 22:00 Albuterol (Proventil 0.083% (Neb)) 2.5 mg Q4H RESP THERAPY HHN Last administered on 07/31/18at 07:55; Admin Dose 2.5 MG; Start 07/30/18 at 01:00 Amoxicillin/ Clavulanate Potassium (Augmentin) 875 mg BID GTB Last administered on 07/30/18at 22:43; Admin Dose 875 MG; Start 07/29/18 at 22:00 Enoxaparin Sodium (Lovenox) 30 mg DAILY SC Last administered on 07/30/18 08:36; Admin Dose 30 MG; Start 07/30/18 at 09:00 Escitalopram Oxalate (Lexapro) 10 mg DAILY GTB Last administered on 07/30/18 08:41; Admin Dose 10 MG; Start 07/30/18 at 09:00 Hydrogen Peroxide (Hydrogen Peroxide) 1 applic DAILY TOP Last administered on 07/30/18 08:42; Admin Dose 1 APPLIC; Start 07/30/18 at 09:00 Insulin Aspart (Novolog Insulin Pen) NOVOLOG *MODERATE* ALGORITHM Q8 SC Last administered on 07/31/18 06:46; Admin Dose 4 UNIT; Start 07/29/18 at 22:00 Morphine Sulfate (morphine) 2 mg Q4H PRN IV SEVERE PAIN LEVEL 7-10; Start 07/29/18 at 22:00 Nystatin (Nystatin Cr) 1 applic TID TOP Last administered on 07/30/18at 22:43; Admin Dose 1 APPLIC; Start 07/30/18 at 09:00 Ondansetron HCl (Zofran Inj) 4 mg Q4H PRN IV NAUSEA AND/OR VOMITING; Start 07/29/18 at 22:00 Polyethylene Glycol (Miralax) 17 gm DAILY PRN GTB CONSTIPATION; Start 07/29/18 at 22:00 Silver Sulfadiazine (Thermazene 1% 25 Gm) 1 applic DAILY TOP Last administered on 07/30/18at 08:41; Admin Dose 1 APPLIC; Start 07/30/18 at 09:00 Miscellaneous Information 1 ea NOTE XX ; Start 07/29/18 at 22:30 Glucose (Glutose) 15 gm Q15M PRN PO DECREASED GLUCOSE; Start 07/29/18 at 22:30 Glucose (Glutose) 22.5 gm Q15M PRN PO DECREASED GLUCOSE; Start 07/29/18 at 22:30 Dextrose (D50w Syringe) 25 ml Q15M PRN IV DECREASED GLUCOSE; Start 07/29/18 at 22:30 Dextrose (D50w Syringe) 50 ml Q15M PRN IV DECREASED GLUCOSE; Start 07/29/18 at 22:30 Glucagon (Glucagen) 1 mg Q15M PRN IM DECREASED GLUCOSE; Start 07/29/18 at 22:30 Glucose (Glutose) 15 gm Q15M PRN BUCCAL DECREASED GLUCOSE; Start 07/29/18 at 22:30 Docusate Sodium (Colace Liquid Cup) 100 mg BID GTB Last administered on 07/30/18at 10:33; Admin Dose 100 MG; Start 07/30/18 at 09:00 Acetaminophen (Tylenol Liquid) 650 mg Q4H PRN GTB MILD PAIN(1-3)OR ELEVATED TEMP; Start 07/30/18 at 09:30 Insulin Glargine (Lantus) 25 units DAILY@2000 SC Last administered on 07/30/18at 22:45; Admin Dose 25 UNITS; Start 07/30/18 at 20:00 Multivitamins (Multivitamin) 30 ml DAILY GTB ; Start 07/31/18 at 09:00 Ascorbic Acid (Vitamin C) 500 mg DAILY GTB ; Start 07/31/18 at 09:00 Assessment/Plan Additional Assessment/Plan Rehab- Toxic metabolic encephalopathy. Continue interdisciplinary rehab Labile diabetes-monitor Pneumonia. History of tongue cancer, status post right hemiglossectomy. Dysphagia, continue n.p.o. Integ- continue wound care for neck wound GAYLE COLE MD Jul 31, 2018 10:38
[2018-07-31] MEDS: ASCORBIC ACID 500 MG TAB GTB SCH (11:48)
[2018-07-31] MEDS: MULTIVITAMINS 30 ML CUP GTB SCH (11:48)
[2018-07-31] MEDS: ESCITALOPRAM 10 MG TAB GTB SCH (11:50)
[2018-07-31] MEDS: ENOXAPARIN 30 MG/0.3 ML SYG SC SCH (11:53)
[2018-07-31] MEDS: AMOXICILLIN/CLAV 875 MG TAB GTB SCH ×2 (12:03→21:12)
[2018-07-31 14:00] VITALS: BP 120/65; PULSE 79; RESP 20
--- NOTE | 2018-07-31 17:45 | PN ---
Date/Time of Note Date/Time of Note DATE: 07/31/18 TIME: 17:42 Assessment/Plan VTE Prophylaxis Risk [place]from [facility] [place] risk: 7 SCD applied (from [facility] [place] Yes SCD contraindicated: other Pharmacological prophylaxis: heparin Lines/Catheters IV Catheter Type (from [facility]): [place] Assessment/Plan Assessment/Plan 1. Squamous cell carcinoma of the tongue, recurrent. 2. Malnutrition. DISCUSSION: This patient has had a squamous cell carcinoma. The tongue was resected with a hemiglossectomy. The patient also then underwent dissection and has had local recurrence. The patient has received local radiation therapy and has also received immunotherapy with a pembrolizumab every 3 weeks. The patient actually does seem to be improving with nutrition. The patient has had significant dysphagia and odynophagia related to radiation therapy. He has actually tolerated pembrolizumab well and had no obvious side effects such as pneumonitis or colitis. The patient yesterday had a white count of 8300 without fever and we were concerned about the left shifted white blood cell count which reveals 36% bands as well as myelocytes, metamyelocytes and nucleated red which had not been present in the past. Repeat studies this morning show stability and patient remains afebrile Result Diagram: 07/31/18 0607 07/30/18 0958 Results 24hrs Laboratory Tests Test 07/30/18 22:41 07/31/18 06:07 07/31/18 06:43 07/31/18 14:24 Bedside Glucose 292 H 194 201 White Blood Count 6.0 Red Blood Count 3.44 L Hemoglobin 10.9 L Hematocrit 33.4 L Mean Corpuscular 97.1 Volume Mean Corpuscular 31.7 Hemoglobin Mean Corpuscular 32.6 Hemoglobin Concent Red Cell 13.3 Distribution Width Platelet Count 446 H Mean Platelet Volume 9.3 Immature 1.800 H Granulocytes % Neutrophils % 73.6 Lymphocytes % 5.3 L Monocytes % 12.5 H Eosinophils % 5.5 Basophils % 1.3 Nucleated Red Blood 0.0 Cells % Immature 0.110 H Granulocytes # Neutrophils # 4.4 Lymphocytes # 0.3 L Monocytes # 0.8 Eosinophils # 0.3 Basophils # 0.1 Nucleated Red Blood 0.0 Cells # Procalcitonin 0.35 H Subjective 24 Hr Interval Summary Free Text/Dictation Patient somnolent but arousable and responsive to verbal stimuli Exam/Review of Systems Exam Vitals Vital Signs Date Temp Pulse Resp B/P (MAP) Pulse Ox O2 O2 Flow FiO2 Time Delivery Rate 07/31/18 97.5 79 20 120/65 98 Nasal 2.0 14:00 (83) Cannula Intake and Output 07/30/18 07/30/18 07/31/18 1515:00 23:00 07:00 IntakeIntake Total 750 ml BalanceBalance 750 ml Constitutional: frail Psych: no complaints, nl mood/affect Head: normocephalic, atraumatic Eyes: nl conjunctiva, EOMI Neck: supple, non-tender Respiratory: clear to auscultation, normal air movement Cardiovascular: regular rate and rhythm, nl pulses Gastrointestinal: soft, non-tender Musculoskeletal: nl extremities to inspection, nl gait and stance Results Results 24hrs Laboratory Tests Test 07/30/18 22:41 07/31/18 06:07 07/31/18 06:43 07/31/18 14:24 Bedside Glucose 292 H 194 201 White Blood Count 6.0 Red Blood Count 3.44 L Hemoglobin 10.9 L Hematocrit 33.4 L Mean Corpuscular 97.1 Volume Mean Corpuscular 31.7 Hemoglobin Mean Corpuscular 32.6 Hemoglobin Concent Red Cell 13.3 Distribution Width Platelet Count 446 H Mean Platelet Volume 9.3 Immature 1.800 H Granulocytes % Neutrophils % 73.6 Lymphocytes % 5.3 L Monocytes % 12.5 H Eosinophils % 5.5 Basophils % 1.3 Nucleated Red Blood 0.0 Cells % Immature 0.110 H Granulocytes # Neutrophils # 4.4 Lymphocytes # 0.3 L Monocytes # 0.8 Eosinophils # 0.3 Basophils # 0.1 Nucleated Red Blood 0.0 Cells # Procalcitonin 0.35 H Medications Medication Current Medications Senna (Senokot) 1 tab HS PO Last administered on 07/30/18at 22:43; Admin Dose 1 TAB; Start 07/30/18 at 21:00 Magnesium Hydroxide (Milk Of Mag) 30 ml BID PRN PO CONSTIPATION; Start 07/29/18 at 22:00 Lactulose (Enulose) 20 gm DAILY PRN PO CONSTIPATION; Start 07/29/18 at 22:00 Bisacodyl (Dulcolax Supp) 10 mg DAILY PRN [place] CONSTIPATION; Start 07/29/18 at 22:00 Albuterol (Proventil 0.083% (Neb)) 2.5 mg Q4H RESP THERAPY HHN Last administered on 07/31/18at 07:55; Admin Dose 2.5 MG; Start 07/30/18 at 01:00 Amoxicillin/ Clavulanate Potassium (Augmentin) 875 mg BID GTB Last administered on 07/31/18 12:03; Admin Dose 875 MG; Start 07/29/18 at 22:00 Enoxaparin Sodium (Lovenox) 30 mg DAILY SC Last administered on 07/31/18 11:53; Admin Dose 30 MG; Start 07/30/18 at 09:00 Escitalopram Oxalate (Lexapro) 10 mg DAILY GTB Last administered on 07/31/18 11:50; Admin Dose 10 MG; Start 07/30/18 at 09:00 Hydrogen Peroxide (Hydrogen Peroxide) 1 applic DAILY TOP Last administered on 07/30/18at 08:42; Admin Dose 1 APPLIC; Start 07/30/18 at 09:00 Insulin Aspart (Novolog Insulin Pen) NOVOLOG *MODERATE* ALGORITHM Q8 SC Last administered on 07/31/18at 14:27; Admin Dose 4 UNIT; Start 07/29/18 at 22:00 Morphine Sulfate (morphine) 2 mg Q4H PRN IV SEVERE PAIN LEVEL 7-10; Start 07/29/18 at 22:00 Nystatin (Nystatin Cr) 1 applic TID TOP Last administered on 07/30/18at 22:43; Admin Dose 1 APPLIC; Start 07/30/18 at 09:00 Ondansetron HCl (Zofran Inj) 4 mg Q4H PRN IV NAUSEA AND/OR VOMITING; Start 07/29/18 at 22:00 Polyethylene Glycol (Miralax) 17 gm DAILY PRN GTB CONSTIPATION; Start 07/29/18 at 22:00 Silver Sulfadiazine (Thermazene 1% 25 Gm) 1 applic DAILY TOP Last administered on 07/30/18at 08:41; Admin Dose 1 APPLIC; Start 07/30/18 at 09:00 Miscellaneous Information 1 ea NOTE XX ; Start 07/29/18 at 22:30 Glucose (Glutose) 15 gm Q15M PRN PO DECREASED GLUCOSE; Start 07/29/18 at 22:30 Glucose (Glutose) 22.5 gm Q15M PRN PO DECREASED GLUCOSE; Start 07/29/18 at 22:30 Dextrose (D50w Syringe) 25 ml Q15M PRN IV DECREASED GLUCOSE; Start 07/29/18 at 22:30 Dextrose (D50w Syringe) 50 ml Q15M PRN IV DECREASED GLUCOSE; Start 07/29/18 at 22:30 Glucagon (Glucagen) 1 mg Q15M PRN IM DECREASED GLUCOSE; Start 07/29/18 at 22:30 Glucose (Glutose) 15 gm Q15M PRN BUCCAL DECREASED GLUCOSE; Start 07/29/18 at 22:30 Docusate Sodium (Colace Liquid Cup) 100 mg BID GTB Last administered on 07/30/18at 10:33; Admin Dose 100 MG; Start 07/30/18 at 09:00 Acetaminophen (Tylenol Liquid) 650 mg Q4H PRN GTB MILD PAIN(1-3)OR ELEVATED TEMP; Start 07/30/18 at 09:30 Multivitamins (Multivitamin) 30 ml DAILY GTB Last administered on 07/31/18at 11:48; Admin Dose 30 ML; Start 07/31/18 at 09:00 Ascorbic Acid (Vitamin C) 500 mg DAILY GTB Last administered on 07/31/18at 11:48; Admin Dose 500 MG; Start 07/31/18 at 09:00 Collagenase (Santyl) 1 applic BID TOP ; Start 07/31/18 at 11:30 Insulin Glargine (Lantus) 27 units DAILY@2000 SC ; Start 07/31/18 at 20:00 ANGELINE REEDER MD Jul 31, 2018 17:45
[2018-07-31] MEDS: morphine 2 MG INJ IV PRN (18:19)
[2018-07-31] MEDS: NYSTATIN 15 GM CR TOP SCH ×3 (18:20→21:12)
[2018-07-31] MEDS: HYDROGEN PEROXIDE 118 ML TOP SCH (18:20)
[2018-07-31] MEDS: COLLAGENASE 5 GM (UD JAR) TOP SCH ×2 (18:33→21:12)
[2018-07-31 19:51] VITALS: BP 122/63; PULSE 70; RESP 18
--- NOTE | 2018-07-31 20:06 | PN ---
DATE: 07/31/2018 SUBJECTIVE: The patient is more responsive, has some cough. Denies any shortness of breath today. PHYSICAL EXAMINATION: VITAL SIGNS: Temperature 97.4, blood pressure 160/64, O2 saturation 98% on 2 liters nasal cannula. NECK: Wound has purulent discharge as noted by the nursing. CHEST: Few wheezes bilaterally. HEART: S1, S2 heard, no definite gallops. EXTREMITIES: No edema. Wasting of the lower extremities noted. LABORATORY DATA: WBC count 6.0, hematocrit 33.4, platelet count 446,000. Sodium 140, potassium 4.2, BUN 35, creatinine 0.84. Blood glucose levels 249, 292, and [address]. [address] Jeffery' ID consultation and recommendations greatly appreciated. IMPRESSION: 1. 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 2. Status post left hemiglossectomy. 3. Diabetes mellitus type 2, uncontrolled. 4. Right upper and lower lobe pneumonia. 5. Underlying major depression. 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 Continue ID regine mmendations per Dr. Jeffery. Dictated By: DANNY GUEVARA MD SR/NTS Conf#: [id number] DID#: [id number] CC: GAYLE COLE MD;*EndCC*
[2018-07-31] MEDS: SENNA TAB PO SCH (21:12)
[2018-07-31] MEDS: INSULIN GLARGINE [LANTus] (100 UNITS/ML) SYG SC SCH (21:14)
[2018-08-01] MEDS: ALBUTEROL 0.083% (NEB) 2.5 MG/3 ML AMP HHN SCH ×6 (01:48→21:00)
[2018-08-01 02:00] VITALS: BP 114/61; PULSE 75; RESP 18
[2018-08-01] MEDS: INSULIN ASPART [NOVOLOG] 3 ML PEN SC SCH ×3 (06:23→22:00)
[2018-08-01 07:00] VITALS: BP 107/57; PULSE 75; RESP 18
[2018-08-01] MEDS: MULTIVITAMINS 30 ML CUP GTB SCH (08:10)
[2018-08-01] MEDS: DOCUSATE SODIUM 10 MG/ML (10ML CUP) GTB SCH ×2 (08:10→20:19)
[2018-08-01] MEDS: COLLAGENASE 5 GM (UD JAR) TOP SCH ×2 (08:10→20:19)
[2018-08-01] MEDS: ASCORBIC ACID 500 MG TAB GTB SCH (08:10)
[2018-08-01] MEDS: AMOXICILLIN/CLAV 875 MG TAB GTB SCH ×2 (08:10→20:19)
[2018-08-01] MEDS: ESCITALOPRAM 10 MG TAB GTB SCH (08:10)
[2018-08-01] MEDS: HYDROGEN PEROXIDE 118 ML TOP SCH (08:11)
[2018-08-01] MEDS: NYSTATIN 15 GM CR TOP SCH ×3 (08:11→20:19)
[2018-08-01] MEDS: ENOXAPARIN 30 MG/0.3 ML SYG SC SCH (08:28)
--- NOTE | 2018-08-01 11:12 | RADRPT ---
Vent Rate: 89 bpm RR Interval: 676 msec NC Interval: 131 msec QRS Duration: 72 msec QT Interval: 365 msec QTC Interval: 444 msec P-R-T [place]: 71 - 69 - 76 degrees Sinus rhythm...normal P axis, V-rate 50- 99 Electronically Signed By: Demetrio Clark
[2018-08-01] MEDS: morphine 2 MG INJ IV PRN ×2 (13:33→20:59)
[2018-08-01 14:00] VITALS: BP 103/57; PULSE 74; RESP 18
--- NOTE | 2018-08-01 18:44 | PN ---
DATE: 08/01/2018 SUBJECTIVE: The patient is complaining of right posterior chest wall pain. Denies any shortness of breath. Has mild cough. PHYSICAL EXAMINATION: GENERAL: The patient is afebrile. Temperature 97.5, blood pressure 107/57, O2 sat is 97% on 2 liter s nasal cannula. GENERAL: Has mild depressed affect. HEENT: Mild pallor without cyanosis. CHEST: Clear anteriorly. HEART: S1, S2 heard. No definite gallops. EXTREMITIES: No edema. Homans sign is negative. IMPRESSION: 1. Squamous cell carcinoma of the tongue, status post left hemiglossectomy and left neck radical dis section. 2. Diabetes mellitus type 2, better controlled. 3. Right upper and lower lobe pneumonia. 4. Musculoskeletal pain, probably related to positioning of right posterior chest wall. 5. Underlying major depression. PLAN: We will continue present treatment. We will get patient out of bed in a chair. Continue reha bilitation per Dr. Watts. Dictated By: DANNY GUEVARA MD SR/NTS Conf#: [id number] DID#: [id number] CC: GAYLE COLE MD;*EndCC*
[2018-08-01 20:00] VITALS: BP 107/57; PULSE 72; RESP 18
[2018-08-01] MEDS: INSULIN GLARGINE [LANTus] (100 UNITS/ML) SYG SC SCH (20:17)
[2018-08-01] MEDS: SENNA TAB PO SCH (20:19)
[2018-08-02] MEDS: ALBUTEROL 0.083% (NEB) 2.5 MG/3 ML AMP HHN SCH ×6 (01:00→20:17)
[2018-08-02 02:37] VITALS: BP 132/68; PULSE 78; RESP 18
[2018-08-02] MEDS: INSULIN ASPART [NOVOLOG] 3 ML PEN SC SCH ×3 (06:16→22:31)
[2018-08-02] MEDS: morphine 2 MG INJ IV PRN ×2 (07:04→20:35)
--- NOTE | 2018-08-02 07:27 | PN ---
DATE: 07/30/2018 SUBJECTIVE: The patient has been complaining of right-sided chest pain with some shortness of breath. Denies any left-sided chest pressure. VITAL SIGNS: Temperature 97.7, heart rate is 84 per minute, regular. Patient was desaturating earlier and has been breathing through the mouth. He is presently on facemask, 5 liters, saturating well. CHEST: Revealed few wheezes anteriorly. HEART: S1, S2 heard, no definite gallops. EXTREMITIES: No edema. IMPRESSION: Right-sided chest pain which has been ongoing. We will obtain stat EKG, troponin and chest x-ray and if he continues to be hypoxemic we will proceed get a CT angiogram of the chest to rule out pulmonary embolism.. Will hold therapies for now. Dictated By: DANNY GUEVARA MD, SR/MINI Conf#: [id number] DID#: [id number] MTDD
[2018-08-02 07:30] VITALS: BP 113/62; PULSE 69; RESP 20
--- NOTE | 2018-08-02 08:04 | CONS ---
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 Ruiz and will order chest CT on augmentin, if CT still shows infiltrates will change antibiotics repeat procalcitonin in a.m. Consultation Date/Type/Reason Admit Date/Time Jul 29, 2018 at 19:41 Initial Consult Date Date/Time of Note DATE: 08/02/18 TIME: 07:55 24 HR Interval Summary Free Text/Dictation pt states that he has R sided CP breathing is so-so he has a cough no N, V, D, abd pain Exam/Review of Systems Exam Vitals Vital Signs Date Temp Pulse Resp B/P (MAP) Pulse Ox O2 O2 Flow FiO2 Time Delivery Rate 08/02/18 98.0 78 18 132/68 97 Nasal 2.0 02:37 (89) Cannula Intake and Output 08/01/18 08/01/18 08/02/18 1515:00 23:00 07:00 IntakeIntake Total 1360 ml OutputOutput Total 600 ml BalanceBalance 760 ml Constitutional: alert, oriented ENMT: mucosa pink and moist Respiratory: other (decreased BS at R base) Cardiovascular: regular rate and rhythm Gastrointestinal: soft, non-tender Results Result Diagram: 08/02/18 0601 08/02/18 0601 Results 24hrs Laboratory Tests Test 08/01/18 13:52 08/01/18 20:14 08/01/18 22:25 08/02/18 06:01 Bedside Glucose 185 197 172 White Blood Count 7.0 Red Blood Count 3.50 L Hemoglobin 10.9 L Hematocrit 34.4 L Mean Corpuscular 98.3 Volume Mean Corpuscular 31.1 Hemoglobin Mean Corpuscular 31.7 L Hemoglobin Concent Red Cell 13.3 Distribution Width Platelet Count 496 H Mean Platelet Volume 9.0 Immature 1.300 H Granulocytes % Neutrophils % 70.8 Lymphocytes % 6.4 L Monocytes % 11.8 H Eosinophils % 8.4 H Basophils % 1.3 Nucleated Red Blood 0.0 Cells % Immature 0.090 H Granulocytes # Neutrophils # 5.0 Lymphocytes # 0.5 L Monocytes # 0.8 Eosinophils # 0.6 H Basophils # 0.1 Nucleated Red Blood 0.0 Cells # Sodium Level 142 Potassium Level 4.3 Chloride Level 102 Carbon Dioxide Level 34 H Anion Gap 6 Blood Urea Nitrogen 35 H Creatinine 0.86 Est Glomerular Filtrat Rate mL/min Glucose Level 161 Calcium Level 9.2 Procalcitonin 0.43 H Test 08/02/18 06:12 Bedside Glucose 160 Medications Medication Current Medications Senna (Senokot) 1 tab HS PO Last administered on 08/01/18 20:19; Admin Dose 1 TAB; Start 07/30/18 at 21:00 Magnesium Hydroxide (Milk Of Mag) 30 ml BID PRN PO CONSTIPATION; Start 07/29/18 at 22:00 Lactulose (Enulose) 20 gm DAILY PRN PO CONSTIPATION; Start 07/29/18 at 22:00 Bisacodyl (Dulcolax Supp) 10 mg DAILY PRN [place] CONSTIPATION; Start 07/29/18 at 22:00 Albuterol (Proventil 0.083% (Neb)) 2.5 mg Q4H RESP THERAPY HHN Last administered on 08/01/18at 08:37; Admin Dose 2.5 MG; Start 07/30/18 at 01:00 Amoxicillin/ Clavulanate Potassium (Augmentin) 875 mg BID GTB Last administered on 08/01/18 20:19; Admin Dose 875 MG; Start 07/29/18 at 22:00 Enoxaparin Sodium (Lovenox) 30 mg DAILY SC Last administered on 08/01/18 08:28; Admin Dose 30 MG; Start 07/30/18 at 09:00 Escitalopram Oxalate (Lexapro) 10 mg DAILY GTB Last administered on 08/01/18 08:10; Admin Dose 10 MG; Start 07/30/18 at 09:00 Hydrogen Peroxide (Hydrogen Peroxide) 1 applic DAILY TOP Last administered on 08/01/18 08:11; Admin Dose 1 APPLIC; Start 07/30/18 at 09:00 Insulin Aspart (Novolog Insulin Pen) NOVOLOG *MODERATE* ALGORITHM Q8 SC Last administered on 08/02/18 06:16; Admin Dose 2 UNIT; Start 07/29/18 at 22:00 Morphine Sulfate (morphine) 2 mg Q4H PRN IV SEVERE PAIN LEVEL 7-10 Last administered on 08/02/18 07:04; Admin Dose 2 MG; Start 07/29/18 at 22:00 Nystatin (Nystatin Cr) 1 applic TID TOP Last administered on 08/01/18 20:19; Admin Dose 1 APPLIC; Start 07/30/18 at 09:00 Ondansetron HCl (Zofran Inj) 4 mg Q4H PRN IV NAUSEA AND/OR VOMITING; Start 07/29/18 at 22:00 Polyethylene Glycol (Miralax) 17 gm DAILY PRN GTB CONSTIPATION; Start 07/29/18 at 22:00 Miscellaneous Information 1 ea NOTE XX ; Start 07/29/18 at 22:30 Glucose (Glutose) 15 gm Q15M PRN PO DECREASED GLUCOSE; Start 07/29/18 at 22:30 Glucose (Glutose) 22.5 gm Q15M PRN PO DECREASED GLUCOSE; Start 07/29/18 at 22:30 Dextrose (D50w Syringe) 25 ml Q15M PRN IV DECREASED GLUCOSE; Start 07/29/18 at 22:30 Dextrose (D50w Syringe) 50 ml Q15M PRN IV DECREASED GLUCOSE; Start 07/29/18 at 22:30 Glucagon (Glucagen) 1 mg Q15M PRN IM DECREASED GLUCOSE; Start 07/29/18 at 22:30 Glucose (Glutose) 15 gm Q15M PRN BUCCAL DECREASED GLUCOSE; Start 07/29/18 at 22:30 Docusate Sodium (Colace Liquid Cup) 100 mg BID GTB Last administered on 08/01/18 20:19; Admin Dose 100 MG; Start 07/30/18 at 09:00 Acetaminophen (Tylenol Liquid) 650 mg Q4H PRN GTB MILD PAIN(1-3)OR ELEVATED TEMP; Start 07/30/18 at 09:30 Multivitamins (Multivitamin) 30 ml DAILY GTB Last administered on 08/01/18at 08:10; Admin Dose 30 ML; Start 07/31/18 at 09:00 Ascorbic Acid (Vitamin C) 500 mg DAILY GTB Last administered on 08/01/18at 08: 10; Admin Dose 500 MG; Start 07/31/18 at 09:00 Collagenase (Santyl) 1 applic BID TOP Last administered on 6/23/19at 20:19; Admin Dose 1 APPLIC; Start 07/31/18 at 11:30 Insulin Glargine (Lantus) 27 units DAILY@2000 SC Last administered on 08/01/18at 20:17; Admin Dose 27 UNITS; Start 07/31/18 at 20:00 YENNY LUCIANO MD Aug 02, 2018 08:04
[2018-08-02] MEDS: DOCUSATE SODIUM 10 MG/ML (10ML CUP) GTB SCH ×2 (09:00→20:40)
[2018-08-02] MEDS: ASCORBIC ACID 500 MG TAB GTB SCH (10:19)
[2018-08-02] MEDS: ESCITALOPRAM 10 MG TAB GTB SCH (10:19)
[2018-08-02] MEDS: AMOXICILLIN/CLAV 875 MG TAB GTB SCH (10:19)
[2018-08-02] MEDS: ENOXAPARIN 30 MG/0.3 ML SYG SC SCH (10:20)
[2018-08-02] MEDS: MULTIVITAMINS 30 ML CUP GTB SCH (10:20)
[2018-08-02] MEDS: COLLAGENASE 5 GM (UD JAR) TOP SCH ×2 (10:28→20:35)
[2018-08-02] MEDS: HYDROGEN PEROXIDE 118 ML TOP SCH (10:29)
[2018-08-02] MEDS: NYSTATIN 15 GM CR TOP SCH ×3 (10:29→20:36)
[2018-08-02] MEDS: ACETAMINOPHEN 650MG/20.3ML CUP GTB PRN (13:33)
[2018-08-02 14:00] VITALS: BP 126/73; PULSE 74; RESP 20
--- NOTE | 2018-08-02 14:04 | PN ---
DATE: 08/02/2018 SUBJECTIVE: The patient complains of more pain, right posterior chest. Has congested cough. PHYSICAL EXAMINATION: VITAL SIGNS: Temperature 97.5, blood pressure 131/62, O2 saturation is 99% on 2 liters nasal cannula . CHEST: Reveals occasional wheezes. HEART: S1, S2 heard. No definite gallops. EXTREMITIES: Shows no edema. LABORATORY DATA: WBC count 7.0, hematocrit 34.4, platelet count 496,000. Glucose levels were normal glycemic range. Procalcitonin 0.43 from this morning. DIAGNOSTIC DATA: CT scan of the chest was done which shows multilobar consolidation bilaterally, inc reased compared to prior CT, small pleural effusions. A 6 mm left upper lobe nodule was noted. IMPRESSION: 1. Bilateral pneumonia. We will follow recommendations per Dr. Jeffery regarding antibiotics. 2. Diabetes mellitus type 2, better controlled. 3. 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 4. Pain in right posterior chest wall, likely musculoskeletal. 5. Underlying major depression. We will continue present treatment. We will medicate with Tylenol prior to therapy. Dictated By: DANNY GUEVARA MD SR/NTS Conf#: [id number] DID#: [id number] CC: GAYLE COLE MD;*EndCC*
--- NOTE | 2018-08-02 14:54 | PN ---
Date/Time of Note Date/Time of Note DATE: 08/02/18 TIME: 14:52 Subjective Patient with dizziness and chest discomfort when up with therapies today. He was brought back to bed, reports symptoms improved Objective Vital Signs Date Temp Pulse Resp B/P (MAP) Pulse Ox O2 O2 Flow FiO2 Time Delivery Rate 08/02/18 2.0 12:05 08/02/18 97.5 69 20 113/62 99 Nasal 07:30 (79) Cannula Intake and Output 08/01/18 08/01/18 08/02/18 1515:00 23:00 07:00 IntakeIntake Total 1360 ml OutputOutput Total 600 ml BalanceBalance 760 ml Exam pulm-cta mod transfer Results/Medications Result Diagram: 08/02/18 0608/02/18 0601 Results 24 hrs Laboratory Tests Test 08/01/18 20:14 08/01/18 22:25 08/02/18 06:01 08/02/18 06:12 Bedside Glucose 197 172 160 White Blood Count 7.0 Red Blood Count 3.50 L Hemoglobin 10.9 L Hematocrit 34.4 L Mean Corpuscular 98.3 Volume Mean Corpuscular 31.1 Hemoglobin Mean Corpuscular 31.7 L Hemoglobin Concent Red Cell 13.3 Distribution Width Platelet Count 496 H Mean Platelet Volume 9.0 Immature 1.300 H Granulocytes % Neutrophils % 70.8 Lymphocytes % 6.4 L Monocytes % 11.8 H Eosinophils % 8.4 H Basophils % 1.3 Nucleated Red Blood 0.0 Cells % Immature 0.090 H Granulocytes # Neutrophils # 5.0 Lymphocytes # 0.5 L Monocytes # 0.8 Eosinophils # 0.6 H Basophils # 0.1 Nucleated Red Blood 0.0 Cells # Sodium Level 142 Potassium Level 4.3 Chloride Level 102 Carbon Dioxide Level 34 H Anion Gap 6 Blood Urea Nitrogen 35 H Creatinine 0.86 Est Glomerular Filtrat Rate mL/min Glucose Level 161 Calcium Level 9.2 Procalcitonin 0.43 H Medications Current Medications Senna (Senokot) 1 tab HS PO Last administered on 08/01/18at 20:19; Admin Dose 1 TAB; Start 07/30/18 at 21:00 Magnesium Hydroxide (Milk Of Mag) 30 ml BID PRN PO CONSTIPATION; Start 07/29/18 at 22:00 Lactulose (Enulose) 20 gm DAILY PRN PO CONSTIPATION; Start 07/29/18 at 22:00 Bisacodyl (Dulcolax Supp) 10 mg DAILY PRN [place] CONSTIPATION; Start 07/29/18 at 22:00 Albuterol (Proventil 0.083% (Neb)) 2.5 mg Q4H RESP THERAPY HHN Last administered on 08/01/18 08:37; Admin Dose 2.5 MG; Start 07/30/18 at 01:00 Amoxicillin/ Clavulanate Potassium (Augmentin) 875 mg BID GTB Last administered on 08/02/18 10:19; Admin Dose 875 MG; Start 07/29/18 at 22:00 Enoxaparin Sodium (Lovenox) 30 mg DAILY SC Last administered on 08/02/18 10:20; Admin Dose 30 MG; Start 07/30/18 at 09:00 Escitalopram Oxalate (Lexapro) 10 mg DAILY GTB Last administered on 08/02/18 10:19; Admin Dose 10 MG; Start 07/30/18 at 09:00 Hydrogen Peroxide (Hydrogen Peroxide) 1 applic DAILY TOP Last administered on 08/02/18 10:29; Admin Dose 1 APPLIC; Start 07/30/18 at 09:00 Insulin Aspart (Novolog Insulin Pen) NOVOLOG *MODERATE* ALGORITHM Q8 SC Last administered on 08/02/18 06:16; Admin Dose 2 UNIT; Start 07/29/18 at 22:00 Morphine Sulfate (morphine) 2 mg Q4H PRN IV SEVERE PAIN LEVEL 7-10 Last administered on 08/02/18 07:04; Admin Dose 2 MG; Start 07/29/18 at 22:00 Nystatin (Nystatin Cr) 1 applic TID TOP Last administered on 08/02/18 13:33; Admin Dose 1 APPLIC; Start 07/30/18 at 09:00 Ondansetron HCl (Zofran Inj) 4 mg Q4H PRN IV NAUSEA AND/OR VOMITING; Start 07/29/18 at 22:00 Polyethylene Glycol (Miralax) 17 gm DAILY PRN GTB CONSTIPATION; Start 07/29/18 at 22:00 Miscellaneous Information 1 ea NOTE XX ; Start 07/29/18 at 22:30 Glucose (Glutose) 15 gm Q15M PRN PO DECREASED GLUCOSE; Start 07/29/18 at 22:30 Glucose (Glutose) 22.5 gm Q15M PRN PO DECREASED GLUCOSE; Start 07/29/18 at 22:30 Dextrose (D50w Syringe) 25 ml Q15M PRN IV DECREASED GLUCOSE; Start 07/29/18 at 22:30 Dextrose (D50w Syringe) 50 ml Q15M PRN IV DECREASED GLUCOSE; Start 07/29/18 at 22:30 Glucagon (Glucagen) 1 mg Q15M PRN IM DECREASED GLUCOSE; Start 07/29/18 at 22:30 Glucose (Glutose) 15 gm Q15M PRN BUCCAL DECREASED GLUCOSE; Start 07/29/18 at 22:30 Docusate Sodium (Colace Liquid Cup) 100 mg BID GTB Last administered on 08/01/18 20:19; Admin Dose 100 MG; Start 07/30/18 at 09:00 Acetaminophen (Tylenol Liquid) 650 mg Q4H PRN GTB MILD PAIN(1-3)OR ELEVATED TEMP Last administered on 08/02/18at 13:33; Admin Dose 650 MG; Start 07/30/18 at 09:30 Multivitamins (Multivitamin) 30 ml DAILY GTB Last administered on 08/02/18 10:20; Admin Dose 30 ML; Start 07/31/18 at 09:00 Ascorbic Acid (Vitamin C) 500 mg DAILY GTB Last administered on 08/02/18 10:19 ; Admin Dose 500 MG; Start 07/31/18 at 09:00 Collagenase (Santyl) 1 applic BID TOP Last administered on 08/02/18 10:28; Admin Dose 1 APPLIC; Start 07/31/18 at 11:30 Insulin Glargine (Lantus) 27 units DAILY@2000 SC Last administered on 08/01/18 20:17; Admin Dose 27 UNITS; Start 07/31/18 at 20:00 Assessment/Plan Additional Assessment/Plan Rehab- Toxic metabolic encephalopathy. Hold OOB therapies this afternoon Labile diabetes-monitor Pneumonia. History of tongue cancer, status post right hemiglossectomy. Dysphagia, continue n.p.o. Integ- continue wound care for neck wound GAYLE COLE MD Aug 02, 2018 14:54
[2018-08-02] MEDS: MEROPENEM 1 GM/50ML(PMX) 50 ML IVPB SCH (17:42)
[2018-08-02 20:00] VITALS: BP 99/64; PULSE 77; RESP 18
[2018-08-02] MEDS: INSULIN GLARGINE [LANTus] (100 UNITS/ML) SYG SC SCH (20:19)
[2018-08-02] MEDS: DOXYCYCLINE 100 MG TAB GTB SCH (20:34)
[2018-08-02] MEDS: SENNA TAB PO SCH (20:40)
--- NOTE | 2018-08-02 21:20 | PN ---
DATE: 08/02/2018 SUBJECTIVE: The patient is today experiencing some right-sided pleuritic chest pain. states that while he was up walking today, he did have an emesis which appeared consistent with tube feeding. The patient has been receiving tube feeding at 50 mL per hour. OBJECTIVE: GENERAL: The patient is a thin frail male who is complaining of right-sided chest discomfort. VITAL SIGNS: Temperature 97.7 orally, pulse 74 per minute and regular, respirations 20, blood pressu re 126/73 and pulse oximetry is 95% on 2 liters of oxygen by nasal cannula. SKIN: No ecchymoses, no petechiae or rashes. HEENT: Normocephalic. No evidence of trauma. The pupils are equal, round, react to light and accom modation. Sclerae nonicteric. Oral mucosa is dry, but without lesions. There is evidence of a mendez glossectomy. There is nasal oxygen in place. NECK: Supple, no jugular venous distention or thyroid enlargement. There are ulcerated necrotic are as over the left carotid artery were in the area of previous lymphadenopathy and radiation therapy. CHEST: Decreased breath sounds on the right with occasional rhonchi. HEART: Regular sinus rhythm, no S3, S4 or murmurs. No rubs. ABDOMEN: Soft, no masses, no ascites. G-tube in place. A tube feed is infusing at 50 mL per hour. There is no succussion splash. EXTREMITIES: Good range of motion. No clubbing, no edema or cyanosis. No palpable cords or Homans sign. NEUROLOGIC: Reveals weakness, but no focal neurologic abnormalities. LABORATORY DATA: The white count today is 7000 with an absolute neutrophil count of 5000, hemoglobin was 10.9, hematocrit 34.4, and platelet count 496,000. Sodium 142, potassium 4.3, BUN 35, creatinin e 0.86. A CT scan of the chest done today demonstrates "multilobar consolidation" bilaterally. This apparent ly has increased as compared to a prior CBC. There is also an intermediate 6 mm left upper lobe pulm onary nodule noted which is unchanged from previous. ASSESSMENT: 1. Squamous cell carcinoma of the tongue, recurrent. 2. Malnutrition. 3. Multilobular pneumonia. Concerned about the possibility of recurrent aspiration as cause for pneumonia. Some of this may hav e predated the patient's admission as he was having dysphagia after radiation therapy. We will add metoclopramide to the patient's medications in an attempt to assist in gastric emptying. The patient is presently receiving doxycycline and meropenem. The patient has been seen by Dr. Jeffery in infectious disease consultation. Dictated By: PEEWEE DONALD MD SR/NTS Conf#: [id number] DID#: [id number] CC: GAYLE COLE MD;*EndCC*
[2018-08-03] MEDS: METOCLOPRAMIDE 10 MG INJ IV SCH ×4 (00:38→18:34)
[2018-08-03] MEDS: ALBUTEROL 0.083% (NEB) 2.5 MG/3 ML AMP HHN SCH ×6 (02:18→21:07)
[2018-08-03 02:26] VITALS: BP 108/60; PULSE 84; RESP 18
[2018-08-03] MEDS: INSULIN ASPART [NOVOLOG] 3 ML PEN SC SCH ×3 (06:28→22:00)
[2018-08-03 07:00] VITALS: BP 90/51; PULSE 77; RESP 18
[2018-08-03] MEDS: MULTIVITAMINS 30 ML CUP GTB SCH (08:44)
[2018-08-03] MEDS: ESCITALOPRAM 10 MG TAB GTB SCH (08:45)
[2018-08-03] MEDS: MEROPENEM 1 GM/50ML(PMX) 50 ML IVPB SCH ×2 (08:45→21:57)
[2018-08-03] MEDS: ASCORBIC ACID 500 MG TAB GTB SCH (08:45)
[2018-08-03] MEDS: COLLAGENASE 5 GM (UD JAR) TOP SCH ×3 (08:45→21:57)
[2018-08-03] MEDS: morphine 2 MG INJ IV PRN ×2 (08:46→14:30)
[2018-08-03] MEDS: DOCUSATE SODIUM 10 MG/ML (10ML CUP) GTB SCH ×2 (08:47→21:00)
[2018-08-03] MEDS: ENOXAPARIN 30 MG/0.3 ML SYG SC SCH (08:50)
[2018-08-03] MEDS: HYDROGEN PEROXIDE 118 ML TOP SCH (09:26)
[2018-08-03] MEDS: DOXYCYCLINE 100 MG TAB GTB SCH ×2 (09:26→21:57)
[2018-08-03] MEDS: NYSTATIN 15 GM CR TOP SCH ×3 (09:27→21:57)
--- NOTE | 2018-08-03 12:09 | PN ---
Date/Time of Note Date/Time of Note DATE: 08/03/18 TIME: 12:07 Subjective Improved activity tolerance today Objective Vital Signs Date Temp Pulse Resp B/P (MAP) Pulse Ox O2 O2 Flow FiO2 Time Delivery Rate 08/03/18 79 20 96 Nasal 2.0 08:12 Cannula 08/03/18 98.2 90/51 (64) 07:00 Intake and Output 08/02/18 08/02/18 08/03/18 1515:00 23:00 07:00 IntakeIntake Total 130 ml BalanceBalance 130 ml Exam min transfer min ambulation 40 feet Results/Medications Result Diagram: 08/03/18 0640 08/02/18 0601 Results 24 hrs Laboratory Tests Test 08/02/18 15:09 08/02/18 20:16 08/02/18 22:27 08/03/18 02:19 Bedside Glucose 233 H 152 184 216 Test 08/03/18 06:24 08/03/18 06:40 Bedside Glucose 200 White Blood Count 6.9 Red Blood Count 3.52 L Hemoglobin 11.0 L Hematocrit 34.1 L Mean Corpuscular 96.9 Volume Mean Corpuscular 31.3 Hemoglobin Mean Corpuscular 32.3 Hemoglobin Concent Red Cell 13.4 Distribution Width Platelet Count 437 H Mean Platelet Volume 9.2 Immature 0.900 H Granulocytes % Neutrophils % 71.2 Lymphocytes % 6.7 L Monocytes % 13.6 H Eosinophils % 6.4 Basophils % 1.2 Nucleated Red Blood 0.0 Cells % Immature 0.060 H Granulocytes # Neutrophils # 4.9 Lymphocytes # 0.5 L Monocytes # 0.9 Eosinophils # 0.4 Basophils # 0.1 Nucleated Red Blood 0.0 Cells # Procalcitonin 0.41 H Medications Current Medications Senna (Senokot) 1 tab HS PO Last administered on 08/01/18at 20:19; Admin Dose 1 TAB; Start 07/30/18 at 21:00 Magnesium Hydroxide (Milk Of Mag) 30 ml BID PRN PO CONSTIPATION; Start 07/29/18 at 22:00 Lactulose (Enulose) 20 gm DAILY PRN PO CONSTIPATION; Start 07/29/18 at 22:00 Bisacodyl (Dulcolax Supp) 10 mg DAILY PRN [place] CONSTIPATION; Start 07/29/18 at 22:00 Albuterol (Proventil 0.083% (Neb)) 2.5 mg Q4H RESP THERAPY HHN Last a dministered on 08/03/18 08:09; Admin Dose 2.5 MG; Start 07/30/18 at 01:00 Enoxaparin Sodium (Lovenox) 30 mg DAILY SC Last administered on 08/03/18 08:50; Admin Dose 30 MG; Start 07/30/18 at 09:00 Escitalopram Oxalate (Lexapro) 10 mg DAILY GTB Last administered on 08/03/18 08:45; Admin Dose 10 MG; Start 07/30/18 at 09:00 Hydrogen Peroxide (Hydrogen Peroxide) 1 applic DAILY TOP Last administered on 08/03/18 09:26; Admin Dose 1 APPLIC; Start 07/30/18 at 09:00 Insulin Aspart (Novolog Insulin Pen) NOVOLOG *MODERATE* ALGORITHM Q8 SC Last administered on 08/03/18 06:28; Admin Dose 4 UNIT; Start 07/29/18 at 22:00 Morphine Sulfate (morphine) 2 mg Q4H PRN IV SEVERE PAIN LEVEL 7-10 Last admin istered on 08/03/18 08:46; Admin Dose 2 MG; Start 07/29/18 at 22:00 Nystatin (Nystatin Cr) 1 applic TID TOP Last administered on 08/03/18 09:27; Admin Dose 1 APPLIC; Start 07/30/18 at 09:00 Ondansetron HCl (Zofran Inj) 4 mg Q4H PRN IV NAUSEA AND/OR VOMITING; Start 07/29/18 at 22:00 Polyethylene Glycol (Miralax) 17 gm DAILY PRN GTB CONSTIPATION; Start 07/29/18 at 22:00 Miscellaneous Information 1 ea NOTE XX ; Start 07/29/18 at 22:30 Glucose (Glutose) 15 gm Q15M PRN PO DECREASED GLUCOSE; Start 07/29/18 at 22:30 Glucose (Glutose) 22.5 gm Q15M PRN PO DECREASED GLUCOSE; Start 07/29/18 at 22: 30 Dextrose (D50w Syringe) 25 ml Q15M PRN IV DECREASED GLUCOSE; Start 07/29/18 at 22:30 Dextrose (D50w Syringe) 50 ml Q15M PRN IV DECREASED GLUCOSE; Start 07/29/18 at 22:30 Glucagon (Glucagen) 1 mg Q15M PRN IM DECREASED GLUCOSE; Start 07/29/18 at 22:30 Glucose (Glutose) 15 gm Q15M PRN BUCCAL DECREASED GLUCOSE; Start 07/29/18 at 22:30 Docusate Sodium (Colace Liquid Cup) 100 mg BID GTB Last administered on 08/03/18 08:47; Admin Dose 100 MG; Start 07/30/18 at 09:00 Acetaminophen (Tylenol Liquid) 650 mg Q4H PRN GTB MILD PAIN(1-3)OR ELEVATED TEMP Last administered on 08/02/18 13:33; Admin Dose 650 MG; Start 07/30/18 at 09:30 Multivitamins (Multivitamin) 30 ml DAILY GTB Last administered on 08/03/18 08:44; Admin Dose 30 ML; Start 07/31/18 at 09:00 Ascorbic Acid (Vitamin C) 500 mg DAILY GTB Last administered on 08/03/18 08:45; Admin Dose 500 MG; Start 07/31/18 at 09:00 Collagenase (Santyl) 1 applic BID TOP Last administered on 08/03/18 08:45; Admin Dose 1 APPLIC; Start 07/31/18 at 11:30 Insulin Glargine (Lantus) 27 units DAILY@2000 SC Last administered on 08/02/18 20:19; Admin Dose 27 UNITS; Start 07/31/18 at 20:00 Meropenem/Sodium Chloride 50 ml @ 100 mls/hr Q12 IVPB Last administered on 08/03/18 08:45; Admin Dose 100 MLS/HR; Start 08/02/18 at 17:30 Doxycycline Hyclate (Vibramycin) 100 mg BID GTB Last administered on 08/03/18 09:26; Admin Dose 100 MG; Start 08/02/18 at 21:00 Metoclopramide HCl (Reglan) 10 mg Q6 IV Last administered on 08/03/18 06:26; Admin Dose 10 MG; Start 08/03/18 at 00:00 Assessment/Plan Additional Assessment/Plan Rehab- Toxic metabolic encephalopathy. Much better today. Continue activities as tolerated Labile diabetes-monitor Pneumonia-antibiotics per ID History of tongue cancer, status post right hemiglossectomy. Dysphagia, continue n.p.o. Integ- continue wound care for neck wound GAYLE COLE MD Aug 03, 2018 12:09
[2018-08-03 14:00] VITALS: BP 92/50; PULSE 75; RESP 18
[2018-08-03 15:00] VITALS: BP 110/60; PULSE 86
--- NOTE | 2018-08-03 18:23 | PN ---
DATE: 08/03/2018 SUBJECTIVE: The patient is more responsive today, was able to participate in therapy. Continues wit h mild cough. OBJECTIVE: VITAL SIGNS: Temperature 98.2, blood pressure 90/51, O2 sats 100% on 2 liters nasal cannula. CHEST: Occasional wheezes. HEART: S1, S2 heard. No ____ gallops. EXTREMITIES: No edema. LABORATORY DATA: WBC count 6.9, hematocrit 34.1, platelet count is 437,000. Glucose levels 194, [address] Perez's oncology consult is greatly appreciated. IMPRESSION: 1. Severe debility with decreased functional status. 2. Bilateral pneumonia, on IV antibiotics, likely aspiration. 3. Diabetes mellitus type 2. 4. Squamous cell cancer of the tongue status post left hemiglossectomy and left neck radical dissect ion. 5. Underlying major depression, improving. PLAN: We will continue rehab treatment per Dr. Watts. Recheck chest x-ray in the next 2 days. Dictated By: DANNY GUEVARA MD SR/NTS Conf#: [id number] DID#: [id number] CC: GAYLE COLE MD;*EndCC*
[2018-08-03] MEDS: INSULIN GLARGINE [LANTus] (100 UNITS/ML) SYG SC SCH (20:08)
[2018-08-03] MEDS: SENNA TAB PO SCH (21:00)
[2018-08-03 21:57] VITALS: BP 82/50; PULSE 91; RESP 18
[2018-08-04] MEDS: METOCLOPRAMIDE 10 MG INJ IV SCH ×4 (00:31→18:56)
[2018-08-04] MEDS: ALBUTEROL 0.083% (NEB) 2.5 MG/3 ML AMP HHN SCH ×6 (01:00→20:21)
[2018-08-04] MEDS: morphine 2 MG INJ IV PRN ×2 (01:24→08:40)
[2018-08-04 04:02] VITALS: BP 94/51; PULSE 54; RESP 18
[2018-08-04] MEDS: INSULIN ASPART [NOVOLOG] 3 ML PEN SC SCH ×3 (06:00→21:38)
[2018-08-04 07:00] VITALS: BP 99/56; PULSE 71; RESP 18
--- NOTE | 2018-08-04 07:59 | CONS ---
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 Ruiz and will order chest CT on augmentin, if CT still shows infiltrates will change antibiotics repeat procalcitonin in a.m. 08/04 - merrem/doxy started yesterday CT chest showed increase in infiltrates will order mucinex 200mg q4 hours via G-tube have told nurse to be sure that speech therapy comes to help with managing his oral secretions if pt remains unable to bring up phlegm, consider chest physiotherapy 2) diarrhea meds started later 08/02 continue to monitor start probiotic Consultation Date/Type/Reason Admit Date/Time Jul 29, 2018 at 19:41 Initial Consult Date Date/Time of Note DATE: 08/04/18 TIME: 07:54 24 HR Interval Summary Free Text/Dictation pt how multiple loose stools yesterday only one overnight no N, V, unable to bring up any phlegm no CP or abd pain Exam/Review of Systems Exam Vitals Vital Signs Date Temp Pulse Resp B/P (MAP) Pulse Ox O2 O2 Flow FiO2 Time Delivery Rate 08/04/18 98.0 54 18 94/51 (65) 100 Nasal 2.0 04:02 Cannula Intake and Output 08/03/18 08/03/18 08/04/18 1515:00 23:00 07:00 IntakeIntake Total 50 ml 1080 ml OutputOutput Total 600 ml BalanceBalance 50 ml 480 ml Constitutional: alert, oriented ENMT: mucosa pink and moist Respiratory: clear to auscultation Cardiovascular: regular rate and rhythm Gastrointestinal: soft, non-tender Results Result Diagram: 08/04/18 0652 08/02/18 0601 Results 24hrs Laboratory Tests Test 08/03/18 14:34 08/03/18 20:07 08/03/18 21:56 08/04/18 06:28 Bedside Glucose 172 161 126 123 Test 08/04/18 06:52 White Blood Count 5.6 Red Blood Count 3.48 L Hemoglobin 10.7 L Hematocrit 33.6 L Mean Corpuscular 96.6 Volume Mean Corpuscular 30.7 Hemoglobin Mean Corpuscular 31.8 L Hemoglobin Concent Red Cell 13.7 Distribution Width Platelet Count 433 H Mean Platelet Volume 8.9 Immature 1.100 H Granulocytes % Neutrophils % 67.6 Lymphocytes % 7.1 L Monocytes % 15.1 H Eosinophils % 8.0 H Basophils % 1.1 Nucleated Red Blood 0.0 Cells % Immature 0.060 H Granulocytes # Neutrophils # 3.8 Lymphocytes # 0.4 L Monocytes # 0.9 Eosinophils # 0.5 Basophils # 0.1 Nucleated Red Blood 0.0 Cells # Medications Medication Current Medications Senna (Senokot) 1 tab HS PO Last administered on 08/01/18 20:19; Admin Dose 1 TAB; Start 07/30/18 at 21:00 Magnesium Hydroxide (Milk Of Mag) 30 ml BID PRN PO CONSTIPATION; Start 07/29/18 at 22:00 Lactulose (Enulose) 20 gm DAILY PRN PO CONSTIPATION; Start 07/29/18 at 22:00 Bisacodyl (Dulcolax Supp) 10 mg DAILY PRN [place] CONSTIPATION; Start 07/29/18 at 22:00 Albuterol (Proventil 0.083% (Neb)) 2.5 mg Q4H RESP THERAPY HHN Last administered on 08/03/18 21:07; Admin Dose 2.5 MG; Start 07/30/18 at 01:00 Enoxaparin Sodium (Lovenox) 30 mg DAILY SC Last administered on 08/03/18 08:50; Admin Dose 30 MG; Start 07/30/18 at 09:00 Escitalopram Oxalate (Lexapro) 10 mg DAILY GTB Last administered on 08/03/18 08:45; Admin Dose 10 MG; Start 07/30/18 at 09:00 Hydrogen Peroxide (Hydrogen Peroxide) 1 applic DAILY TOP Last administered on 08/03/18 09:26; Admin Dose 1 APPLIC; Start 07/30/18 at 09:00 Insulin Aspart (Novolog Insulin Pen) NOVOLOG *MODERATE* ALGORITHM Q8 SC Last administered on 08/03/18 14:39; Admin Dose 2 UNIT; Start 07/29/18 at 22:00 Morphine Sulfate (morphine) 2 mg Q4H PRN IV SEVERE PAIN LEVEL 7-10 Last administered on 08/04/18 01:24; Admin Dose 2 MG; Start 07/29/18 at 22:00 Nystatin (Nystatin Cr) 1 applic TID TOP Last administered on 08/03/18 21:57; Admin Dose 1 APPLIC; Start 07/30/18 at 09:00 Ondansetron HCl (Zofran Inj) 4 mg Q4H PRN IV NAUSEA AND/OR VOMITING; Start 07/29/18 at 22:00 Polyethylene Glycol (Miralax) 17 gm DAILY PRN GTB CONSTIPATION; Start 07/29/18 at 22:00 Miscellaneous Information 1 ea NOTE XX ; Start 07/29/18 at 22:30 Glucose (Glutose) 15 gm Q15M PRN PO DECREASED GLUCOSE; Start 07/29/18 at 22:30 Glucose (Glutose) 22.5 gm Q15M PRN PO DECREASED GLUCOSE; Start 07/29/18 at 22:30 Dextrose (D50w Syringe) 25 ml Q15M PRN IV DECREASED GLUCOSE; Start 07/29/18 at 22:30 Dextrose (D50w Syringe) 50 ml Q15M PRN IV DECREASED GLUCOSE; Start 07/29/18 at 22:30 Glucagon (Glucagen) 1 mg Q15M PRN IM DECREASED GLUCOSE; Start 07/29/18 at 22:30 Glucose (Glutose) 15 gm Q15M PRN BUCCAL DECREASED GLUCOSE; Start 07/29/18 at 22:30 Docusate Sodium (Colace Liquid Cup) 100 mg BID GTB Last administered on 08/03/18 08:47; Admin Dose 100 MG; Start 07/30/18 at 09:00 Acetaminophen (Tylenol Liquid) 650 mg Q4H PRN GTB MILD PAIN(1-3)OR ELEVATED TEMP Last administered on 08/02/18 13:33; Admin Dose 650 MG; Start 07/30/18 at 09:30 Multivitamins (Multivitamin) 30 ml DAILY GTB Last administered on 08/03/18 08:44; Admin Dose 30 ML; Start 07/31/18 at 09:00 Ascorbic Acid (Vitamin C) 500 mg DAILY GTB Last administered on 08/03/18 08:45; Admin Dose 500 MG; Start 07/31/18 at 09:00 Collagenase (Santyl) 1 applic BID TOP Last administered on 08/03/18 21:57; Admin Dose 1 APPLIC; Start 07/31/18 at 11:30 Insulin Glargine (Lantus) 27 units DAILY@2000 SC Last administered on 08/03/18 20:08; Admin Dose 27 UNITS; Start 07/31/18 at 20:00 Meropenem/Sodium Chloride 50 ml @ 100 mls/hr Q12 IVPB Last administered on 08/03/18 21:57; Admin Dose 100 MLS/HR; Start 08/02/18 at 17:30 Doxycycline Hyclate (Vibramycin) 100 mg BID GTB Last administered on 08/03/18 21:57; Admin Dose 100 MG; Start 08/02/18 at 21:00 Metoclopramide HCl (Reglan) 10 mg Q6 IV Last administered on 08/04/18 06:29; Admin Dose 10 MG; Start 08/03/18 at 00:00 YENNY LUCIANO MD Aug 04, 2018 07:59
[2018-08-04] MEDS: DOCUSATE SODIUM 10 MG/ML (10ML CUP) GTB SCH ×2 (09:00→21:00)
[2018-08-04] MEDS: ENOXAPARIN 30 MG/0.3 ML SYG SC SCH (09:17)
[2018-08-04] MEDS: GUAIFENESIN 20 MG/ML 5ML CUP GTB SCH ×4 (09:18→21:35)
[2018-08-04] MEDS: DOXYCYCLINE 100 MG TAB GTB SCH ×2 (09:18→21:36)
[2018-08-04] MEDS: ASCORBIC ACID 500 MG TAB GTB SCH (09:18)
[2018-08-04] MEDS: ESCITALOPRAM 10 MG TAB GTB SCH (09:18)
[2018-08-04] MEDS: MULTIVITAMINS 30 ML CUP GTB SCH ×2 (09:18→09:45)
[2018-08-04] MEDS: MEROPENEM 1 GM/50ML(PMX) 50 ML IVPB SCH ×2 (09:25→21:37)
[2018-08-04] MEDS: L ACIDOPHIL/B LACTIS/B LONGUM CAPSULE GTB SCH ×2 (10:30→21:36)
--- NOTE | 2018-08-04 11:50 | PN ---
Date/Time of Note Date/Time of Note DATE: 08/04/18 TIME: 11:49 Subjective Comfortable Objective Vital Signs Date Temp Pulse Resp B/P (MAP) Pulse Ox O2 O2 Flow FiO2 Time Delivery Rate 08/04/18 77 18 96 Nasal 2.0 08:06 Cannula 08/04/18 97.7 99/56 (70) 07:00 Intake and Output 08/03/18 08/03/18 08/04/18 1414:59 22:59 06:59 IntakeIntake Total 50 ml 1080 ml OutputOutput Total 600 ml BalanceBalance 50 ml 480 ml Exam min assist transfer min ambulation 75 feet Results/Medications Result Diagram: 08/04/18 0652 08/02/18 0601 Results 24 hrs Laboratory Tests Test 08/03/18 14:34 08/03/18 20:07 08/03/18 21:56 08/04/18 06:28 Bedside Glucose 172 161 126 123 Test 08/04/18 06:52 White Blood Count 5.6 Red Blood Count 3.48 L Hemoglobin 10.7 L Hematocrit 33.6 L Mean Corpuscular 96.6 Volume Mean Corpuscular 30.7 Hemoglobin Mean Corpuscular 31.8 L Hemoglobin Concent Red Cell 13.7 Distribution Width Platelet Count 433 H Mean Platelet Volume 8.9 Immature 1.100 H Granulocytes % Neutrophils % 67.6 Segmented 34 L Neutrophils % (Manual) Band Neutrophils % 34 H (Manual) Lymphocytes % 7.1 L Lymphocytes % 10 L (Manual) Reactive Lymphocytes 1 H % (Manual) Monocytes % 15.1 H Monocytes % (Manual) 12 H Eosinophils % 8.0 H Eosinophils % 5 (Manual) Basophils % 1.1 Basophils % (Manual) 4 H Nucleated Red Blood 0.0 Cells % Immature 0.060 H Granulocytes # Neutrophils # 3.8 Neutrophils # 2.0 (Manual) Band Neutrophils # 1.9 H Lymphocytes (Manual) 0.5 L Lymphocytes # 0.4 L Reactive Lymphocytes 0.0 # Monocytes # 0.9 Monocytes # (Manual) 0.6 Eosinophils # 0.5 Basophils # 0.1 Basophils # (Manual) 0.2 H Nucleated Red Blood 0.0 Cells # Platelet Estimate NORMAL Polychromasia 3+ Medications Current Medications Senna (Senokot) 1 tab HS PO Last administered on 08/01/18at 20:19; Admin Dose 1 TAB; Start 07/30/18 at 21:00 Magnesium Hydroxide (Milk Of Mag) 30 ml BID PRN PO CONSTIPATION; Start 07/29/18 at 22:00 Lactulose (Enulose) 20 gm DAILY PRN PO CONSTIPATION; Start 07/29/18 at 22:00 Bisacodyl (Dulcolax Supp) 10 mg DAILY PRN [place] CONSTIPATION; Start 07/29/18 at 22:00 Albuterol (Proventil 0.083% (Neb)) 2.5 mg Q4H RESP THERAPY HHN Last administered on 08/04/18 08:04; Admin Dose 2.5 MG; Start 07/30/18 at 01:00 Enoxaparin Sodium (Lovenox) 30 mg DAILY SC Last administered on 08/04/18 09:17; Admin Dose 30 MG; Start 07/30/18 at 09:00 Escitalopram Oxalate (Lexapro) 10 mg DAILY GTB Last administered on 08/04/18 09:18; Admin Dose 10 MG; Start 07/30/18 at 09:00 Hydrogen Peroxide (Hydrogen Peroxide) 1 applic DAILY TOP Last administered on 08/03/18 09:26; Admin Dose 1 APPLIC; Start 07/30/18 at 09:00 Insulin Aspart (Novolog Insulin Pen) NOVOLOG *MODERATE* ALGORITHM Q8 SC Last administered on 08/03/18 14:39; Admin Dose 2 UNIT; Start 07/29/18 at 22:00 Morphine Sulfate (morphine) 2 mg Q4H PRN IV SEVERE PAIN LEVEL 7-10 Last administered on 08/04/18 08:40; Admin Dose 2 MG; Start 07/29/18 at 22:00 Nystatin (Nystatin Cr) 1 applic TID TOP Last administered on 08/03/18 21:57; Admin Dose 1 APPLIC; Start 07/30/18 at 09:00 Ondansetron HCl (Zofran Inj) 4 mg Q4H PRN IV NAUSEA AND/OR VOMITING; Start 07/29/18 at 22:00 Polyethylene Glycol (Miralax) 17 gm DAILY PRN GTB CONSTIPATION; Start 07/29/18 at 22:00 Miscellaneous Information 1 ea NOTE XX ; Start 07/29/18 at 22:30 Glucose (Glutose) 15 gm Q15M PRN PO DECREASED GLUCOSE; Start 07/29/18 at 22:30 Glucose (Glutose) 22.5 gm Q15M PRN PO DECREASED GLUCOSE; Start 07/29/18 at 22:30 Dextrose (D50w Syringe) 25 ml Q15M PRN IV DECREASED GLUCOSE; Start 07/29/18 at 22:30 Dextrose (D50w Syringe) 50 ml Q15M PRN IV DECREASED GLUCOSE; Start 07/29/18 at 22:30 Glucagon (Glucagen) 1 mg Q15M PRN IM DECREASED GLUCOSE; Start 07/29/18 at 22:30 Glucose (Glutose) 15 gm Q15M PRN BUCCAL DECREASED GLUCOSE; Start 07/29/18 at 22:30 Docusate Sodium (Colace Liquid Cup) 100 mg BID GTB Last administered on 08/03/18 08:47; Admin Dose 100 MG; Start 07/30/18 at 09:00 Acetaminophen (Tylenol Liquid) 650 mg Q4H PRN GTB MILD PAIN(1-3)OR ELEVATED TEMP Last administered on 08/02/18 13:33; Admin Dose 650 MG; Start 07/30/18 at 09:30 Multivitamins (Multivitamin) 30 ml DAILY GTB Last administered on 08/04/18 09:45; Admin Dose 30 ML; Start 07/31/18 at 09:00 Ascorbic Acid (Vitamin C) 500 mg DAILY GTB Last administered on 08/04/18 09:18; Admin Dose 500 MG; Start 07/31/18 at 09:00 Collagenase (Santyl) 1 applic BID TOP Last administered on 08/03/18 21:57; Admin Dose 1 APPLIC; Start 07/31/18 at 11:30 Insulin Glargine (Lantus) 27 units DAILY@2000 SC Last administered on 08/03/18 20:08; Admin Dose 27 UNITS; Start 07/31/18 at 20:00 Meropenem/Sodium Chloride 50 ml @ 100 mls/hr Q12 IVPB Last administered on 08/04/18 09:25; Admin Dose 100 MLS/HR; Start 08/02/18 at 17:30 Doxycycline Hyclate (Vibramycin) 100 mg BID GTB Last administered on 08/04/18 09:18; Admin Dose 100 MG; Start 08/02/18 at 21:00 Metoclopramide HCl (Reglan) 10 mg Q6 IV Last administered on 08/04/18at 06:29; Admin Dose 10 MG; Start 08/03/18 at 00:00 Guaifenesin (Robitussin Liquid Cup) 200 mg Q4H GTB Last administered on 08/04/18at 09:18; Admin Dose 200 MG; Start 08/04/18 at 08:00 Lactobacillus Acidophilus (Florajen3 Capsule) 1 each BID GTB Last administered on 08/04/18at 10:30; Admin Dose 1 EACH; Start 08/04/18 at 09:00 Assessment/Plan Additional Assessment/Plan Rehab- Toxic metabolic encephalopathy. Progressing with treatment plan diabetes-monitor Pneumonia-antibiotics per ID History of tongue cancer, status post right hemiglossectomy. Dysphagia, continue n.p.o. Integ- continue wound care for neck wound GAYLE COLE MD Aug 04, 2018 11:50
[2018-08-04] MEDS ORDERED: HYDROmorphONE 1 MG/ML SYG IV ONE (12:30)
[2018-08-04] MEDS: HYDROGEN PEROXIDE 118 ML TOP SCH (12:43)
[2018-08-04] MEDS: COLLAGENASE 5 GM (UD JAR) TOP SCH ×2 (12:43→21:38)
[2018-08-04] MEDS: NYSTATIN 15 GM CR TOP SCH ×3 (12:43→21:37)
[2018-08-04] MEDS: HYDROmorphONE 1 MG/ML SYG IV PRN ×3 (12:44→18:56)
[2018-08-04 14:00] VITALS: BP 86/52; PULSE 90; RESP 18
--- NOTE | 2018-08-04 18:57 | PN ---
DATE: 08/04/2018 SUBJECTIVE: The patient seems to be increasing in strength. He has been able to ambulate. Denies shortness of breath or cough. He has not had any further episodes of emesis. OBJECTIVE: GENERAL: The patient is a well-developed, chronically ill-appearing and cachectic male in no acute d istress. VITAL SIGNS: Temperature 98, pulse 75 per minute and regular, respirations 18, blood pressure is 86/ 52. Pulse oximetry is 96% on 2 liters by nasal cannula. SKIN: No ecchymosis, no petechiae or rashes. HEENT: Normocephalic. No evidence of trauma. Pupils equal, round, react to light and accommodation . Sclerae nonicteric. Oral mucosa is moist without lesions. Tongue is well papillated. There is e vidence of hemiglossectomy. There is nasal oxygen in place. NECK: No jugular venous distention or thyroid enlargement. There are necrotic ulcerated areas overl jaime the left carotid. These are decreasing in size. CHEST: Decreased breath sounds on the right side. There are some scattered rhonchi. HEART: Regular sinus rhythm, no S3, S4 or murmurs. No rubs. ABDOMEN: Soft, no masses, no ascites. G-tube in place. G-tube feedings infusing at 50 mL per hour. No succussion splash. EXTREMITIES: No clubbing, edema or cyanosis. No palpable cords or Homans sign. NEUROLOGIC: Normal except for diffuse weakness. White count 5600 with an absolute neutrophil count of 3800, hemoglobin 10.7, hematocrit 33.6 and plat elet count 433,000. ASSESSMENT: 1. 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 2. Malnutrition. 3. Multilobar pneumonia. The patient seems to be slowly improving. We will continue tube feedings at 50 mL per hour. The patient is tolerating metoclopramide well. He has had no evidence of extrapyramidal reaction. Dictated By: PEEWEE DONALD MD SR/NTS Conf#: [id number] DID#: [id number] CC: DANNY GUEVARA MD; GAYLE COLE MD;*End*
--- NOTE | 2018-08-04 19:03 | PN ---
DATE: 08/04/2018 SUBJECTIVE: The patient is complaining of pain earlier, improved with a dose of Dilaudid, participat ing well with physical therapy. He has a cough, but is unable to expectorate. PHYSICAL EXAMINATION: VITAL SIGNS: Temperature 97.7, blood pressure 99/56, O2 sats 100% on 2 liters nasal cannula. CHEST: Clear anteriorly. HEART: S1, S2 heard, no definite gallops. EXTREMITIES: No edema. LABORATORY DATA: WBC 5.6, hematocrit 33.6, platelet count is 433,000. Blood glucose levels in the n ormal glycemic range. IMPRESSION: 1. Bilateral pneumonia. The patient is unable to expectorate. 2. Diabetes mellitus type 2, well controlled. 3. Squamous cell cancer of the tongue status post left hemiglossectomy and left neck radical dissect ion. 4. Underlying major depression, improving. 5. Severe debility with decreased functional status, improving. PLAN: We will start the patient on percussion by respiratory therapy to mobilize secretions. Contin ue IV antibiotics and rehabilitation per Dr. Watts. Dictated By: DANNY GUEVARA MD SR/NTS Conf#: [id number] DID#: [id number] CC: GAYLE COLE MD;*EndCC*
[2018-08-04 19:58] VITALS: BP 113/62; PULSE 85; RESP 18
[2018-08-04] MEDS: SENNA TAB PO SCH (21:00)
[2018-08-04] MEDS: INSULIN GLARGINE [LANTus] (100 UNITS/ML) SYG SC SCH (21:49)
[2018-08-05] MEDS: ALBUTEROL 0.083% (NEB) 2.5 MG/3 ML AMP HHN SCH ×7 (00:42→20:31)
--- NOTE | 2018-08-05 01:19 | CONS ---
DATE OF ADMISSION: 07/29/2018 DATE OF CONSULTATION: 08/04/2018 TYPE OF CONSULTATION: Psychological. REFERRING PHYSICIAN: Gayle Ansari MD. CONSULTING PSYCHOLOGIST: Иван Carrillo, PhD. REASON FOR CONSULTATION: This consultation was requested by Dr. Stefanie Ansari in order to evaluate t he cognitive and emotional functioning of this patient related to his present medical condition. HISTORY OF PRESENT ILLNESS: The patient is an 83-year-old male. He was admitted to the hospital wit h significant weakness, loss of appetite and severe hypoglycemia. The patient was noted to have sign ificant pneumonia. There was also a metabolic encephalopathy and dysphagia requiring a G-tube placem ent. The patient was now cleared medically and then sent to the acute rehabilitation unit for acute multidisciplinary rehabilitation. The patient is motivated to get better and does want to return kee as soon as possible. FAMILY AND SOCIAL HISTORY: [facility] [place] with his . The pat jt wants to return there after discharge. The patient's was present during the consultation w ith the patient's permission. MEDICATIONS: The patient is currently on Lexapro 10 mg daily. SUBSTANCE USE: The patient reports that he does not smoke. The patient reports that he does not use any alcohol or other drugs. MENTAL STATUS EXAMINATION: APPEARANCE: The patient was seen in bed. He is on oxygen. The patient is of average height and leonila y thin. The patient is right-handed. BEHAVIOR: The patient was cooperative during the consultation. The patient did attempt to answer al l questions presented to him by the interviewer. The patient spoke in a very soft voice and it was d ifficult to understand some of his answers. MOOD AND AFFECT: The patient's mood appears to be depressed. Affect does appear to be just slightly anxious. PERCEPTION: The patient reports no hallucinations or delusions. The patient was alert to person, pl jenifer, situation and time. MEMORY AND COGNITION: The patient's memory and cognition were basically intact given his present age and medical condition. He was able to remember recent and remote events. The patient was able to s orr the name of the hospital. The patient was able to state the month and the year. The patient wa s able to state the President of [facility], he could not remember, who the governor of the [facility] is, he was able to remember, who the mayor of [facility] is. The patient was unable to s angeline "world" backwards. He spelled it "lrorw." He was able to do 2 serial 7 subtractions from 100. On his 3rd try, he came up with 77, but not directed. Overall, given everything that is going on wi th him medically and his age, he is functioning at least adequately cognitively. INTELLIGENCE: Intelligence appears to fall in the average range. INSIGHT: Fair. JUDGMENT: Fair. THOUGHT CONTENT: The patient is concerned about his present medical condition. The patient does wan t to get better and is motivated to try to do whatever he can to increase his health, so that he can be discharged and go home. The patient does want to go home as soon as possible. DISCUSSION: The patient can likely benefit from some cognitive/behavioral psychotherapy while he is on the unit. Psychotherapy would help him focus on his depression well as dealing with this light is sues with cognition. It appears that the patient might benefit from some cognitive training and in g a memory book to help him with his cognitions while he is in the program. DIAGNOSTIC IMPRESSION: F33.1, major depressive disorder, recurrent, moderate. Thank you very much, Dr. Stefanie Ansari, for referring this individual. Please do not hesitate to luciano zelaya if you have additional questions. Dictated By: ИВАН CARRILLO PHD URVASHI/MINI Conf#: [id number] DID#: [id number] CC: GAYLE ANSARI MD; DANNY GUEVARA MD;*[facility]*
[2018-08-05] MEDS: HYDROmorphONE 1 MG/ML SYG IV PRN (01:46)
[2018-08-05] MEDS: METOCLOPRAMIDE 10 MG INJ IV SCH ×4 (01:50→17:00)
[2018-08-05 02:00] VITALS: BP 106/67; PULSE 78; RESP 18
[2018-08-05] MEDS: GUAIFENESIN 20 MG/ML 5ML CUP GTB SCH ×6 (04:00→21:28)
[2018-08-05] MEDS: INSULIN ASPART [NOVOLOG] 3 ML PEN SC SCH ×3 (06:00→21:37)
[2018-08-05 07:30] VITALS: BP 103/59; PULSE 69; RESP 20
[2018-08-05] MEDS: DOCUSATE SODIUM 10 MG/ML (10ML CUP) GTB SCH ×2 (09:00→21:27)
[2018-08-05] MEDS: DOXYCYCLINE 100 MG TAB GTB SCH ×2 (09:05→21:28)
[2018-08-05] MEDS: ASCORBIC ACID 500 MG TAB GTB SCH (09:05)
[2018-08-05] MEDS: COLLAGENASE 5 GM (UD JAR) TOP SCH ×2 (09:05→21:29)
[2018-08-05] MEDS: ESCITALOPRAM 10 MG TAB GTB SCH (09:05)
[2018-08-05] MEDS: MULTIVITAMINS 30 ML CUP GTB SCH (09:05)
[2018-08-05] MEDS: L ACIDOPHIL/B LACTIS/B LONGUM CAPSULE GTB SCH ×2 (09:06→21:28)
[2018-08-05] MEDS: NYSTATIN 15 GM CR TOP SCH ×3 (09:07→21:29)
[2018-08-05] MEDS: HYDROGEN PEROXIDE 118 ML TOP SCH (09:07)
--- NOTE | 2018-08-05 09:08 | PN ---
Date/Time of Note Date/Time of Note DATE: 08/05/18 TIME: 09:08 Objective Vital Signs Date Temp Pulse Resp B/P (MAP) Pulse Ox O2 O2 Flow FiO2 Time Delivery Rate 08/05/18 97.8 78 18 106/67 97 Room Air 02:00 (80) 08/05/18 2.0 00:42 Intake and Output 08/04/18 08/04/18 08/05/18 1515:00 23:00 07:00 IntakeIntake Total 50 ml 850 ml 800 ml OutputOutput Total 400 ml BalanceBalance 50 ml 450 ml 800 ml Exam INTERDISCIPLINARY TEAM CONFERENCE Attended by PT, OT, ST, Inspector Eyeglass, Social Work, Rehabilitation Nursing, Mechanical Engineering Intern and Clerical Support SpecialistManager Product Marketing Exam: Pulm-cta Abd-soft BOWEL- Cont BLADDER-Cont SKIN- neck wound OT- DRESSING-cga BATHING-cga TOILETING-cga PT- BED MOBILITY-cga TRANSFERS-cga AMBULATION-cga 100 feet SPEECH- COGNITION- Improving with interdisciplinary approach. Cognition approaching baseline Dysphagia- A/P- Interdisciplinary team conference held today. Please see interdisciplinary sheet. Working toward d.c. on 08/12 with post discharge follow up of physical therapy, occupational therapy. Results/Medications Result Diagram: 08/04/18 0652 08/02/18 0601 Results 24 hrs Laboratory Tests Test 08/04/18 15:35 08/04/18 21:34 08/05/18 07:00 Bedside Glucose 146 158 153 Medications Current Medications Senna (Senokot) 1 tab HS PO Last administered on 08/01/18at 20:19; Admin Dose 1 TAB; Start 07/30/18 at 21:00 Magnesium Hydroxide (Milk Of Mag) 30 ml BID PRN PO CONSTIPATION; Start 07/29/18 at 22:00 Lactulose (Enulose) 20 gm DAILY PRN PO CONSTIPATION; Start 07/29/18 at 22:00 Bisacodyl (Dulcolax Supp) 10 mg DAILY PRN [place] CONSTIPATION; Start 07/29/18 at 22:00 Albuterol (Proventil 0.083% (Neb)) 2.5 mg Q4H RESP THERAPY HHN Last administered on 08/05/18at 00:42; Admin Dose 2.5 MG; Start 07/30/18 at 01:00 Enoxaparin Sodium (Lovenox) 30 mg DAILY SC Last administered on 08/04/18 09:17; Admin Dose 30 MG; Start 07/30/18 at 09:00 Escitalopram Oxalate (Lexapro) 10 mg DAILY GTB Last administered on 08/04/18 09:18; Admin Dose 10 MG; Start 07/30/18 at 09:00 Hydrogen Peroxide (Hydrogen Peroxide) 1 applic DAILY TOP Last administered on 08/04/18 12:43; Admin Dose 1 APPLIC; Start 07/30/18 at 09:00 Insulin Aspart (Novolog Insulin Pen) NOVOLOG *MODERATE* ALGORITHM Q8 SC Last administered on 08/04/18 15:36; Admin Dose 2 UNIT; Start 07/29/18 at 22:00 Nystatin (Nystatin Cr) 1 applic TID TOP Last administered on 08/04/18 21:37; Admin Dose 1 APPLIC; Start 07/30/18 at 09:00 Ondansetron HCl (Zofran Inj) 4 mg Q4H PRN IV NAUSEA AND/OR VOMITING; Start 07/29/18 at 22:00 Polyethylene Glycol (Miralax) 17 gm DAILY PRN GTB CONSTIPATION; Start 07/29/18 at 22:00 Miscellaneous Information 1 ea NOTE XX ; Start 07/29/18 at 22:30 Glucose (Glutose) 15 gm Q15M PRN PO DECREASED GLUCOSE; Start 07/29/18 at 22:30 Glucose (Glutose) 22.5 gm Q15M PRN PO DECREASED GLUCOSE; Start 07/29/18 at 22:30 Dextrose (D50w Syringe) 25 ml Q15M PRN IV DECREASED GLUCOSE; Start 07/29/18 at 22:30 Dextrose (D50w Syringe) 50 ml Q15M PRN IV DECREASED GLUCOSE; Start 07/29/18 at 22:30 Glucagon (Glucagen) 1 mg Q15M PRN IM DECREASED GLUCOSE; Start 07/29/18 at 22:30 Glucose (Glutose) 15 gm Q15M PRN BUCCAL DECREASED GLUCOSE; Start 07/29/18 at 22:30 Docusate Sodium (Colace Liquid Cup) 100 mg BID GTB Last administered on 08/03/18 08:47; Admin Dose 100 MG; Start 07/30/18 at 09:00 Acetaminophen (Tylenol Liquid) 650 mg Q4H PRN GTB MILD PAIN(1-3)OR ELEVATED TEMP Last administered on 08/02/18 13:33; Admin Dose 650 MG; Start 07/30/18 at 09:30 Multivitamins (Multivitamin) 30 ml DAILY GTB Last administered on 08/04/18 09:45; Admin Dose 30 ML; Start 07/31/18 at 09:00 Ascorbic Acid (Vitamin C) 500 mg DAILY GTB Last administered on 08/04/18 09:18; Admin Dose 500 MG; Start 07/31/18 at 09:00 Collagenase (Santyl) 1 applic BID TOP Last administered on 08/04/18 21:38; Admin Dose 1 APPLIC; Start 07/31/18 at 11:30 Insulin Glargine (Lantus) 27 units DAILY@2000 SC Last administered on 08/04/18 21:49; Admin Dose 27 UNITS; Start 07/31/18 at 20:00 Meropenem/Sodium Chloride 50 ml @ 100 mls/hr Q12 IVPB Last administered on 08/04/18 21:37; Admin Dose 100 MLS/HR; Start 08/02/18 at 17:30 Doxycycline Hyclate (Vibramycin) 100 mg BID GTB Last administered on 08/04/18 21:36; Admin Dose 100 MG; Start 08/02/18 at 21:00 Metoclopramide HCl (Reglan) 10 mg Q6 IV Last administered on 08/05/18 06:57; Admin Dose 10 MG; Start 08/03/18 at 00:00 Guaifenesin (Robitussin Liquid Cup) 200 mg Q4H GTB Last administered on 07/11 21:35; Admin Dose 200 MG; Start 08/04/18 at 08:00 Lactobacillus Acidophilus (Florajen3 Capsule) 1 each BID GTB Last administered on 08/04/18 21:36; Admin Dose 1 EACH; Start 08/04/18 at 09:00 Hydromorphone HCl (Dilaudid) 1 mg Q3H PRN IV SEVERE PAIN LEVEL 7-10 Last administered on 08/05/18 01:46; Admin Dose 1 MG; Start 08/04/18 at 12:30 GAYLE COLE MD Aug 05, 2018 09:08
[2018-08-05] MEDS: ENOXAPARIN 30 MG/0.3 ML SYG SC SCH (09:28)
[2018-08-05] MEDS: MEROPENEM 1 GM/50ML(PMX) 50 ML IVPB SCH ×2 (09:43→21:38)
[2018-08-05 14:00] VITALS: BP 94/52; PULSE 72; RESP 20
--- NOTE | 2018-08-05 15:16 | PN ---
DATE: 08/05/2018 SUBJECTIVE: The patient is more awake and responsive, has no cough. VITAL SIGNS: Temperature 97.7, blood pressure 103/59, O2 saturation 100% on 2 liters nasal cannula. CHEST: Clinically clear anteriorly. HEART: S1, S2 with no definite gallops. EXTREMITIES: No edema. Patient presently getting hand-held nebulizer treatment and gentle percussio n. Dr. Carrillo's psychological consultation greatly appreciated. IMPRESSION: 1. Bilateral pneumonia, clinically improving. 2. Diabetes mellitus type 2, well controlled. 3. 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 4. Underlying major depression, improving. 5. Severe debility with decreased functional status. Continues to improve. PLAN: Continue rehabilitation recommendations per Dr. Womack. Speech therapy in progress, al hiram with respiratory therapy. We will repeat a chest x-ray tomorrow. Dictated By: DANNY GUEVARA MD SR/NTS Conf#: [id number] DID#: [id number] CC: GAYLE COLE MD;*EndCC*
[2018-08-05] MEDS ORDERED: PENDING SANTYL ORDER FOR WOUND CARE XX PRN (15:30)
[2018-08-05 19:54] VITALS: BP 110/65; PULSE 80; RESP 18
[2018-08-05] MEDS: SENNA TAB PO SCH (21:29)
[2018-08-05] MEDS: INSULIN GLARGINE [LANTus] (100 UNITS/ML) SYG SC SCH (21:38)
[2018-08-06] MEDS: GUAIFENESIN 20 MG/ML 5ML CUP GTB SCH ×7 (00:55→23:19)
[2018-08-06] MEDS: METOCLOPRAMIDE 10 MG INJ IV SCH ×5 (00:56→23:19)
[2018-08-06] MEDS: ALBUTEROL 0.083% (NEB) 2.5 MG/3 ML AMP HHN SCH ×7 (01:34→21:09)
[2018-08-06 02:00] VITALS: BP 106/61; PULSE 75; RESP 18
[2018-08-06] MEDS: INSULIN ASPART [NOVOLOG] 3 ML PEN SC SCH ×3 (05:33→21:49)
[2018-08-06 08:24] VITALS: BP 112/57; PULSE 68; RESP 18
[2018-08-06] MEDS: HYDROGEN PEROXIDE 118 ML TOP SCH (09:00)
[2018-08-06] MEDS: DOCUSATE SODIUM 10 MG/ML (10ML CUP) GTB SCH ×2 (09:00→20:35)
[2018-08-06] MEDS: ACETAMINOPHEN 650MG/20.3ML CUP GTB PRN (09:05)
[2018-08-06] MEDS: DOXYCYCLINE 100 MG TAB GTB SCH ×2 (09:10→20:35)
[2018-08-06] MEDS: L ACIDOPHIL/B LACTIS/B LONGUM CAPSULE GTB SCH ×2 (09:10→21:41)
[2018-08-06] MEDS: ESCITALOPRAM 10 MG TAB GTB SCH (09:10)
[2018-08-06] MEDS: ASCORBIC ACID 500 MG TAB GTB SCH (09:10)
[2018-08-06] MEDS: ENOXAPARIN 30 MG/0.3 ML SYG SC SCH (09:13)
--- NOTE | 2018-08-06 09:18 | CONS ---
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 Ruiz and will order chest CT on augmentin, if CT still shows infiltrates will change antibiotics repeat procalcitonin in a.m. 08/04 - merrem/doxy started yesterday CT chest showed increase in infiltrates will order mucinex 200mg q4 hours via G-tube have told nurse to be sure that speech therapy comes to help with managing his oral secretions if pt remains unable to bring up phlegm, consider chest physiotherapy 08/06 - doing well, procalcitonin has improved continue with merrem/doxy thru morning of 08/10 2) diarrhea meds started later 08/02 continue to monitor start probiotic 08/06 - improved Consultation Date/Type/Reason Admit Date/Time Jul 29, 2018 at 19:41 Initial Consult Date Date/Time of Note DATE: 08/06/18 TIME: 09:16 24 HR Interval Summary Free Text/Dictation doing well breathing is ok no N, V, D Exam/Review of Systems Exam Vitals Vital Signs Date Temp Pulse Resp B/P (MAP) Pulse Ox O2 O2 Flow FiO2 Time Delivery Rate 08/06/18 97.5 68 18 112/57 99 08:24 (75) 08/06/18 Nasal 2.0 05:56 Cannula Intake and Output 08/05/18 08/05/18 08/06/18 1515:00 23:00 07:00 IntakeIntake Total 600 ml 50 ml 900 ml OutputOutput Total 1 ml BalanceBalance 599 ml 50 ml 900 ml Constitutional: alert, oriented Eyes: nl sclera ENMT: mucosa pink and moist Respiratory: clear to auscultation Cardiovascular: regular rate and rhythm Gastrointestinal: soft, non-tender Results Result Diagram: 08/06/18 0626 08/02/18 0601 Results 24hrs Laboratory Tests Test 08/05/18 14:20 08/05/18 21:27 08/06/18 05:30 08/06/18 06:26 Bedside Glucose 192 195 145 White Blood Count 5.7 Red Blood Count 3.31 L Hemoglobin 10.0 L Hematocrit 31.6 L Mean Corpuscular 95.5 Volume Mean Corpuscular 30.2 Hemoglobin Mean Corpuscular 31.6 L Hemoglobin Concent Red Cell 13.5 Distribution Width Platelet Count 363 Mean Platelet Volume 9.0 Immature 0.700 H Granulocytes % Neutrophils % 67.1 Lymphocytes % 8.4 L Monocytes % 15.4 H Eosinophils % 7.2 H Basophils % 1.2 Nucleated Red Blood 0.0 Cells % Immature 0.040 H Granulocytes # Neutrophils # 3.9 Lymphocytes # 0.5 L Monocytes # 0.9 Eosinophils # 0.4 Basophils # 0.1 Nucleated Red Blood 0.0 Cells # Procalcitonin 0.22 H Medications Medication Current Medications Senna (Senokot) 1 tab HS PO Last administered on 08/05/18 21:29; Admin Dose 1 TAB; Start 07/30/18 at 21:00 Magnesium Hydroxide (Milk Of Mag) 30 ml BID PRN PO CONSTIPATION; Start 07/29/18 at 22:00 Lactulose (Enulose) 20 gm DAILY PRN PO CONSTIPATION; Start 07/29/18 at 22:00 Bisacodyl (Dulcolax Supp) 10 mg DAILY PRN [place] CONSTIPATION; Start 07/29/18 at 22:00 Albuterol (Proventil 0.083% (Neb)) 2.5 mg Q4H RESP THERAPY HHN Last administered on 08/06/18 05:56; Admin Dose 2.5 MG; Start 07/30/18 at 01:00 Enoxaparin Sodium (Lovenox) 30 mg DAILY SC Last administered on 08/05/18 09:28; Admin Dose 30 MG; Start 07/30/18 at 09:00 Escitalopram Oxalate (Lexapro) 10 mg DAILY GTB Last administered on 08/05/18 09:05; Admin Dose 10 MG; Start 07/30/18 at 09:00 Hydrogen Peroxide (Hydrogen Peroxide) 1 applic DAILY TOP Last administered on 08/05/18 09:07; Admin Dose 1 APPLIC; Start 07/30/18 at 09:00 Insulin Aspart (Novolog Insulin Pen) NOVOLOG *MODERATE* ALGORITHM Q8 SC Last administered on 08/06/18 05:33; Admin Dose 2 UNIT; Start 07/29/18 at 22:00 Nystatin (Nystatin Cr) 1 applic TID TOP Last administered on 08/05/18at 21:29; Admin Dose 1 APPLIC; Start 07/30/18 at 09:00 Ondansetron HCl (Zofran Inj) 4 mg Q4H PRN IV NAUSEA AND/OR VOMITING; Start 07/29/18 at 22:00 Polyethylene Glycol (Miralax) 17 gm DAILY PRN GTB CONSTIPATION; Start 07/29/18 at 22:00 Miscellaneous Information 1 ea NOTE XX ; Start 07/29/18 at 22:30 Glucose (Glutose) 15 gm Q15M PRN PO DECREASED GLUCOSE; Start 07/29/18 at 22:30 Glucose (Glutose) 22.5 gm Q15M PRN PO DECREASED GLUCOSE; Start 07/29/18 at 22:30 Dextrose (D50w Syringe) 25 ml Q15M PRN IV DECREASED GLUCOSE; Start 07/29/18 at 22:30 Dextrose (D50w Syringe) 50 ml Q15M PRN IV DECREASED GLUCOSE; Start 07/29/18 at 22:30 Glucagon (Glucagen) 1 mg Q15M PRN IM DECREASED GLUCOSE; Start 07/29/18 at 22:30 Glucose (Glutose) 15 gm Q15M PRN BUCCAL DECREASED GLUCOSE; Start 07/29/18 at 22:30 Docusate Sodium (Colace Liquid Cup) 100 mg BID GTB Last administered on 08/05/18at 21:27; Admin Dose 100 MG; Start 07/30/18 at 09:00 Acetaminophen (Tylenol Liquid) 650 mg Q4H PRN GTB MILD PAIN(1-3)OR ELEVATED TEMP Last administered on 08/02/18at 13:33; Admin Dose 650 MG; Start 07/30/18 at 09:30 Multivitamins (Multivitamin) 30 ml DAILY GTB Last administered on 08/05/18at 09:05; Admin Dose 30 ML; Start 07/31/18 at 09:00 Ascorbic Acid (Vitamin C) 500 mg DAILY GTB Last administered on 08/05/18at 09:05; Admin Dose 500 MG; Start 07/31/18 at 09:00 Collagenase (Santyl) 1 applic BID TOP Last administered on 08/05/18at 21:29; Admin Dose 1 APPLIC; Start 07/31/18 at 11:30 Insulin Glargine (Lantus) 27 units DAILY@2000 SC Last administered on 08/05/18 21:38; Admin Dose 27 UNITS; Start 07/31/18 at 20:00 Meropenem/Sodium Chloride 50 ml @ 100 mls/hr Q12 IVPB Last administered on 08/05/18 21:38; Admin Dose 100 MLS/HR; Start 08/02/18 at 17:30 Doxycycline Hyclate (Vibramycin) 100 mg BID GTB Last administered on 08/05/18 21:28; Admin Dose 100 MG; Start 08/02/18 at 21:00 Metoclopramide HCl (Reglan) 10 mg Q6 IV Last administered on 08/06/18 05:24; Admin Dose 10 MG; Start 08/03/18 at 00:00 Guaifenesin (Robitussin Liquid Cup) 200 mg Q4H GTB Last administered on 08/06 05:24; Admin Dose 200 MG; Start 08/04/18 at 08:00 Lactobacillus Acidophilus (Florajen3 Capsule) 1 each BID GTB Last administered on 08/05/18 21:28; Admin Dose 1 EACH; Start 08/04/18 at 09:00 Hydromorphone HCl (Dilaudid) 1 mg Q3H PRN IV SEVERE PAIN LEVEL 7-10 Last administered on 08/05/18 01:46; Admin Dose 1 MG; Start 08/04/18 at 12:30 Miscellaneous Information (Pending Santyl Order For Wound Care) This patient kilgore... PRN PRN XX WOUND CARE; Start 08/05/18 at 15:30 YENNY LUCIANO MD Aug 06, 2018 09:18
[2018-08-06] MEDS: MEROPENEM 1 GM/50ML(PMX) 50 ML IVPB SCH ×2 (09:21→20:35)
[2018-08-06] MEDS: NYSTATIN 15 GM CR TOP SCH ×3 (09:29→21:38)
[2018-08-06] MEDS: COLLAGENASE 5 GM (UD JAR) TOP SCH ×2 (09:29→20:35)
--- NOTE | 2018-08-06 10:42 | PN ---
DATE: 08/06/2018 SUBJECTIVE: The patient has no new complaints. He has had no cough. No nausea or vomiting. Tolera ting the tube feeding well. Has no complaints of pain or discomfort in the left lateral neck where radiation had been administere d. OBJECTIVE: GENERAL: The patient is a well-developed, but chronically ill-appearing and thin male who is in no a cute distress. VITAL SIGNS: Temperature 97.5 orally, pulse 68 per minute and regular, respirations 18, blood pressu re is 112/57, pulse oximetry 99% on 2 liters via nasal cannula. SKIN: No ecchymosis, no petechiae or rashes. HEENT: Normocephalic. No evidence of trauma. The pupils are equal, round, reactive to light and ac commodation. Sclerae nonicteric. Oral mucosa is moist without lesions. Tongue is well papillated. There is no gingival hyperplasia, no hypertrophy of Waldeyer's ring. There is nasal oxygen in place . NECK: Supple. No jugular venous distention or thyroid enlargement. There are nodules on the left l ateral neck, which actually continued to improve. There is less nodularity and necrosis seems to hav e resolved. It is not tender to touch. There is no discharge. CHEST: Clear to auscultation and percussion. No rhonchi, wheezes, rales or rubs. HEART: Regular sinus rhythm. No S3, S4 or murmurs. ABDOMEN: Soft, no masses, no ascites. There is a G-tube in place. No tube feedings at the present time as they are being held during changes in dressings, etc. There is no succussion splash. EXTREMITIES: No clubbing. No edema or cyanosis. No palpable cords or Homans sign. NEUROLOGIC: Normal except for generalized weakness. There are no focal neurologic abnormalities. White blood cell count 5700 with an absolute neutrophil count of 3900, hemoglobin is 10, hematocrit 3 1.6 and platelet count is 363,000. ASSESSMENT: 1. 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 2. Malnutrition. 2. Multilobar pneumonia, possible aspiration. The patient seems to be improving slowly. He is tolerating tube feedings. As noted, there has been significant improvement on the lesions in the left lateral cervical area. U ltimately, the patient will require a repeat PET CT scan in order to determine the effectiveness of b oth the radiation therapy and immunotherapy with pembrolizumab. Dictated By: PEEWEE DONALD MD SR/NTS Conf#: [id number] DID#: [id number] CC: GAYLE COLE MD;*End*
[2018-08-06 14:00] VITALS: BP 99/58; PULSE 83; RESP 18
--- NOTE | 2018-08-06 15:39 | PN ---
Date/Time of Note Date/Time of Note DATE: 08/06/18 TIME: 15:39 Subjective Tired today Objective Vital Signs Date Temp Pulse Resp B/P (MAP) Pulse Ox O2 O2 Flow FiO2 Time Delivery Rate 08/06/18 97.8 83 18 99/58 (72) 99 14:00 08/06/18 2.0 13:50 08/06/18 Nasal 13:50 Cannula Intake and Output 08/05/18 08/05/18 08/06/18 1515:00 23:00 07:00 IntakeIntake Total 600 ml 50 ml 900 ml OutputOutput Total 1 ml BalanceBalance 599 ml 50 ml 900 ml Exam pulm-cta cga ambulation Results/Medications Result Diagram: 08/06/18 0626 08/02/18 0601 Results 24 hrs Laboratory Tests Test 08/05/18 21:27 08/06/18 05:30 08/06/18 06:26 08/06/18 14:13 Bedside Glucose 195 145 117 White Blood Count 5.7 Red Blood Count 3.31 L Hemoglobin 10.0 L Hematocrit 31.6 L Mean Corpuscular 95.5 Volume Mean Corpuscular 30.2 Hemoglobin Mean Corpuscular 31.6 L Hemoglobin Concent Red Cell 13.5 Distribution Width Platelet Count 363 Mean Platelet Volume 9.0 Immature 0.700 H Granulocytes % Neutrophils % 67.1 Lymphocytes % 8.4 L Monocytes % 15.4 H Eosinophils % 7.2 H Basophils % 1.2 Nucleated Red Blood 0.0 Cells % Immature 0.040 H Granulocytes # Neutrophils # 3.9 Lymphocytes # 0.5 L Monocytes # 0.9 Eosinophils # 0.4 Basophils # 0.1 Nucleated Red Blood 0.0 Cells # Procalcitonin 0.22 H Medications Current Medications Senna (Senokot) 1 tab HS PO Last administered on 08/05/18at 21:29; Admin Dose 1 TAB; Start 07/30/18 at 21:00 Magnesium Hydroxide (Milk Of Mag) 30 ml BID PRN PO CONSTIPATION; Start 07/29/18 at 22:00 Lactulose (Enulose) 20 gm DAILY PRN PO CONSTIPATION; Start 07/29/18 at 22:00 Bisacodyl (Dulcolax Supp) 10 mg DAILY PRN [place] CONSTIPATION; Start 07/29/18 at 22:00 Albuterol (Proventil 0.083% (Neb)) 2.5 mg Q4H RESP THERAPY HHN Last administered on 08/06/18 13:50; Admin Dose 2.5 MG; Start 07/30/18 at 01:00 Enoxaparin Sodium (Lovenox) 30 mg DAILY SC Last administered on 08/06/18 09:13; Admin Dose 30 MG; Start 07/30/18 at 09:00 Escitalopram Oxalate (Lexapro) 10 mg DAILY GTB Last administered on 08/06/18 09:10; Admin Dose 10 MG; Start 07/30/18 at 09:00 Insulin Aspart (Novolog Insulin Pen) NOVOLOG *MODERATE* ALGORITHM Q8 SC Last administered on 08/06/18 05:33; Admin Dose 2 UNIT; Start 07/29/18 at 22:00 Nystatin (Nystatin Cr) 1 applic TID TOP Last administered on 08/06/18 13:10; Admin Dose 1 APPLIC; Start 07/30/18 at 09:00 Ondansetron HCl (Zofran Inj) 4 mg Q4H PRN IV NAUSEA AND/OR VOMITING; Start 07/29/18 at 22:00 Polyethylene Glycol (Miralax) 17 gm DAILY PRN GTB CONSTIPATION; Start 07/29/18 at 22:00 Miscellaneous Information 1 ea NOTE XX ; Start 07/29/18 at 22:30 Glucose (Glutose) 15 gm Q15M PRN PO DECREASED GLUCOSE; Start 07/29/18 at 22:30 Glucose (Glutose) 22.5 gm Q15M PRN PO DECREASED GLUCOSE; Start 07/29/18 at 22:30 Dextrose (D50w Syringe) 25 ml Q15M PRN IV DECREASED GLUCOSE; Start 07/29/18 at 22:30 Dextrose (D50w Syringe) 50 ml Q15M PRN IV DECREASED GLUCOSE; Start 07/29/18 at 22:30 Glucagon (Glucagen) 1 mg Q15M PRN IM DECREASED GLUCOSE; Start 07/29/18 at 22:30 Glucose (Glutose) 15 gm Q15M PRN BUCCAL DECREASED GLUCOSE; Start 07/29/18 at 22:30 Docusate Sodium (Colace Liquid Cup) 100 mg BID GTB Last administered on 08/05/18 21:27; Admin Dose 100 MG; Start 07/30/18 at 09:00 Acetaminophen (Tylenol Liquid) 650 mg Q4H PRN GTB MILD PAIN(1-3)OR ELEVATED TEMP Last administered on 08/06/18 09:05; Admin Dose 650 MG; Start 07/30/18 at 09:30 Multivitamins (Multivitamin) 30 ml DAILY GTB Last administered on 08/05/18 09:05; Admin Dose 30 ML; Start 07/31/18 at 09:00 Ascorbic Acid (Vitamin C) 500 mg DAILY GTB Last administered on 08/06/18 09:10; Admin Dose 500 MG; Start 07/31/18 at 09:00 Collagenase (Santyl) 1 applic BID TOP Last administered on 08/06/18 09:29; Admin Dose 1 APPLIC; Start 07/31/18 at 11:30 Insulin Glargine (Lantus) 27 units DAILY@2000 SC Last administered on 08/05/18 21:38; Admin Dose 27 UNITS; Start 07/31/18 at 20:00 Meropenem/Sodium Chloride 50 ml @ 100 mls/hr Q12 IVPB Last administered on 08/06/18 09:21; Admin Dose 100 MLS/HR; Start 08/02/18 at 17:30 Doxycycline Hyclate (Vibramycin) 100 mg BID GTB Last administered on 08/06/18 09:10; Admin Dose 100 MG; Start 08/02/18 at 21:00 Metoclopramide HCl (Reglan) 10 mg Q6 IV Last administered on 08/06/18 12:44; Admin Dose 10 MG; Start 08/03/18 at 00:00 Guaifenesin (Robitussin Liquid Cup) 200 mg Q4H GTB Last administered on 08/06/18 12:44; Admin Dose 200 MG; Start 08/04/18 at 08:00 Lactobacillus Acidophilus (Florajen3 Capsule) 1 each BID GTB Last administered on 08/06/18 09:10; Admin Dose 1 EACH; Start 08/04/18 at 09:00 Hydromorphone HCl (Dilaudid) 1 mg Q3H PRN IV SEVERE PAIN LEVEL 7-10 Last administered on 08/05/18 01:46; Admin Dose 1 MG; Start 08/04/18 at 12:30 Miscellaneous Information (Pending Santyl Order For Wound Care) This patient kilgore... PRN PRN XX WOUND CARE; Start 08/05/18 at 15:30 Assessment/Plan Additional Assessment/Plan Rehab- Toxic metabolic encephalopathy. Activities as tolerated diabetes-monitor Pneumonia-antibiotics per ID History of tongue cancer, status post right hemiglossectomy. Dysphagia, continue n.p.o. Integ- continue wound care for neck wound GAYLE COLE MD Aug 06, 2018 15:39
--- NOTE | 2018-08-06 16:02 | PN ---
DATE: 08/06/2018 SUBJECTIVE: The patient presently getting hand-held nebulizer treatment. PHYSICAL EXAMINATION: VITAL SIGNS: Temperature 97.5, blood pressure 112/57, O2 sat 99%. CHEST: Clinically clear. HEART: S1, S2 heard with no definite gallops. ABDOMEN: Soft, nontender, no hepatosplenomegaly. EXTREMITIES: No edema. LABORATORY DATA: WBC count 5.7, hematocrit 31.6, glucose levels in the normoglycemic range. Procalc itonin 0.22. Dr. Perze's oncologic consultation greatly appreciated. Case discussed with Dr. Perez today. IMPRESSION: 1. Bilateral pneumonia, clinically improving. Procalcitonin levels are improving. 2. Diabetes mellitus type 2, well controlled. 3. Squamous CT of the tongue status post left hemiglossectomy, left radical neck dissection. 4. Underlying major depression, slowly improving. 5. Severe debility with malnutrition. His functional status slowly improving as well. PLAN: Continue speech therapy and rehab therapy per Dr. Womack. Continue IV antibiotics, nam ashlee Merrem and doxycycline. Dictated By: DANNY GUEVARA MD SR/NTS Conf#: [id number] DID#: [id number] CC: GAYLE COLE MD;*EndCC*
[2018-08-06 19:58] VITALS: BP 110/60; PULSE 72; RESP 18
[2018-08-06] MEDS: SENNA TAB PO SCH (20:35)
[2018-08-06] MEDS: INSULIN GLARGINE [LANTus] (100 UNITS/ML) SYG SC SCH (21:48)
[2018-08-06] MEDS: HYDROmorphONE 1 MG/ML SYG IV PRN (22:10)
[2018-08-07 02:00] VITALS: BP 107/62; PULSE 75; RESP 18
[2018-08-07] MEDS: ALBUTEROL 0.083% (NEB) 2.5 MG/3 ML AMP HHN SCH ×6 (02:01→21:08)
[2018-08-07] MEDS: GUAIFENESIN 20 MG/ML 5ML CUP GTB SCH ×5 (03:45→20:26)
[2018-08-07] MEDS: INSULIN ASPART [NOVOLOG] 3 ML PEN SC SCH ×3 (06:00→21:17)
[2018-08-07] MEDS: METOCLOPRAMIDE 10 MG INJ IV SCH ×3 (06:03→17:32)
[2018-08-07 07:30] VITALS: BP 136/62; PULSE 70; RESP 20
[2018-08-07] MEDS: DOCUSATE SODIUM 10 MG/ML (10ML CUP) GTB SCH (09:00)
[2018-08-07] MEDS: MEROPENEM 1 GM/50ML(PMX) 50 ML IVPB SCH ×2 (09:04→21:17)
[2018-08-07] MEDS: MULTIVITAMINS 30 ML CUP GTB SCH (09:05)
[2018-08-07] MEDS: DOXYCYCLINE 100 MG TAB GTB SCH ×2 (09:05→20:26)
[2018-08-07] MEDS: L ACIDOPHIL/B LACTIS/B LONGUM CAPSULE GTB SCH ×2 (09:05→20:26)
[2018-08-07] MEDS: ASCORBIC ACID 500 MG TAB GTB SCH (09:06)
[2018-08-07] MEDS: ESCITALOPRAM 10 MG TAB GTB SCH (09:06)
[2018-08-07] MEDS: NYSTATIN 15 GM CR TOP SCH ×3 (09:07→20:26)
[2018-08-07] MEDS: COLLAGENASE 5 GM (UD JAR) TOP SCH ×2 (09:08→20:26)
[2018-08-07] MEDS: ENOXAPARIN 30 MG/0.3 ML SYG SC SCH (09:09)
--- NOTE | 2018-08-07 11:07 | PN ---
DATE: 08/07/2018 SUBJECTIVE: Patient remains weak. He does not complain of any specific pain. He is not experiencin g nausea or vomiting or cramping. He is having some mild diarrhea. OBJECTIVE: GENERAL: The patient is a well-developed, but thin, malnourished, elderly male in no acute distress. VITAL SIGNS: Temperature 97.6 orally, pulse 72 per minute and regular, respirations 18, blood pressu re 136/62 and pulse oximetry 98% on 2 liters by nasal cannula. HEENT: Normocephalic. No evidence of trauma. Pupils equal, round, reactive to light and accommodat ion. Sclerae nonicteric. Oral mucosa is moist without lesions. Tongue is well papillated but there is evidence of the left hemiglossectomy. There are no mucosal nodules noted. NECK: Supple. No jugular venous distention or thyroid enlargement. No carotid bruits. There is ev idence of previous left neck dissection. There is one small isolated necrotic lesion at the angle of the left mandible. This has a white base but no purulence. All previous nodular lesions have resolved. CHEST: Clear to auscultation and percussion. No rhonchi, wheezes, rales or rubs. NODES: No palpable adenopathy in any lymph node-bearing area. ABDOMEN: Soft. There are no masses or ascites. There is a G-tube in place and there is tube feedin g infusing at 50 mL per hour. There is no succussion splash. EXTREMITIES: No clubbing. No edema or cyanosis. No palpable cords or Homans sign. NEUROLOGIC: Does not reveal any focal neurologic abnormalities. The patient is very weak and somewh at lethargic, however. ASSESSMENTS: 1. Squamous cell carcinoma of the tongue, locally advanced. 2. Malnutrition. 3. Multilobular pneumonia, resolving. Improvement continues. Along with the nutritional support, the patient has had a significant healing of the necrotic lesion s in the left neck which were due to previous radiation therapy. As noted, the patient continues to receive tube feedings at a rate of 50 mL per hour. There has, how ever been some difficulties with hyperglycemia. We will try to make adjustments in the tube feeding formula to avoid this. The hyperglycemia may lead to polyuria and result in volume contraction. The patient has completed his course of radiation therapy. When the patient has recovered sufficient ly and is discharged from the hospital, we will consider repeating a PET/CT scan to determine the res ponse to local disease and if there is any systemic involvement. Dictated By: PEEWEE DONALD MD SR/NTS Conf#: [id number] DID#: [id number] CC: GAYLE COLE MD;*EndCC*
--- NOTE | 2018-08-07 11:33 | PN ---
Date/Time of Note Date/Time of Note DATE: 08/07/18 TIME: 11:32 Subjective Resting in bed Objective Vital Signs Date Temp Pulse Resp B/P (MAP) Pulse Ox O2 O2 Flow FiO2 Time Delivery Rate 08/07/18 73 18 98 Nasal 2.0 08:41 Cannula 08/07/18 97.5 136/62 07:30 (86) Intake and Output 08/06/18 08/06/18 08/07/18 1515:00 23:00 07:00 IntakeIntake Total 50 ml 50 ml 900 ml OutputOutput Total 300 ml BalanceBalance 50 ml -250 ml 900 ml Exam pulm-cta abd-soft min assist Results/Medications Result Diagram: 08/06/18 0626 08/06/18 1828 Results 24 hrs Laboratory Tests Test 08/06/18 14:13 08/06/18 18:28 08/06/18 21:44 08/07/18 06:04 Bedside Glucose 117 216 173 Sodium Level 141 Potassium Level 4.1 Chloride Level 103 Carbon Dioxide Level 34 H Anion Gap 4 L Blood Urea Nitrogen 37 H Creatinine 0.98 Est Glomerular Filtrat Rate mL/min Glucose Level 180 Calcium Level 8.8 Total Bilirubin 0.1 L Direct Bilirubin 0.00 Indirect Bilirubin 0.1 Aspartate Amino 50 H Transf (AST/SGOT) Alanine 33 Aminotransferase (AL T/SGPT) Alkaline Phosphatase 129 H Total Protein 6.5 Albumin 2.9 L Globulin 3.60 H Albumin/Globulin 0.80 Ratio Medications Current Medications Senna (Senokot) 1 tab HS PO Last administered on 08/06/18at 20:35; Admin Dose 1 TAB; Start 07/30/18 at 21:00 Magnesium Hydroxide (Milk Of Mag) 30 ml BID PRN PO CONSTIPATION; Start 07/29/18 at 22:00 Lactulose (Enulose) 20 gm DAILY PRN PO CONSTIPATION; Start 07/29/18 at 22:00 Bisacodyl (Dulcolax Supp) 10 mg DAILY PRN [place] CONSTIPATION; Start 07/29/18 at 22:00 Albuterol (Proventil 0.083% (Neb)) 2.5 mg Q4H RESP THERAPY HHN Last administered on 08/07/18at 08:30; Admin Dose 2.5 MG; Start 07/30/18 at 01:00 Enoxaparin Sodium (Lovenox) 30 mg DAILY SC Last administered on 08/07/18 09:09; Admin Dose 30 MG; Start 07/30/18 at 09:00 Escitalopram Oxalate (Lexapro) 10 mg DAILY GTB Last administered on 08/07/18 09:06; Admin Dose 10 MG; Start 07/30/18 at 09:00 Insulin Aspart (Novolog Insulin Pen) NOVOLOG *MODERATE* ALGORITHM Q8 SC Last administered on 08/06/18at 21:49; Admin Dose 1 UNIT; Start 07/29/18 at 22:00 Nystatin (Nystatin Cr) 1 applic TID TOP Last administered on 08/07/18 09:07; Admin Dose 1 APPLIC; Start 07/30/18 at 09:00 Ondansetron HCl (Zofran Inj) 4 mg Q4H PRN IV NAUSEA AND/OR VOMITING; Start 07/29/18 at 22:00 Polyethylene Glycol (Miralax) 17 gm DAILY PRN GTB CONSTIPATION; Start 07/29/18 at 22:00 Miscellaneous Information 1 ea NOTE XX ; Start 07/29/18 at 22:30 Glucose (Glutose) 15 gm Q15M PRN PO DECREASED GLUCOSE; Start 07/29/18 at 22:30 Glucose (Glutose) 22.5 gm Q15M PRN PO DECREASED GLUCOSE; Start 07/29/18 at 22:3 0 Dextrose (D50w Syringe) 25 ml Q15M PRN IV DECREASED GLUCOSE; Start 07/29/18 at 22:30 Dextrose (D50w Syringe) 50 ml Q15M PRN IV DECREASED GLUCOSE; Start 07/29/18 at 22:30 Glucagon (Glucagen) 1 mg Q15M PRN IM DECREASED GLUCOSE; Start 07/29/18 at 22:30 Glucose (Glutose) 15 gm Q15M PRN BUCCAL DECREASED GLUCOSE; Start 07/29/18 at 22:30 Docusate Sodium (Colace Liquid Cup) 100 mg BID GTB Last administered on 08/06/18at 20:35; Admin Dose 100 MG; Start 07/30/18 at 09:00 Acetaminophen (Tylenol Liquid) 650 mg Q4H PRN GTB MILD PAIN(1-3)OR ELEVATED TEMP Last administered on 08/06/18at 09:05; Admin Dose 650 MG; Start 07/30/18 at 09:30 Multivitamins (Multivitamin) 30 ml DAILY GTB Last administered on 08/07/18 09:05; Admin Dose 30 ML; Start 07/31/18 at 09:00 Ascorbic Acid (Vitamin C) 500 mg DAILY GTB Last administered on 08/07/18 09:06; Admin Dose 500 MG; Start 07/31/18 at 09:00 Collagenase (Santyl) 1 applic BID TOP Last administered on 08/07/18 09:08; Admin Dose 1 APPLIC; Start 07/31/18 at 11:30 Insulin Glargine (Lantus) 27 units DAILY@2000 SC Last administered on 08/06/18 21:48; Admin Dose 27 UNITS; Start 07/31/18 at 20:00 Meropenem/Sodium Chloride 50 ml @ 100 mls/hr Q12 IVPB Last administered on 08/07/18 09:04; Admin Dose 100 MLS/HR; Start 08/02/18 at 17:30 Doxycycline Hyclate (Vibramycin) 100 mg BID GTB Last administered on 08/07/18 09:05; Admin Dose 100 MG; Start 08/02/18 at 21:00 Metoclopramide HCl (Reglan) 10 mg Q6 IV Last administered on 08/07/18 06:03; Admin Dose 10 MG; Start 08/03/18 at 00:00 Guaifenesin (Robitussin Liquid Cup) 200 mg Q4H GTB Last administered on 08/07/18 09:05; Admin Dose 200 MG; Start 08/04/18 at 08:00 Lactobacillus Acidophilus (Florajen3 Capsule) 1 each BID GTB Last administered on 08/07/18 09:05; Admin Dose 1 EACH; Start 08/04/18 at 09:00 Hydromorphone HCl (Dilaudid) 1 mg Q3H PRN IV SEVERE PAIN LEVEL 7-10 Last administered on 08/06/18 22:10; Admin Dose 1 MG; Start 08/04/18 at 12:30 Miscellaneous Information (Pending Santyl Order For Wound Care) This patient kilgore... PRN PRN XX WOUND CARE; Start 08/05/18 at 15:30 Assessment/Plan Additional Assessment/Plan Additional Assessment/Plan Rehab- Toxic metabolic encephalopathy. Continue rehab program diabetes-monitor Pneumonia-antibiotics per ID History of tongue cancer, status post right hemiglossectomy. Dysphagia, continue n.p.o. Integ- continue wound care for neck wound GAYLE COLE MD Aug 07, 2018 11:33
[2018-08-07 14:00] VITALS: BP 94/59; PULSE 73; RESP 20
[2018-08-07] MEDS ORDERED: DOCUSATE SODIUM 10 MG/ML (10ML CUP) GTB PRN (14:00)
[2018-08-07] MEDS: ACETAMINOPHEN 650MG/20.3ML CUP GTB PRN ×2 (15:02→20:21)
[2018-08-07 16:12] VITALS: BP 89/51; PULSE 69; RESP 18
[2018-08-07] MEDS ORDERED: SOD CHLORIDE 0.9% 1,000 ML IV STA (16:18)
[2018-08-07 17:35] VITALS: BP 105/57; PULSE 68; RESP 18
[2018-08-07 19:54] VITALS: BP 99/58; PULSE 85; RESP 18
[2018-08-07] MEDS: SENNA TAB PO SCH (20:26)
[2018-08-07] MEDS: INSULIN GLARGINE [LANTus] (100 UNITS/ML) SYG SC SCH (20:30)
--- NOTE | 2018-08-07 21:34 | PN ---
DATE: 08/07/2018 SUBJECTIVE: The patient feels weak today. Presently comfortable. OBJECTIVE: VITAL SIGNS: Blood pressure was low earlier at 89/51 with O2 saturation 98% on 2 liters nasal cannul a. Responds to questions appropriately. CHEST: Clear anteriorly. HEART: S1, S2 heard. No definite gallops. EXTREMITIES: No edema. LABORATORY DATA: Blood glucose levels in the normoglycemic range. WBC count yesterday was 5.7, lisa tocrit 31.6. IMPRESSION: 1. Bilateral pneumonia, clinically improving. 2. Diabetes mellitus type 2, well-controlled. 3. Squamous cell carcinoma of the tongue, status post left hemiglossectomy, left radical neck dissec tion. 4. Underlying major depression, improving. 5. Severe debility and malnutrition. PLAN: Continue IV antibiotics with Merrem and doxycycline. Continue pulmonary toilet and chest PT. We will discuss with dietitian to consider adding some high protein supplements. Dictated By: DANNY GUEVARA MD SR/NTS Conf#: [id number] DID#: [id number] CC: GAYLE COLE MD;*EndCC*
[2018-08-07] MEDS: SOD CHLORIDE 0.9% 1,000 ML IV SCH (22:30)
[2018-08-07] MEDS ORDERED: traZODone 50 MG TAB GTB ONE (23:00)
[2018-08-08] MEDS: ALBUTEROL 0.083% (NEB) 2.5 MG/3 ML AMP HHN SCH ×6 (00:52→20:02)
[2018-08-08] MEDS: METOCLOPRAMIDE 10 MG INJ IV SCH ×4 (02:40→17:26)
[2018-08-08] MEDS: GUAIFENESIN 20 MG/ML 5ML CUP GTB SCH ×6 (02:41→20:39)
[2018-08-08 02:47] VITALS: BP 107/58; PULSE 68; RESP 18
[2018-08-08] MEDS: SOD CHLORIDE 0.9% 1,000 ML IV SCH (05:53)
[2018-08-08] MEDS: INSULIN ASPART [NOVOLOG] 3 ML PEN SC SCH ×3 (06:00→21:56)
[2018-08-08 07:30] VITALS: BP 126/59; PULSE 65; RESP 20
[2018-08-08] MEDS: MULTIVITAMINS 30 ML CUP GTB SCH (08:17)
[2018-08-08] MEDS: ENOXAPARIN 30 MG/0.3 ML SYG SC SCH (08:18)
[2018-08-08] MEDS: NYSTATIN 15 GM CR TOP SCH ×3 (08:18→20:40)
[2018-08-08] MEDS: L ACIDOPHIL/B LACTIS/B LONGUM CAPSULE GTB SCH ×2 (08:18→20:39)
[2018-08-08] MEDS: ESCITALOPRAM 10 MG TAB GTB SCH (08:18)
[2018-08-08] MEDS: ASCORBIC ACID 500 MG TAB GTB SCH (08:18)
[2018-08-08] MEDS: DOXYCYCLINE 100 MG TAB GTB SCH ×2 (08:18→20:39)
[2018-08-08] MEDS: COLLAGENASE 5 GM (UD JAR) TOP SCH ×2 (08:21→20:40)
[2018-08-08] MEDS: MEROPENEM 1 GM/50ML(PMX) 50 ML IVPB SCH ×2 (08:30→20:39)
[2018-08-08 14:00] VITALS: BP 124/58; PULSE 66; RESP 20
[2018-08-08 20:00] VITALS: BP 108/56; PULSE 67; RESP 18
[2018-08-08] MEDS: INSULIN GLARGINE [LANTus] (100 UNITS/ML) SYG SC SCH (20:41)
[2018-08-08] MEDS: ACETAMINOPHEN 650MG/20.3ML CUP GTB PRN (21:56)
--- NOTE | 2018-08-09 00:36 | PN ---
DATE: 08/08/2018 SUBJECTIVE: The patient appears more responsive today. Responding to questions. Did have four loos e stools. PHYSICAL EXAMINATION: VITAL SIGNS: Temperature 97.6, blood pressure 124/58, O2 saturation 99% on 2 liters nasal cannula. HEENT: Head normocephalic. Mild pallor. No cyanosis or icterus. Tongue is moist. NECK: Supple. CHEST: Clear anteriorly. HEART: S1, S2 heard. No definite gallops. ABDOMEN: Soft. No organomegaly. EXTREMITIES: No edema. LABORATORY DATA: Blood glucose levels in the normal glycemic range. IMPRESSION: 1. Bilateral pneumonia, clinically improving. 2. Diabetes mellitus type 2, well controlled. 3. Squamous cell carcinoma of the tongue status post left hemiglossectomy, left radical neck dissect ion. 4. Underlying major depression, improving. 5. Severe debility and malnutrition. PLAN: We will discontinue senna for constipation. Continue lactulose or MiraLAX as needed only for constipation. We will discuss with the dietitian regarding adding high-protein supplements. Dictated By: DANNY GUEVARA MD SR/NTS Conf#: [id number] DID#: [id number] CC: GAYLE COLE MD;*EndCC*
[2018-08-09] MEDS: METOCLOPRAMIDE 10 MG INJ IV SCH ×4 (00:40→17:08)
[2018-08-09] MEDS: GUAIFENESIN 20 MG/ML 5ML CUP GTB SCH ×6 (00:40→21:19)
[2018-08-09] MEDS: ALBUTEROL 0.083% (NEB) 2.5 MG/3 ML AMP HHN SCH ×6 (01:00→20:16)
[2018-08-09] MEDS: SOD CHLORIDE 0.9% 1,000 ML IV SCH ×2 (01:54→18:38)
[2018-08-09 02:00] VITALS: BP 100/54; PULSE 64; RESP 18
[2018-08-09] MEDS: INSULIN ASPART [NOVOLOG] 3 ML PEN SC SCH ×3 (06:00→21:26)
[2018-08-09 07:30] VITALS: BP 117/56; PULSE 63; RESP 20
--- NOTE | 2018-08-09 07:30 | CONS ---
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 Ruiz and will order chest CT on augmentin, if CT still shows infiltrates will change antibiotics repeat procalcitonin in a.m. 08/04 - merrem/doxy started yesterday CT chest showed increase in infiltrates will order mucinex 200mg q4 hours via G-tube have told nurse to be sure that speech therapy comes to help with managing his oral secretions if pt remains unable to bring up phlegm, consider chest physiotherapy 08/06 - doing well, procalcitonin has improved continue with merrem/doxy thru morning of 08/10 08/09 - if a.m. procalcitonin is again neg will d/c antibiotics 2) diarrhea meds started later 08/02 continue to monitor start probiotic 08/06 - improved Consultation Date/Type/Reason Admit Date/Time Jul 29, 2018 at 19:41 Initial Consult Date Date/Time of Note DATE: 08/09/18 TIME: 07:29 24 HR Interval Summary Free Text/Dictation spoke to nurse and patient no cough no CP, abd pain no N, V, D Exam/Review of Systems Exam Vitals Vital Signs Date Temp Pulse Resp B/P (MAP) Pulse Ox O2 O2 Flow FiO2 Time Delivery Rate 08/09/18 2.0 05:05 08/09/18 98.0 64 18 100/54 100 Nasal 02:00 (69) Cannula Intake and Output 08/08/18 08/08/18 08/09/18 1515:00 23:00 07:00 IntakeIntake Total 50 ml 950 ml 1230 ml OutputOutput Total 2 ml 1 ml BalanceBalance 50 ml 948 ml 1229 ml Constitutional: oriented ENMT: mucosa pink and moist Respiratory: clear to auscultation Cardiovascular: regular rate and rhythm Gastrointestinal: soft, non-tender Results Result Diagram: 08/09/18 0610 08/09/18 0610 Results 24hrs Laboratory Tests Test 08/08/18 13:22 08/08/18 21:55 08/09/18 06:10 08/09/18 06:43 Bedside Glucose 123 105 76 White Blood Count 4.8 Red Blood Count 2.86 L Hemoglobin 8.9 L Hematocrit 27.5 L Mean Corpuscular 96.2 Volume Mean Corpuscular 31.1 Hemoglobin Mean Corpuscular 32.4 Hemoglobin Concent Red Cell Distribution 13.6 Width Platelet Count 273 # Mean Platelet Volume 9.1 Immature Granulocytes 0.400 % Neutrophils % Lymphocytes % Monocytes % Eosinophils % Basophils % Nucleated Red Blood 0.0 Cells % Immature Granulocytes 0.020 # Neutrophils # Lymphocytes # Monocytes # Eosinophils # Basophils # Nucleated Red Blood Cells # Sodium Level 142 Potassium Level 3.7 Chloride Level 109 Carbon Dioxide Level 31 Anion Gap 2 L Blood Urea Nitrogen 30 H Creatinine 0.79 Est Glomerular Filtrat Rate mL/min Glucose Level 67 L Calcium Level 8.1 L Total Bilirubin 0.1 L Direct Bilirubin 0.00 Indirect Bilirubin 0.1 Aspartate Amino 41 Transf (AST/SGOT) Alanine 24 Aminotransferase (ALT/ SGPT) Alkaline Phosphatase 92 Total Protein 5.1 L Albumin 2.2 L Globulin 2.90 Albumin/Globulin Ratio 0.75 Medications Medication Current Medications Magnesium Hydroxide (Milk Of Mag) 30 ml BID PRN PO CONSTIPATION; Start 07/29/18 at 22:00 Lactulose (Enulose) 20 gm DAILY PRN PO CONSTIPATION; Start 07/29/18 at 22:00 Bisacodyl (Dulcolax Supp) 10 mg DAILY PRN NE CONSTIPATION; Start 07/29/18 at 22:00 Albuterol (Proventil 0.083% (Neb)) 2.5 mg Q4H RESP THERAPY HHN Last admin istered on 08/08/18at 20:02; Admin Dose 2.5 MG; Start 07/30/18 at 01:00 Enoxaparin Sodium (Lovenox) 30 mg DAILY SC Last administered on 08/08/18 08:18; Admin Dose 30 MG; Start 07/30/18 at 09:00 Escitalopram Oxalate (Lexapro) 10 mg DAILY GTB Last administered on 08/08/18 08:18; Admin Dose 10 MG; Start 07/30/18 at 09:00 Insulin Aspart (Novolog Insulin Pen) NOVOLOG *MODERATE* ALGORITHM Q8 SC Last administered on 08/07/18at 14:13; Admin Dose 4 UNIT; Start 07/29/18 at 22:00 Nystatin (Nystatin Cr) 1 applic TID TOP Last administered on 08/08/18at 20:40; Admin Dose 1 APPLIC; Start 07/30/18 at 09:00 Ondansetron HCl (Zofran Inj) 4 mg Q4H PRN IV NAUSEA AND/OR VOMITING; Start 07/29/18 at 22:00 Polyethylene Glycol (Miralax) 17 gm DAILY PRN GTB CONSTIPATION; Start 07/29/18 at 22:00 Miscellaneous Information 1 ea NOTE XX ; Start 07/29/18 at 22:30 Glucose (Glutose) 15 gm Q15M PRN PO DECREASED GLUCOSE; Start 07/29/18 at 22:30 Glucose (Glutose) 22.5 gm Q15M PRN PO DECREASED GLUCOSE; Start 07/29/18 at 22:30 Dextrose (D50w Syringe) 25 ml Q15M PRN IV DECREASED GLUCOSE; Start 07/29/18 at 22:30 Dextrose (D50w Syringe) 50 ml Q15M PRN IV DECREASED GLUCOSE; Start 07/29/18 at 22:30 Glucagon (Glucagen) 1 mg Q15M PRN IM DECREASED GLUCOSE; Start 07/29/18 at 22:30 Glucose (Glutose) 15 gm Q15M PRN BUCCAL DECREASED GLUCOSE; Start 07/29/18 at 22:30 Acetaminophen (Tylenol Liquid) 650 mg Q4H PRN GTB MILD PAIN(1-3)OR ELEVATED TEMP Last administered on 08/08/18at 21:56; Admin Dose 650 MG; Start 07/30/18 at 09:30 Multivitamins (Multivitamin) 30 ml DAILY GTB Last administered on 08/08/18at 08:17; Admin Dose 30 ML; Start 07/31/18 at 09:00 Ascorbic Acid (Vitamin C) 500 mg DAILY GTB Last administered on 08/08/18 08:18; Admin Dose 500 MG; Start 07/31/18 at 09:00 Collagenase (Santyl) 1 applic BID TOP Last administered on 08/08/18 20:40; Admin Dose 1 APPLIC; Start 07/31/18 at 11:30 Insulin Glargine (Lantus) 27 units DAILY@2000 SC Last administered on 08/08/18 20:41; Admin Dose 27 UNITS; Start 07/31/18 at 20:00 Meropenem/Sodium Chloride 50 ml @ 100 mls/hr Q12 IVPB Last administered on 08/08/18 20:39; Admin Dose 100 MLS/HR; Start 08/02/18 at 17:30 Doxycycline Hyclate (Vibramycin) 100 mg BID GTB Last administered on 08/08/18 20:39; Admin Dose 100 MG; Start 08/02/18 at 21:00 Metoclopramide HCl (Reglan) 10 mg Q6 IV Last administered on 08/09/18 06:39; Admin Dose 10 MG; Start 08/03/18 at 00:00 Guaifenesin (Robitussin Liquid Cup) 200 mg Q4H GTB Last administered on 08/09/18 00:40; Admin Dose 200 MG; Start 08/04/18 at 08:00 Lactobacillus Acidophilus (Florajen3 Capsule) 1 each BID GTB Last administered on 08/08/18 20:39; Admin Dose 1 EACH; Start 08/04/18 at 09:00 Hydromorphone HCl (Dilaudid) 1 mg Q3H PRN IV SEVERE PAIN LEVEL 7-10 Last administered on 08/06/18 22:10; Admin Dose 1 MG; Start 08/04/18 at 12:30 Miscellaneous Information (Pending [facility] Order For Wound Care) This patient kilgore... PRN PRN XX WOUND CARE; Start 08/05/18 at 15:30 Docusate Sodium (Colace Liquid Cup) 100 mg BID PRN GTB for constipation ; Start 08/07/18 at 14:00 Sodium Chloride 1,000 ml @ 75 mls/hr [id number] IV Last administered on 08/09/18 01:54; Admin Dose 75 MLS/HR; Start 08/07/18 at 22:30 YENNY LUCIANO MD Aug 09, 2018 07:30
[2018-08-09] MEDS: NYSTATIN 15 GM CR TOP SCH ×3 (09:04→21:25)
[2018-08-09] MEDS: ASCORBIC ACID 500 MG TAB GTB SCH (09:04)
[2018-08-09] MEDS: ESCITALOPRAM 10 MG TAB GTB SCH (09:04)
[2018-08-09] MEDS: L ACIDOPHIL/B LACTIS/B LONGUM CAPSULE GTB SCH ×2 (09:04→21:19)
[2018-08-09] MEDS: COLLAGENASE 5 GM (UD JAR) TOP SCH ×2 (09:05→21:25)
[2018-08-09] MEDS: MULTIVITAMINS 30 ML CUP GTB SCH (09:05)
[2018-08-09] MEDS: DOXYCYCLINE 100 MG TAB GTB SCH ×2 (09:05→21:19)
[2018-08-09] MEDS: ENOXAPARIN 30 MG/0.3 ML SYG SC SCH (09:12)
[2018-08-09] MEDS: MEROPENEM 1 GM/50ML(PMX) 50 ML IVPB SCH ×2 (09:26→21:21)
--- NOTE | 2018-08-09 10:52 | PN ---
Date/Time of Note Date/Time of Note DATE: 08/09/18 TIME: 10:51 Objective Vital Signs Date Temp Pulse Resp B/P (MAP) Pulse Ox O2 O2 Flow FiO2 Time Delivery Rate 08/09/18 2.0 08:01 08/09/18 61 18 98 Nasal 08:01 Cannula 08/09/18 97.8 117/56 07:30 (76) Intake and Output 08/08/18 08/08/18 08/09/18 1515:00 23:00 07:00 IntakeIntake Total 50 ml 950 ml 1230 ml OutputOutput Total 2 ml 1 ml BalanceBalance 50 ml 948 ml 1229 ml Exam INTERDISCIPLINARY TEAM CONFERENCE Attended by PT, OT, ST, Vegetable Worker, Social Work, Rehabilitation Nursing, Tile Professional and Paper Bag InspectorField Foreman Exam: Pulm- Abd- BOWEL- Cont BLADDER-Cont SKIN- improving OT- DRESSING-cga BATHING-cga TOILETING-cga PT- BED MOBILITY-min TRANSFERS-min AMBULATION-min 50 feet SPEECH- COGNITION- baseline cognition Dysphagia- NPO A/P- Interdisciplinary team conference held today. Please see interdisciplinary sheet. Working toward d.c. on 08/11 with post discharge follow up of physical therapy, occupational therapy. Results/Medications Result Diagram: 08/09/18 0610 08/09/18 0610 Results 24 hrs Laboratory Tests Test 08/08/18 13:22 08/08/18 21:55 08/09/18 06:10 08/09/18 06:43 Bedside Glucose 123 105 76 White Blood Count 4.8 Red Blood Count 2.86 L Hemoglobin 8.9 L Hematocrit 27.5 L Mean Corpuscular 96.2 Volume Mean Corpuscular 31.1 Hemoglobin Mean Corpuscular 32.4 Hemoglobin Concent Red Cell Distribution 13.6 Width Platelet Count 273 # Mean Platelet Volume 9.1 Immature Granulocytes 0.400 % Neutrophils % Segmented Neutrophils 47 % (Manual) Band Neutrophils % 23 H (Manual) Lymphocytes % Lymphocytes % (Manual) 10 L Monocytes % Monocytes % (Manual) 16 H Eosinophils % Eosinophils % (Manual) 3 Basophils % Basophils % (Manual) 1 Nucleated Red Blood 0.0 Cells % Immature Granulocytes 0.020 # Neutrophils # Neutrophils # (Manual) 2.3 Band Neutrophils # 1.1 H Lymphocytes (Manual) 0.4 L Lymphocytes # Monocytes # Monocytes # (Manual) 0.7 Eosinophils # Basophils # Basophils # (Manual) 0.0 Nucleated Red Blood Cells # Platelet Estimate NORMAL Giant Platelets 1 H Anisocytosis 1+ Sodium Level 142 Potassium Level 3.7 Chloride Level 109 Carbon Dioxide Level 31 Anion Gap 2 L Blood Urea Nitrogen 30 H Creatinine 0.79 Est Glomerular Filtrat Rate mL/min Glucose Level 67 L Calcium Level 8.1 L Total Bilirubin 0.1 L Direct Bilirubin 0.00 Indirect Bilirubin 0.1 Aspartate Amino 41 Transf (AST/SGOT) Alanine 24 Aminotransferase (ALT/ SGPT) Alkaline Phosphatase 92 Total Protein 5.1 L Albumin 2.2 L Globulin 2.90 Albumin/Globulin Ratio 0.75 Procalcitonin 0.18 H Medications Current Medications Magnesium Hydroxide (Milk Of Mag) 30 ml BID PRN PO CONSTIPATION; Start 07/29/18 at 22:00 Lactulose (Enulose) 20 gm DAILY PRN PO CONSTIPATION; Start 07/29/18 at 22:00 Bisacodyl (Dulcolax Supp) 10 mg DAILY PRN NE CONSTIPATION; Start 07/29/18 at 22:00 Albuterol (Proventil 0.083% (Neb)) 2.5 mg Q4H RESP THERAPY HHN Last administered on 08/09/18at 08:01; Admin Dose 2.5 MG; Start 07/30/18 at 01:00 Enoxaparin Sodium (Lovenox) 30 mg DAILY SC Last administered on 08/09/18at 09:12; Admin Dose 30 MG; Start 07/30/18 at 09:00 Escitalopram Oxalate (Lexapro) 10 mg DAILY GTB Last administered on 08/09/18at 09:04; Admin Dose 10 MG; Start 07/30/18 at 09:00 Insulin Aspart (Novolog Insulin Pen) NOVOLOG *MODERATE* ALGORITHM Q8 SC Last administered on 08/07/18at 14:13; Admin Dose 4 UNIT; Start 07/29/18 at 22:00 Nystatin (Nystatin Cr) 1 applic TID TOP Last administered on 08/09/18 09:04; Admin Dose 1 APPLIC; Start 07/30/18 at 09:00 Ondansetron HCl (Zofran Inj) 4 mg Q4H PRN IV NAUSEA AND/OR VOMITING; Start 07/29/18 at 22:00 Polyethylene Glycol (Miralax) 17 gm DAILY PRN GTB CONSTIPATION; Start 07/29/18 at 22:00 Miscellaneous Information 1 ea NOTE XX ; Start 07/29/18 at 22:30 Glucose (Glutose) 15 gm Q15M PRN PO DECREASED GLUCOSE; Start 07/29/18 at 22:30 Glucose (Glutose) 22.5 gm Q15M PRN PO DECREASED GLUCOSE; Start 07/29/18 at 22:30 Dextrose (D50w Syringe) 25 ml Q15M PRN IV DECREASED GLUCOSE; Start 07/29/18 at 22:30 Dextrose (D50w Syringe) 50 ml Q15M PRN IV DECREASED GLUCOSE; Start 07/29/18 at 22:30 Glucagon (Glucagen) 1 mg Q15M PRN IM DECREASED GLUCOSE; Start 07/29/18 at 22:30 Glucose (Glutose) 15 gm Q15M PRN BUCCAL DECREASED GLUCOSE; Start 07/29/18 at 22:30 Acetaminophen (Tylenol Liquid) 650 mg Q4H PRN GTB MILD PAIN(1-3)OR ELEVATED TEMP Last administered on 08/08/18at 21:56; Admin Dose 650 MG; Start 07/30/18 at 09:30 Multivitamins (Multivitamin) 30 ml DAILY GTB Last administered on 08/09/18 09:05; Admin Dose 30 ML; Start 07/31/18 at 09:00 Ascorbic Acid (Vitamin C) 500 mg DAILY GTB Last administered on 08/09/18 09:04; Admin Dose 500 MG; Start 07/31/18 at 09:00 Collagenase (Santyl) 1 applic BID TOP Last administered on 08/09/18 09:05; Admin Dose 1 APPLIC; Start 07/31/18 at 11:30 Insulin Glargine (Lantus) 27 units DAILY@2000 SC Last administered on 08/08/18 20:41; Admin Dose 27 UNITS; Start 07/31/18 at 20:00 Meropenem/Sodium Chloride 50 ml @ 100 mls/hr Q12 IVPB Last administered on 08/09/18 09:26; Admin Dose 100 MLS/HR; Start 08/02/18 at 17:30 Doxycycline Hyclate (Vibramycin) 100 mg BID GTB Last administered on 08/09/18 09:05; Admin Dose 100 MG; Start 08/02/18 at 21:00 Metoclopramide HCl (Reglan) 10 mg Q6 IV Last administered on 08/09/18 06:39; Admin Dose 10 MG; Start 08/03/18 at 00:00 Guaifenesin (Robitussin Liquid Cup) 200 mg Q4H GTB Last administered on 08/09/18 09:04; Admin Dose 200 MG; Start 08/04/18 at 08:00 Lactobacillus Acidophilus (Florajen3 Capsule) 1 each BID GTB Last administered on 08/09/18 09:04; Admin Dose 1 EACH; Start 08/04/18 at 09:00 Hydromorphone HCl (Dilaudid) 1 mg Q3H PRN IV SEVERE PAIN LEVEL 7-10 Last administered on 08/06/18 22:10; Admin Dose 1 MG; Start 08/04/18 at 12:30 [facility]isc[facility] This patient kilgore... PRN PRN XX WOUND CARE; Start 08/05/18 at 15:30 Docusate Sodium (Colace Liquid Cup) 100 mg BID PRN GTB for constipation ; Start 08/07/18 at 14:00 Sodium Chloride 1,000 ml @ 75 mls/hr [id number] IV Last administered on 08/09/18at 01:54; Admin Dose 75 MLS/HR; Start 08/07/18 at 22:30 GAYLE COLE MD Aug 09, 2018 10:52
[2018-08-09 14:00] VITALS: BP 107/57; PULSE 83; RESP 18
[2018-08-09] MEDS: DEXTROSE 50% 50 ML SYRINGE IV PRN ×2 (14:19→21:15)
--- NOTE | 2018-08-09 15:47 | PN ---
DATE: 08/09/2018 SUBJECTIVE: The patient is more awake and responsive. OBJECTIVE: VITAL SIGNS: Temperature 97.8, blood pressure 117/56, O2 sats 100%. CHEST: Few crackles at the bases. HEART: S1, S2 heard. No gallops. EXTREMITIES: No edema. Wasting of the lower extremities. Homans sign is negative. LABORATORY DATA: WBC count 4.8, hematocrit 27.5, platelet count is 273,000. Sodium 142, potassium 3 .7, BUN 30, creatinine 0.79. Procalcitonin 0.18. Dr. Womack's rehab recommendation greatly appreciated. Case discussed with Dr. Womack. I agree with the discharge plans on 08/11/2018. PLAN: Will discuss with speech therapy regarding further swallow evaluation. Dictated By: DANNY GUEVARA MD SR/NTS Conf#: [id number] DID#: [id number] CC: GAYLE COLE MD;*End*
[2018-08-09 20:06] VITALS: BP 107/56; PULSE 67; RESP 18
[2018-08-09] MEDS: INSULIN GLARGINE [LANTus] (100 UNITS/ML) SYG SC SCH (22:40)
[2018-08-10] MEDS: METOCLOPRAMIDE 10 MG INJ IV SCH ×4 (00:17→18:40)
[2018-08-10] MEDS: GUAIFENESIN 20 MG/ML 5ML CUP GTB SCH ×7 (00:17→21:02)
[2018-08-10] MEDS: ALBUTEROL 0.083% (NEB) 2.5 MG/3 ML AMP HHN SCH ×6 (01:00→19:50)
[2018-08-10] MEDS: ACETAMINOPHEN 650MG/20.3ML CUP GTB PRN ×2 (01:48→21:06)
[2018-08-10 02:17] VITALS: BP 99/58; PULSE 62; RESP 18
[2018-08-10] MEDS: INSULIN ASPART [NOVOLOG] 3 ML PEN SC SCH ×3 (05:24→21:24)
[2018-08-10 07:00] VITALS: BP 109/55; PULSE 62; RESP 18
[2018-08-10] MEDS: MULTIVITAMINS 30 ML CUP GTB SCH (08:32)
[2018-08-10] MEDS: COLLAGENASE 5 GM (UD JAR) TOP SCH ×2 (08:33→21:24)
[2018-08-10] MEDS: ASCORBIC ACID 500 MG TAB GTB SCH (08:33)
[2018-08-10] MEDS: L ACIDOPHIL/B LACTIS/B LONGUM CAPSULE GTB SCH ×2 (08:33→21:02)
[2018-08-10] MEDS: ESCITALOPRAM 10 MG TAB GTB SCH (08:33)
[2018-08-10] MEDS: DOXYCYCLINE 100 MG TAB GTB SCH (08:33)
[2018-08-10] MEDS: SOD CHLORIDE 0.9% 1,000 ML IV SCH (08:36)
[2018-08-10] MEDS: MEROPENEM 1 GM/50ML(PMX) 50 ML IVPB SCH (08:36)
[2018-08-10] MEDS: NYSTATIN 15 GM CR TOP SCH ×3 (08:37→21:02)
[2018-08-10] MEDS: ENOXAPARIN 30 MG/0.3 ML SYG SC SCH (09:19)
[2018-08-10 14:00] VITALS: BP 100/58; PULSE 67; RESP 18
--- NOTE | 2018-08-10 14:01 | PN ---
DATE: 08/10/2018 SUBJECTIVE: The patient has occasional cough. Tolerating the G-tube feedings well. Denies any ches t pain, occasional cramps in the legs. VITAL SIGNS: Temperature 97.7, blood pressure 109/55, O2 saturation 97% on room air. CHEST: Clear anteriorly. HEART: S1, S2 heard, no definite gallops. ABDOMEN: Soft. EXTREMITIES: No edema. LABORATORY DATA: Blood glucose levels yesterday where in the hypoglycemic range, hence, Lantus insul in dose has been adjusted. IMPRESSION: 1. Bilateral pneumonia, clinically improved. 2. Diabetes mellitus type 2, well controlled. 3. Squamous cell CA of the tongue status post left hemiglossectomy. . 4. Underlying major depression, improving. 5. Severe debility, malnutrition. 6. Metabolic encephalopathy, resolved. PLAN: Discharge plans in progress. I have discussed from discharge planning. We will arrange for home health. The patient's family will also need to be educated regarding the tube feedings. W ill discuss with the patient's son and discharge tomorrow. Dictated By: DANNY GUEVARA MD SR/NTS Conf#: [id number] DID#: [id number] CC: GAYLE COLE MD;*End*
--- NOTE | 2018-08-10 17:17 | PN ---
DATE: 08/10/2018 SUBJECTIVE: No significant events overnight. The patient is now being prepared for discharge. His is being taught G-tube feeding. Family is requesting caregiving services prior to discharge. T he patient was also noted to have hypoglycemic episode overnight. OBJECTIVE: VITAL SIGNS: Temperature 97.4, pulse 67, blood pressure 100/68, O2 saturation 96% on room air. NECK: Supple. No JVD or lymphadenopathy. CARDIAC: S1, S2. No added sounds or murmurs. CHEST: Diminished air entry on both bases. LABORATORY DATA: White count 4.1, hemoglobin 9.5, platelets 270. BUN 26, creatinine 0.78. ASSESSMENT AND PLAN: 1. Rehabilitation, toxic metabolic encephalopathy. Continues to slowly improve with discharge plann ing in place, continues rehabilitation program. 2. Diabetes mellitus. Hypoglycemic episode was noted. Insulin is to be adjusted. 3. History of tongue cancer status post right hemiglossectomy with tube feeding. 4. Dysphagia. Management as above. 5. Continue wound care for neck wound care. Dictated By: DARY GARCIA MD SV/NTS Conf#: [id number] DID#: [id number] CC: GAYLE COLE MD; DANNY GUEVARA MD;*End*
--- NOTE | 2018-08-10 18:24 | PN ---
DATE: 08/10/2018 PSYCHOLOGY -- INDIVIDUAL SESSION -- [id number] This is a followup on a patient who was seen last week. The patient was seen in his bed. The patien t reports that he has felt like he has made progress. The patient's was present with his lincoln graham. The patient does want to return home as soon as possible. The patient is going to be discharg ed in a day or two. The patient still is depressed but feels like he is stronger and making progress . The patient's also supported the progress while he has been in the program. Worked with the patient to try to continue to encourage him to work on himself and try to increase his level of overa ll functioning emotionally and physically. Dictated By: ИВАН JIMÉNEZ PHD URVASHI/MINI Conf#: [id number] DID#: [id number] CC: GAYLE COLE MD;*End*
--- NOTE | 2018-08-10 19:28 | PN ---
DATE: 08/10/2018 SUBJECTIVE: Mr. Nicolas states that he is feeling stronger. Still however, states he is unable to s wallow. He has not complained of pain at this time. He is not experiencing nausea and vomiting. OBJECTIVE: GENERAL: The patient is a well-developed, but thin and chronically ill-appearing male who is in no a cute distress. VITAL SIGNS: Temperature 97.7, pulse is 67 per minute and regular, respirations 18, blood pressure 1 00/58, pulse oximetry 97% on room air. SKIN: No ecchymosis, no petechiae or rashes. Fair skin turgor. HEENT: Normocephalic. No evidence of trauma. Pupils are equal, round, reactive to light and accomm odation. Sclerae are nonicteric. Oral mucosa is dry. There are no lesions. NECK: Supple. No jugular venous distention or thyroid enlargement. There is one small ulcerated no dule at the angle of the mandible on the left. All others have flattened and are healed. CHEST: Clear to auscultation and percussion. No rhonchi, wheezes, rales or rubs. NODES: No palpable lymphadenopathy in lymph node bearing area. HEART: Regular sinus rhythm. No S3, S4 or murmurs. ABDOMEN: Soft. There are no masses, no ascites. There is a percutaneous gastrostomy tube through w hich tube feeding is infusing at 50 mL per hour. There is no succussion splash. No rebound tenderne ss. EXTREMITIES: No clubbing, edema or cyanosis. No palpable cords or Homans sign. NEUROLOGIC: Normal except for generalized weakness. LABORATORY DATA: White count 4100 with an absolute neutrophil count of 2700, hemoglobin 9.5, hematoc rit 29.5 and platelet count is 270,000. On 08/09/2018, the patient's sodium is 142, potassium 3.7, creatinine 0.79, BUN 30. Calcium 8.1, tot al bilirubin 0.1, direct bilirubin 0, AST 41, ALT 24, alkaline phosphatase 92 and albumin 2.2. ASSESSMENT: 1. Carcinoma of the tongue locally advanced. 2. Malnutrition, improving. DISCUSSION: The patient has improved in strength. There has been definite improvement in healing of the nodules on the lateral surface of the neck. There is only 1 small ulcerative lesion at the angl e of mandible on the left side. The patient has gained 2 kilograms since admission to the unit. It is anticipated the patient will be discharged from the rehab unit on 08/11/2018 and will be retur [facility]. He will continue physical therapy at home. In approximately 3 or 4 weeks, we will repeat the PET-CT scan if the patient is strong enough. Dictated By: PEEWEE DONALD MD SR/NTS Conf#: [id number] DID#: [id number] CC: GAYLE COLE MD; DANNY GUEVARA MD;*EndCC*
[2018-08-10 20:00] VITALS: BP 106/57; PULSE 68; RESP 18
[2018-08-10] MEDS ORDERED: INSULIN GLARGINE [LANTus] (100 UNITS/ML) SYG SC SCH (20:00)
[2018-08-10] MEDS: INSULIN GLARGINE [LANTus] (100 UNITS/ML) SYG SC SCH (21:22)
[2018-08-11] MEDS: METOCLOPRAMIDE 10 MG INJ IV SCH ×4 (00:57→18:06)
[2018-08-11] MEDS: ALBUTEROL 0.083% (NEB) 2.5 MG/3 ML AMP HHN SCH ×6 (01:00→21:00)
[2018-08-11 02:41] VITALS: BP 98/59; PULSE 76; RESP 18
[2018-08-11] MEDS: GUAIFENESIN 20 MG/ML 5ML CUP GTB SCH ×5 (04:00→18:07)
[2018-08-11] MEDS: INSULIN ASPART [NOVOLOG] 3 ML PEN SC SCH ×2 (06:00→14:00)
[2018-08-11 07:30] VITALS: BP 115/53; PULSE 65; RESP 18
[2018-08-11] MEDS: HYDROmorphONE 1 MG/ML SYG IV PRN ×2 (08:38→15:11)
[2018-08-11] MEDS: ASCORBIC ACID 500 MG TAB GTB SCH (09:48)
[2018-08-11] MEDS: L ACIDOPHIL/B LACTIS/B LONGUM CAPSULE GTB SCH (09:48)
[2018-08-11] MEDS: ESCITALOPRAM 10 MG TAB GTB SCH (09:49)
[2018-08-11] MEDS: ENOXAPARIN 30 MG/0.3 ML SYG SC SCH (09:50)
[2018-08-11] MEDS: COLLAGENASE 5 GM (UD JAR) TOP SCH (09:55)
[2018-08-11] MEDS: MULTIVITAMINS 30 ML CUP GTB SCH (09:55)
[2018-08-11] MEDS: NYSTATIN 15 GM CR TOP SCH ×2 (09:56→15:09)
[2018-08-11 14:00] VITALS: BP 100/54; PULSE 65; RESP 18
[2018-08-11] MEDS ORDERED: POTASSIUM CHLORIDE 20 MEQ POWDER FOR ORAL SOLN GTB SCH (14:30)
[2018-08-11] MEDS ORDERED: FUROSEMIDE 40 MG INJ IV SCH (14:30)
[2018-08-11 18:00] VITALS: BP 125/65; PULSE 88; RESP 18
[2018-08-11] MEDS ORDERED: INSULIN GLARGINE [LANTus] (100 UNITS/ML) SYG SC ONE (18:30)
[2018-08-11] MEDS: INSULIN GLARGINE [LANTus] (100 UNITS/ML) SYG SC SCH (18:55)
--- NOTE | 2018-08-11 19:15 | PN ---
DATE: 08/11/2018 SUBJECTIVE: The patient slept well overnight, is tolerating tube feeding, repositioned every few oralia rs, remains incontinent of bladder and bowel. OBJECTIVE: VITAL SIGNS: Temperature 97.6, pulse 65, blood pressure 100/54, O2 saturation 96% on room air. HEENT: Dry mucous membranes. CARDIAC: S1, S2. CHEST: Diminished air entry bilaterally. ABDOMEN: Soft, nontender. No guarding or rebound. EXTREMITIES: No cyanosis, clubbing, edema. NEUROLOGIC: Generalized weakness. ASSESSMENT AND PLAN: 1. Rehabilitation. The patient continues to slowly improve from significant global weakness, contin ues on rehabilitation program, discharge planning continued. 2. Diabetes mellitus, currently not hyperglycemic. 3. History of carcinoma of the tongue with locally advanced disease, currently stable, no new events . 4. Malnutrition. Continue tube feeding as tolerated. Dictated By: DARY GARCIA MD SV/NTS Conf#: [id number] DID#: [id number] CC: GAYLE COLE MD; DANNY GUEVARA MD;*EndCC*
--- NOTE | 2018-08-13 06:19 | PN ---
DATE: 08/11/2018 SUBJECTIVE: The patient is awake and alert, able to converse. Denies any chest pain or shortness of breath. Affect much improved. PHYSICAL EXAMINATION: VITAL SIGNS: Temperature 97.6, blood pressure 115/56, O2 saturation 96% on room air. HEENT: Head normocephalic. Mild pallor without cyanosis. CHEST: Clear anteriorly. HEART: S1, S2 heard. No definite gallops. EXTREMITIES: No edema. IMPRESSION: 1. Bilateral pneumonia, clinically improved. Procalcitonin level is below 0.2. Antibiotics discont inued, namely Merrem and doxycycline. 2. Diabetes mellitus type 2, well controlled. 3. Squamous cell CA of the tongue, status post left hemiglossectomy and left radical neck dissection . 4. Underlying major depression, improved. 5. Severe debility, malnutrition. 6. Metabolic encephalopathy, resolved. PLAN: The patient is going to be discharged today. I have discussed in detail with the patient's so n regarding tube feedings. I have discussed with the patient's as well regarding blood glucose checks and the patient will be followed as outpatient with a course of next 2 weeks. We will get a P ET CT over the course of next 4 weeks. A repeat chest x-ray in about 2 weeks. Labs also in 2 weeks. Home health is being arranged. Dictated By: DANNY GUEVARA MD SR/NTS Conf#: [id number] DID#: [id number] CC: GAYLE COLE MD;*EndCC*
== END 2018-08-11 19:00 | disposition home health service (06) | DRG 91 ==
LOC: VRC 19:41
PROVIDERS: ADMIT Physical Medicine & Rehabilitation; ATTEND Internal Medicine
PROC: F07Z5ZZ Bed Mobility Treatment (ICD-10-PCS; principal; 2018-07-29)
PROC: F08Z2ZZ Grooming/Personal Hygiene Treatment (ICD-10-PCS; 2018-07-29)
DX: G92 Toxic encephalopathy (principal); J18.9 Pneumonia, unspecified organism; E46 Unspecified protein-calorie malnutrition; Z68.1 Body mass index [BMI] 19.9 or less, adult; F33.1 Major depressive disorder, recurrent, moderate; R13.10 Dysphagia, unspecified; C02.9 Malignant neoplasm of tongue, unspecified; E11.9 Type 2 diabetes mellitus without complications; Z98.890 Other specified postprocedural states; R19.7 Diarrhea, unspecified
CPT/HCPCS: 36600; 71045; 71250; 80048; 80053; 82803; 82962; 84145; 84439; 84443; 84484; 85025; 87081; 87086; 92526; 92610; 93005; 94640; 94664; 94667; 94668; 97110; 97112; 97116; 97163; 97166; 97530; 97535; 97542; J1170; J1650; J1815; J2185; J2270; J2765; J7030

== ENCOUNTER 2018-12-01 19:28 | Inpatient (IN) | payer MEDICARE, OTHER, BC ==
[~2018-12-01] VITALS: Ht 172.7 cm; Wt 50.9 kg
[~2018-12-01 19:28] MED LIST changes: +AMOX1TAB10 PO; +ESCI10TA48 PO; +LANT3I SC; -TRAZ-149 PO; +TRAZ-188 PO
[2018-12-01] MEDS ORDERED: CEFEPIME 2GM/50 ML (PMX) 50 ML IVPB STA (19:47)
[2018-12-01] MEDS ORDERED: VANCOMYCIN 1 GM (PMX) 250 ML IVPB ONE (20:00)
[2018-12-01] MEDS ORDERED: SOD CHLORIDE 0.9% IV ONE (20:00)
[2018-12-01] MEDS ORDERED: ACETAMINOPHEN 325 MG TAB PO PRN (21:00)
[2018-12-01] MEDS ORDERED: ONDANSETRON 4 MG INJ IV PRN ×2 (21:00→21:30)
[2018-12-02] MEDS: ALBUTEROL 0.5% (NEB) 2.5 MG/0.5 ML AMP NEB SCH ×6 (01:00→22:02)
[2018-12-02] MEDS ORDERED: GLUCOSE GEL 15 GRAM TUBE PO PRN ×2 (01:30)
[2018-12-02] MEDS ORDERED: GLUCAGON 1 MG INJ IM PRN (01:30)
[2018-12-02] MEDS ORDERED: GLUCOSE GEL 15 GRAM TUBE BUCCAL PRN (01:30)
[2018-12-02] MEDS ORDERED: DEXTROSE 50% 50 ML SYRINGE IV PRN ×2 (01:30)
[2018-12-02 01:40] VITALS: Ht 172.7 cm; Wt 50.9 kg
[2018-12-02] MEDS: SOD CHLORIDE 0.45% 1,000 ML IV SCH ×4 (02:44→16:25)
[2018-12-02] MEDS: ACCU-CHEK XX SCH ×3 (06:00→17:03)
[2018-12-02] MEDS: INSULIN ASPART [NOVOLOG] 3 ML PEN SC SCH ×3 (06:00→17:12)
[2018-12-02] MEDS: PANTOPRAZOLE 40 MG INJ IV SCH (06:30)
[2018-12-02] MEDS ORDERED: INSULIN ASPART [NOVOLOG] 3 ML PEN SC SCH (08:00)
[2018-12-02 08:17] VITALS: BP 111/55; PULSE 61; RESP 18
[2018-12-02] MEDS ORDERED: VANCOMYCIN IV PER PHARMACY XX SCH (09:00)
[2018-12-02] MEDS: PIPER-TAZO 2.25 GM (PMX) 50 ML IVPB SCH ×2 (11:31→17:05)
[2018-12-02 14:53] VITALS: BP 98/58; PULSE 67; RESP 18
[2018-12-02 20:14] VITALS: BP 98/54; PULSE 65; RESP 16
[2018-12-02] MEDS: VANCOMYCIN 1 GM 250 ML IVPB SCH (21:10)
[2018-12-03] MEDS: ALBUTEROL 0.5% (NEB) 2.5 MG/0.5 ML AMP NEB SCH ×6 (00:13→20:04)
[2018-12-03] MEDS: PIPER-TAZO 2.25 GM (PMX) 50 ML IVPB SCH ×4 (00:18→17:48)
[2018-12-03] MEDS: INSULIN ASPART [NOVOLOG] 3 ML PEN SC SCH ×4 (00:27→18:50)
[2018-12-03 02:12] VITALS: BP 108/55; PULSE 68; RESP 17
[2018-12-03] MEDS: SOD CHLORIDE 0.45% 1,000 ML IV SCH ×3 (03:53→23:05)
[2018-12-03] MEDS: PANTOPRAZOLE 40 MG INJ IV SCH (05:42)
[2018-12-03] MEDS: ACCU-CHEK XX SCH ×4 (05:54→18:00)
[2018-12-03 08:00] VITALS: BP 103/59; PULSE 68; RESP 20
[2018-12-03] MEDS: COLLAGENASE 5 GM (UD JAR) TOP SCH (11:08)
[2018-12-03 14:00] VITALS: BP 89/54; PULSE 65; RESP 19
[2018-12-03 14:30] VITALS: BP 99/61
[2018-12-03 15:00] VITALS: BP 101/55
[2018-12-03 20:00] VITALS: BP 103/53; PULSE 61; RESP 18
[2018-12-03] MEDS ORDERED: INSULIN GLARGINE [LANTus] (100 UNITS/ML) SYG SC SCH (20:00)
[2018-12-03] MEDS: VANCOMYCIN 1 GM 250 ML IVPB SCH (21:32)
[2018-12-04] MEDS: ALBUTEROL 0.5% (NEB) 2.5 MG/0.5 ML AMP NEB SCH ×4 (00:27→12:51)
[2018-12-04] MEDS ORDERED: traZODone 50 MG TAB PO ONE (00:30)
[2018-12-04] MEDS: INSULIN ASPART [NOVOLOG] 3 ML PEN SC SCH ×3 (01:17→11:59)
[2018-12-04 02:00] VITALS: BP 116/61; PULSE 64; RESP 18
[2018-12-04] MEDS: PANTOPRAZOLE 40 MG INJ IV SCH (06:00)
[2018-12-04] MEDS: PIPER-TAZO 2.25 GM (PMX) 50 ML IVPB SCH ×2 (06:00)
[2018-12-04] MEDS: ACCU-CHEK XX SCH ×3 (06:00→11:59)
[2018-12-04 08:00] VITALS: BP 125/64; PULSE 64; RESP 16
[2018-12-04] MEDS ORDERED: LEVOFLOXACIN 500 MG TAB PO ONE (08:30)
[2018-12-04] MEDS ORDERED: TRIMETHOPRIM/SULFAMETHOX (DS) TAB GTB SCH (09:00)
[2018-12-04] MEDS ORDERED: AMOXICILLIN/CLAV 875 MG TAB PO SCH (09:00)
[2018-12-04] MEDS: SOD CHLORIDE 0.45% 1,000 ML IV SCH (09:05)
[2018-12-04] MEDS: COLLAGENASE 5 GM (UD JAR) TOP SCH (09:48)
== END 2018-12-04 19:00 | disposition home or self-care (01) | DRG 178 ==
LOC: E/R 19:28 → 5EC 20:33
PROVIDERS: ADMIT Internal Medicine; ATTEND Internal Medicine
PROC: 30233N1 Transfusion of Nonautologous Red Blood Cells into Peripheral Vein, Percutaneous Approach (ICD-10-PCS; principal; 2018-12-04)
DX: J69.0 Pneumonitis due to inhalation of food and vomit (principal); C79.89 Secondary malignant neoplasm of other specified sites; E87.2 Acidosis; F05 Delirium due to known physiological condition; Z16.11 Resistance to penicillins; E46 Unspecified protein-calorie malnutrition; Z68.1 Body mass index [BMI] 19.9 or less, adult; L98.499 Non-pressure chronic ulcer of skin of other sites with unspecified severity; B95.61 Methicillin susceptible Staphylococcus aureus infection as the cause of diseases classified elsewhere; B96.1 Klebsiella pneumoniae [K. pneumoniae] as the cause of diseases classified elsewhere; C02.9 Malignant neoplasm of tongue, unspecified; D64.9 Anemia, unspecified; E03.9 Hypothyroidism, unspecified; E11.65 Type 2 diabetes mellitus with hyperglycemia; E78.5 Hyperlipidemia, unspecified; K80.20 Calculus of gallbladder without cholecystitis without obstruction; R09.02 Hypoxemia; R68.2 Dry mouth, unspecified; Z87.891 Personal history of nicotine dependence; Z93.1 Gastrostomy status; Z92.21 Personal history of antineoplastic chemotherapy; Z92.3 Personal history of irradiation; Z79.84 Long term (current) use of oral hypoglycemic drugs
CPT/HCPCS: 36415; 36430; 71045; 76705; 80048; 80053; 80061; 81003; 82270; 82728; 82962; 83036; 83540; 83605; 83735; 84145; 84484; 85025; 85045; 85610; 85651; 85730; 86850; 86900; 86901; 86920; 87045; 87070; 87081; 87086; 89220; 93005; 94640; 94664; 96365; 97162; C9113; J0692; J1815; J2543; J3370; J7030; P9016